=== PATIENT | female | born 1960 | race African-American/Black ===

== ENCOUNTER → 2016-05-14 | Outpatient (CLI) | payer OTHER ==
--- NOTE | 2016-05-19 13:37 | XCELERA REPORT ---
[address] [address] Transthoracic Echocardiogram Report Name: MARTI NESBITT Age: 55 yrs Gender: Female : 1960 Patient Status: Outpatient Patient Location: Study Date: 05/14/2016 11:23 AM Height: 65 in Weight: 220 lb BSA: 2.1 m2 Procedure: A complete two-dimensional transthoracic echocardiogram was performed (2D, M-mode, spectral and color flow Doppler). The study was technically difficult with many images being suboptimal in quality. Reason For Study: R94.39 Ordering Physician: [facility] Performed By: Nora Brian Interpretation Summary The left ventricular ejection fraction is normal. Doppler measurements suggest pseudonormalized left ventricular relaxation, which is associated with grade II/IV or mild to moderate diastolic dysfunction There is borderline concentric left ventricular hypertrophy. The left ventricle is grossly normal size. Not all wall segments were well visualized. Regional wall motion abnormalities cannot be excluded due to limited visualization. The right ventricular systolic function is normal. The left atrium is mildly dilated. The right atrium is normal in size There is no mitral valve stenosis. There is a trace amount of mitral regurgitation No aortic regurgitation is present. There is no aortic valve stenosis There is a trace or physiologic amount of tricuspid regurgitation There is mild pulmonary hypertension by echo Right ventricular systolic pressure is estimated to be elevated at 30- 40mmHg. The aortic root is not well visualized. The inferior vena cava was not well visualized There is no pericardial effusion. MMode/2D Measurements \T\ Calculations RVDd: 3.4 cm LVIDd: 4.8 cm FS: 39.0 % Ao root diam: 3.0 cm IVSd: 1.0 cm LVIDs: 3.0 cm EDV(Teich): 109.5 ml LVPWd: 0.96 cm ESV(Teich): 33.7 ml Ao root area: 7.0 cm2 EF(Teich): 69.3 % LA dimension: 4.4 cm Doppler Measurements \T\ Calculations MV E max jesus manuel: MV P1/2t max jesus manuel: Ao V2 max: LV V1 max P.4 cm/sec 84.9 cm/sec 138.5 cm/sec 6.8 mmHg MV A max jesus manuel: MV P1/2t: 69.1 msec Ao max PG: LV V1 max: 104.1 cm/sec 7.7 mmHg 130.8 cm/sec MV E/A: 0.81 MVA(P1/2t): 3.2 cm2 MV dec slope: 359.9 cm/sec2 MV dec time: 0.25 sec PA V2 max: TR max jesus manuel: 119.4 cm/sec 296.2 cm/sec PA max P.7 mmHgTR max P.1 mmHg Left Ventricle The left ventricle is grossly normal size. There is borderline concentric left ventricular hypertrophy. The left ventricular ejection fraction is normal. Doppler measurements suggest pseudonormalized left ventricular relaxation, which is associated with grade II/IV or mild to moderate diastolic dysfunction. Not all wall segments were well visualized. Regional wall motion abnormalities cannot be excluded due to limited visualization. Right Ventricle The right ventricle is grossly normal size. The right ventricular systolic function is normal. Atria The right atrium is normal in size. The left atrium is mildly dilated. Mitral Valve The mitral valve is grossly normal. There is no mitral valve stenosis. There is a trace amount of mitral regurgitation. Aortic Valve The aortic valve is not well visualized secondary to technical limitations. There is no aortic valve stenosis. No aortic regurgitation is present. Tricuspid Valve The tricuspid valve is not well visualized secondary to technical limitations. There is a trace or physiologic amount of tricuspid regurgitation. There is mild pulmonary hypertension by echo. Right ventricular systolic pressure is estimated to be elevated at 30-40mmHg. Pulmonic Valve The pulmonic valve is not well visualized. Great Vessels The aortic root is not well visualized. The inferior vena cava was not well visualized. Effusions There is no pericardial effusion. : [facility] [employer] [facility] [employer] > Troy Carver
== END ==
LOC: SP 10:58
DX: R94.39 Abnormal result of other cardiovascular function study (principal)
CPT/HCPCS: 93306

== ENCOUNTER 2016-06-09 12:32 | Observation (INO) | payer OTHER ==
[2016-06-09] MEDS ORDERED: ASPIRIN 81 MG TABLET, CHEWABLE PO ONE (13:05)
--- NOTE | 2016-06-09 13:08 | ER Document Report ---
ED Medical Screen (RME) - General Stated Complaint: DIZZY Mode of Arrival: Wheelchair Information source: Patient Notes: Patient complains of dizziness, diaphoresis, and pain to shoulder blade area that started earlier this morning. Patient complains of difficulty breathing. Patient states that upper back pain is currently resolved. hx: Patient reports some heart enlargement. dyslipidemia I have greeted and performed a rapid initial assessment of this patient. A comprehensive ED assessment and evaluation of the patient, analysis of test results and completion of the medical decision making process will be conducted by additional ED providers. TRAVEL OUTSIDE OF THE [place] IN LAST 30 DAYS: No - Related Data Allergies/Adverse Reactions: No Known Allergies Allergy (Verified 06/09/16 13:02) Past Medical History - Past Medical History Cardiac Medical History: Reports: Hx Hypercholesterolemia, Hx Hypertension Pulmonary Medical History: Reports: Hx Bronchitis, Hx COPD, Hx Pneumonia Denies: Hx Tuberculosis Neurological Medical History: Reports: Hx Migraine Renal/ Medical History: Reports: Hx Ectopic , Hx Ovarian Cysts GI Medical History: Reports: Hx Gastroesophageal Reflux Disease Psychiatric Medical History: Reports: Hx Depression Past Surgical History: Reports: Hx Gynecologic Surgery - ectopic, Hx Hysterectomy - Immunizations Hx Diphtheria, Pertussis, Tetanus Vaccination: No - unknown Physical Exam - Vital signs Vitals: Temp Pulse Resp BP Pulse Ox 98.1 F 82 34 H 139/85 H 94 06/09/16 13:01 06/09/16 13:01 06/09/16 13:01 06/09/16 13:01 06/09/16 13:01 - Respiratory Respiratory status: No respiratory distress Breath sounds: Normal. No: Rales, Rhonchi, Stridor, Wheezing Course - Vital Signs Vital signs: Temp Pulse Resp BP Pulse Ox 98.1 F 82 34 H 139/85 H 94 06/09/16 13:01 06/09/16 13:01 06/09/16 13:01 06/09/16 13:01 06/09/16 13:01
[2016-06-09 13:36] LABS: ABSOLUTE BASOPHILS # (AUTO) 0.1 10^3/uL (0.0-0.2); ABSOLUTE EOSINOPHILS # (AUTO) 0.1 10^3/uL (0.0-0.6); ABSOLUTE LYMPHOCYTES (AUTO) 2.5 10^3/uL (0.5-4.7); ABSOLUTE MONOCYTES (AUTO) 0.4 10^3/uL (0.1-1.4); ABSOLUTE NEUT (AUTO) 2.8 10^3/uL (1.7-8.2); EOSINOPHILS % (AUTO) 2.4 % (0-6); HEMATOCRIT 40.4 % (36.0-47.0); HEMOGLOBIN 13.4 g/dL (12.0-15.5); HGB HCT DIFFERENCE -0.2; LYMPHOCYTES % (AUTO) 42.5 % (13-45); MEAN CORPUSCULAR HEMOGLOBIN 28.1 pg (27.0-33.4); MEAN CORPUSCULAR HGB CONC 33.1 g/dL (32.0-36.0); MEAN CORPUSCULAR VOLUME 85 fl (80-97); MONOCYTES % (AUTO) 7.4 % (3-13); RED BLOOD COUNT 4.76 10^6/uL (3.72-5.28); RED CELL DISTRIBUTION WIDTH 13.6 % (11.5-14.0); SEGMENTED NEUTROPHILS % (AUTO) 46.7 % (42-78)
[2016-06-09 13:50] LABS: ALANINE AMINOTRANSFERASE 32 U/L (9-52); ALBUMIN 4.8 g/dL (3.5-5.0); ALKALINE PHOSPHATASE 102 U/L (38-126); ANION GAP 10 (5-19); ASPARTATE AMINO TRANSFERASE 20 U/L (14-36); BILIRUBIN,TOTAL 0.7 mg/dL (0.2-1.3); BLOOD UREA NITROGEN 22 mg/dL (7-20); CALCIUM 11.5 mg/dL (8.4-10.2); CARBON DIOXIDE 29 mmol/L (22-30); CHLORIDE 102 mmol/L (98-107); CREATINE KINASE 74 U/L (30-135); CREATININE RESULT 0.74 mg/dL (0.52-1.25); GLUCOSE 117 mg/dL (75-110); LIPASE 89.9 U/L (23-300); MAGNESIUM 1.8 mg/dL (1.6-2.3); POTASSIUM 4.4 mmol/L (3.6-5.0); SODIUM 141.3 mmol/L (137-145)
[2016-06-09 14:01] LABS: TROPONIN I < 0.012 ng/mL
--- NOTE | 2016-06-09 14:17 | ER Document Report ---
ED General - General Chief Complaint: Dizziness Stated Complaint: DIZZY Mode of Arrival: Wheelchair Information source: Patient Notes: 55 yr old female presents with complaints of diaphoresis, sob, neck pressure and chest pressure reading to bilateral shoulders. Patient notes symptoms lasted about 25 minutes. Denies any previous similar episodes has had a recent stress test TRAVEL OUTSIDE OF THE [place] IN LAST 30 DAYS: No - HPI Onset: Just prior to arrival Onset/Duration: Sudden Quality of pain: Pressure Severity: Mild Pain Level: 1 Associated symptoms: Chest pain, Shortness of breath Exacerbated by: Denies Relieved by: Denies Similar symptoms previously: No Recently seen / treated by doctor: Yes - Related Data Allergies/Adverse Reactions: No Known Allergies Allergy (Verified 06/09/16 13:02) Past Medical History - General Information source: Patient - Social History Smoking Status: Former Smoker Cigarette use (# per day): No Chew tobacco use (# tins/day): No Smoking Education Provided: No Frequency of alcohol use: None Drug Abuse: None Family History: Arthritis, CAD, CVA, DM, Hyperlipidemia, Hypertension, Malignancy Patient has suicidal ideation: No Patient has homicidal ideation: No - Past Medical History Cardiac Medical History: Reports: Hx Hypercholesterolemia, Hx Hypertension Pulmonary Medical History: Reports: Hx Bronchitis, Hx COPD, Hx Pneumonia Denies: Hx Tuberculosis Neurological Medical History: Reports: Hx Migraine Renal/ Medical History: Reports: Hx Ectopic , Hx Ovarian Cysts. Denies: Hx Peritoneal Dialysis GI Medical History: Reports: Hx Gastroesophageal Reflux Disease Psychiatric Medical History: Reports: Hx Depression Past Surgical History: Reports: Hx Gynecologic Surgery - ectopic, Hx Hysterectomy - Immunizations Hx Diphtheria, Pertussis, Tetanus Vaccination: No - unknown Review of Systems - Review of Systems Notes: REVIEW OF SYSTEMS: CONSTITUTIONAL : Admits to diaphoresis EENT: Admits to pressure to the neck. CARDIOVASCULAR: Admits to chest pain RESPIRATORY: shortness of breath GASTROINTESTINAL: Denies abdominal pain or distention. Denies nausea, vomiting , or diarrhea. Denies blood in vomitus, stools, or per rectum. Denies black, tarry stools. Denies constipation. GENITOURINARY: Denies difficulty urinating, painful urination, burning, frequency, blood in urine, or discharge. FEMALE GENITOURINARY: Denies vaginal bleeding, heavy or abnormal periods, irregular periods. Denies vaginal discharge or odor. MUSCULOSKELETAL: Miss pain rating to her back SKIN: Denies rash, lesions or sores. HEMATOLOGIC : Denies easy bruising or bleeding. LYMPHATIC: Denies swollen, enlarged glands. NEUROLOGICAL: Denies confusion or altered mental status. Denies passing out or loss of consciousness. Denies dizziness or lightheadedness. Denies headache. Denies weakness or paralysis or loss of use of either side. Denies problems with gait or speech. Denies sensory loss, numbness, or tingling. Denies seizures. PSYCHIATRIC: Denies anxiety or stress. Denies depression, suicidal ideation, or homicidal ideation. ALL OTHER SYSTEMS REVIEWED AND NEGATIVE. Dictation was performed using [employer] voice recognition software PHYSICAL EXAMINATION: GENERAL: Well-appearing, well-nourished and in no acute distress. HEAD: Atraumatic, normocephalic. EYES: Pupils equal round and reactive to light, extraocular movements intact, conjunctiva are normal. ENT: Nares patent, oropharynx clear without exudates. Moist mucous membranes. NECK: Normal range of motion, supple without lymphadenopathy LUNGS: Breath sounds clear to auscultation bilaterally and equal. No wheezes rales or rhonchi. HEART: Regular rate and rhythm without murmurs ABDOMEN: Soft, nontender, nondistended abdomen. No guarding, no rebound. No masses appreciated. Female : deferred Musculoskeletal: Normal range of motion, no pitting or edema. No cyanosis. NEUROLOGICAL: Cranial nerves grossly intact. Normal speech, normal gait. Normal sensory, motor exams PSYCH: Normal mood, normal affect. SKIN: Warm, Dry, normal turgor, no rashes or lesions noted. Physical Exam - Vital signs Vitals: Temp Pulse Resp BP Pulse Ox 98.1 F 82 34 H 139/85 H 94 06/09/16 13:01 06/09/16 13:01 06/09/16 13:01 06/09/16 13:01 06/09/16 13:01 Course - Re-evaluation Re-evalutation: 06/09/16 14:46 At this time patient is asymptomatic, recent stress test on March 21 of last year notes mild decreased uptake in the distal anterior wall consistent with mild ischemia however could be related to the breast attenuation artifact, given patient's symptoms I do believe 8 overnight stay is appropriate She will be admitted to hospitalist service for observation - Vital Signs Vital signs: Temp Pulse Resp BP Pulse Ox 98.1 F 71 18 155/88 H 98 06/09/16 13:01 06/09/16 14:24 06/09/16 14:24 06/09/16 14:24 06/09/16 14:24 - Laboratory Result Diagrams: 06/09/16 13:15 06/09/16 13:15 Laboratory results interpreted by me: 06/09/16 13:15 BUN 22 H Glucose 117 H Calcium 11.5 H - Diagnostic Test Radiology reviewed: Image reviewed, Reports reviewed - EKG Interpretation by Or EKG shows normal: Sinus rhythm, [place], Intervals, QRS Complexes Discharge - Discharge Clinical Impression: Excessive sweating Chest pain Qualifiers: Chest pain type: unspecified Qualified Code(s): R07.9 - Chest pain, unspecified Condition: Stable Disposition: ADMITTED OBSERVATION Admitting Provider: Hospitalist Unit Admitted: Telemetry
[2016-06-09] MEDS ORDERED: DIAZEPAM 5 MG TABLET PO PRN (14:54)
[2016-06-09] MEDS ORDERED: ONDANSETRON HCL INJ/PF 4 MG/2 ML SDV IV PRN (14:54)
[2016-06-09] MEDS ORDERED: NITROGLYCERIN 0.4 MG/TAB 25 TAB/BOTTLE SL PRN (14:54)
--- NOTE | 2016-06-09 17:03 | PDOC H&P ---
History of Present Illness Admission Date/PCP: 06/09/16 14:54 Patient complains of: Dizziness, diaphoresis and upper sternal chest pressure radiating to jaw History of Present Illness: MARTI NESBITT is a 55 year old female who presents to [facility]'s emergency department this afternoon, complaining of diaphoresis, dizziness, post scapular pain, and upper sternal chest pain. She states the episode occurred while she was in [employer] standing and lasted approximately 25 minutes. EMS was called and she was transported here and given 4 baby aspirin to chew in route. She states by the time she arrived here her pain had resolved. She has had no further episodes of pain or dizziness. She denies any shortness of breath, palpitations or dyspnea associated with pain. She had similar episodes of chest discomfort in March. She underwent a nuclear Cardiolite stress test here. Test was read by Dr. Carver, who states she has mild distal anterior wall ischemia or attenuation from breast tissue. She's had no further episodes of any chest discomfort up until this time. She states she was recently started on medication for cholesterol. She does not smoke or drink. She does have positive family history for coronary artery disease. She had an older sister who from sudden cardiac is 62. She states her mother also has history of coronary artery disease and is living. She denies having any nausea or vomiting associated with pain. She denies any history of GERD. She states she did not eat breakfast this morning but she quite often does not. Past Medical History Cardiac Medical History: Reports: Hyperlipidema, Hypertension Pulmonary Medical History: Reports: Bronchitis, Chronic Obstructive Pulmonary Disease (COPD), Pneumonia Denies: Tuberculosis Neurological Medical History: Reports: Migraine Endocrine Medical History: Reports: None Renal/ Medical History: Reports: None Malignancy Medical History: Reports: None GI Medical History: Reports: Gastroesophageal Reflux Disease Musculoskeltal Medical History: Reports: None Skin Medical History: Reports: None Psychiatric Medical History: Reports: Depression Traumatic Medical History: Reports: None Hematology: Reports: None Infectious Medical History: Reports: None Past Surgical History Past Surgical History: Reports: Hysterectomy Social History Information Source: Patient Lives with: Spouse/Significant other Smoking Status: Never Smoker Frequency of Alcohol Use: None Hx Recreational Drug Use: No Hx Prescription Drug Abuse: No - Advance Directive Resuscitation Status: Full Code Family History Family History: Arthritis, CAD, CVA, DM, Hyperlipidemia, Hypertension, Malignancy Parental Family History Reviewed: Yes Children Family History Reviewed: Yes Sibling(s) Family History Reviewed.: Yes Medication/Allergy Home Medications: Nitrofurantoin/Nitrofuran Mac [Macrobid 100 mg Capsule] 100 mg PO BID #10 capsule 04/02/15 Nystatin/Dexameth/Diphen [Magic Mouthwash (Omh Formula) Susp] 5 ml PO QID #120 ml 09/21/15 Doxycycline Hyclate 100 mg PO BID #20 capsule 11/17/15 Guaifenesin/Codeine Phosphate [Codeine-Guaifen 10-100 mg/5 ml] 5 - 10 ml PO Q6 # 120 liquid 11/17/15 Prednisone [Deltasone 20 mg Tablet] 3 tab PO DAILY 5 Days 11/17/15 Hydrocodone Bit/Homatropine [Hycodan Syrup 5-1.5 mg/5 ml Ud Cup] 5 ml PO Q4HP PRN #120 ml 12/02/15 Levofloxacin 500 mg PO DAILY #5 tablet 12/02/15 Prednisone [Deltasone 10 mg Tablet] 10 mg PO ASDIR PRN #15 tablet 12/29/15 Allergies/Adverse Reactions: No Known Allergies Allergy (Verified 06/09/16 13:02) Review of Systems Constitutional: ABSENT: chills, fever(s), headache(s), weight gain, weight loss Eyes: PRESENT: as per HPI Ears: PRESENT: as per HPI Cardiovascular: PRESENT: chest pain Respiratory: ABSENT: cough, hemoptysis Gastrointestinal: ABSENT: abdominal pain, constipation, diarrhea, hematemesis, hematochezia, nausea, vomiting Genitourinary: ABSENT: dysuria, hematuria Musculoskeletal: ABSENT: joint swelling Integumentary: ABSENT: rash, wounds Neurological: ABSENT: abnormal gait, abnormal speech, confusion, dizziness, focal weakness, syncope Psychiatric: ABSENT: anxiety, depression, homidical ideation, suicidal ideation Endocrine: ABSENT: cold intolerance, heat intolerance, polydipsia, polyuria Hematologic/Lymphatic: ABSENT: easy bleeding, easy bruising Physical Exam Vital Signs: Temp Pulse Resp BP Pulse Ox 98.1 F 71 18 155/88 H 98 06/09/16 13:01 06/09/16 14:24 06/09/16 14:24 06/09/16 14:24 02/05/17 15:11 General appearance: PRESENT: no acute distress, morbidly obese, well-developed, well-nourished Head exam: PRESENT: atraumatic, normocephalic Eye exam: PRESENT: conjunctiva pink, EOMI, PERRLA. ABSENT: scleral icterus Ear exam: PRESENT: normal external ear exam Mouth exam: PRESENT: moist, tongue midline Neck exam: ABSENT: carotid bruit, JVD, lymphadenopathy, thyromegaly Respiratory exam: PRESENT: clear to auscultation zoey. ABSENT: rales, rhonchi, wheezes Cardiovascular exam: PRESENT: RRR. ABSENT: diastolic murmur, rubs, systolic murmur Pulses: PRESENT: normal dorsalis pedis pul Vascular exam: PRESENT: normal capillary refill GI/Abdominal exam: PRESENT: normal bowel sounds, soft. ABSENT: distended, guarding, mass, organolmegaly, rebound, tenderness Rectal exam: PRESENT: deferred Extremities exam: PRESENT: full ROM. ABSENT: calf tenderness, clubbing, pedal edema Neurological exam: PRESENT: alert, awake, oriented to person, oriented to place , oriented to time, oriented to situation, CN II-XII grossly intact. ABSENT: motor sensory deficit Psychiatric exam: PRESENT: appropriate affect, normal mood. ABSENT: homicidal ideation, suicidal ideation Skin exam: PRESENT: dry, intact, warm. ABSENT: cyanosis, rash Results Impressions: Chest X-Ray 06/09/16 13:06 IMPRESSION: NO SIGNIFICANT RADIOGRAPHIC FINDING IN THE CHEST. Assessment & Plan - Diagnosis (1) Chest pain Qualifiers: Chest pain type: unspecified Qualified Code(s): R07.9 - Chest pain, unspecified Is this a current diagnosis for this admission?: YesPlan: Pain is atypical for angina. More likely GI origin. Will observe on tele overnight and do serial troponins (2) Diaphoresis Is this a current diagnosis for this admission?: YesPlan: Possible hypoglycemia will monitor (3) Dizziness Is this a current diagnosis for this admission?: YesPlan: Will monitor for arrythmia. (4) Dyslipidemia Is this a current diagnosis for this admission?: YesPlan: Will place on statin fasting lipid in am - Time Time Spent: 50 to 70 Minutes Critical Time spent with patient: 25-34 minutes Medications reviewed and adjusted accordingly: Yes Anticipated discharge: Home Within: within 24 hours
[2016-06-09 17:42] LABS: APPEARANCE,URINE SLIGHTLY-CLOUDY; BILIRUBIN,URINE NEGATIVE (NEGATIVE); CALCIUM OXALATE CRYSTALS,URINE MANY /HPF; GLUCOSE, URINE NEGATIVE (NEGATIVE); KETONES,URINE NEGATIVE (NEGATIVE); LEUKOCYTE ESTERASE,URINE NEGATIVE (NEGATIVE); NITRITE,URINE NEGATIVE (NEGATIVE); PROTEIN,URINE NEGATIVE (NEGATIVE); URINE SPECIFIC GRAVITY 1.028; UROBILINOGEN,URINE NEGATIVE mg/dL (<2.0)
--- NOTE | 2016-06-09 19:26 | EKG REPORT ---
SEVERITY:- NORMAL ECG - SINUS RHYTHM : Confirmed by: Troy Carver 09-Jun-2016 19:25:46
[2016-06-09] MEDS: LANSOPRAZOLE 30 MG TAB.RAP.DR PO SCH (19:48)
[2016-06-09] MEDS ORDERED: ATORVASTATIN CALCIUM 20 MG TABLET PO SCH (22:00)
[2016-06-10 03:32] LABS: CHOLESTEROL 229.38 mg/dL (0-200); Direct HDL 64 mg/dL (>40); TRIGLYCERIDES 123 mg/dL (<150)
[2016-06-10 03:44] LABS: DIRECT LDL 147 mg/dL (<100)
[2016-06-10] MEDS: LANSOPRAZOLE 30 MG TAB.RAP.DR PO SCH (06:09)
[2016-06-10 08:20] VITALS: BP 130/81
--- NOTE | 2016-06-10 08:56 | PDOC DISCHARGE SUMMARY ---
General - Admit/Disc Date/PCP Admission Date/Primary Care Provider: 06/09/16 14:54 Discharge Date: 06/10/16 - \ - Discharge Diagnosis (1) Chest pain Is this a current diagnosis for this admission?: YesSummary: Ruled out for acute coronary syndrome, most likely GERD (2) Diaphoresis Is this a current diagnosis for this admission?: YesSummary: Resolved (3) Dizziness Is this a current diagnosis for this admission?: YesSummary: Resolved (4) Dyslipidemia Is this a current diagnosis for this admission?: YesSummary: Fasting lipids this am show cholesterol 229 ldl 147 hdl 64. Will continue fish oil supplements - Additional Information Resuscitation Status: Full Code Discharge Diet: Regular Discharge Activity: Activity As Tolerated, Balance Activity w/Rest Home Medications: Biotin [Biotin 5 mg Capsule] 1 cap PO DAILY 06/10/16 Iron 1 tab PO DAILY 06/10/16 Multivitamin [Multivitamins] 1 cap PO DAILY 06/10/16 Vitamin E (Dl,Tocopheryl Acet) [Vitamin E] 1,000 units PO DAILY 06/10/16 History of Present Illness History of Present Illness: MARTI NESBITT is a 55 year old female who presents to [facility]'s emergency department this afternoon, complaining of diaphoresis, dizziness, post scapular pain, and upper sternal chest pain. 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 EMS was called and she was transported here and given 4 baby aspirin to chew in route. She states by the time she arrived here her pain had resolved. She has had no further episodes of pain or dizziness. She denies any shortness of breath, palpitations or dyspnea associated with pain. She had similar episodes of chest discomfort in March. She underwent a nuclear Cardiolite stress test here. Test was read by Dr. Carver, who states she has mild distal anterior wall ischemia or attenuation from breast tissue. She's had no further episodes of any chest discomfort up until this time. She states she was recently started on medication for cholesterol. She does not smoke or drink. She does have positive family history for coronary artery disease. She had an older sister who from sudden cardiac is 62. She states her mother also has history of coronary artery disease and is living. She denies having any nausea or vomiting associated with pain. She denies any history of GERD. She states she did not eat breakfast this morning but she quite often does not. Hospital Course Hospital Course: Patient was admitted to the telemetry floor and monitored overnight. She had no reoccurrence of her pain. She had no further episodes of dizziness. Serial troponins were done which were all < 0.012. telemetry showed no arrythmias. She did have occassional multifocal PVCs. She feels well and wishes to be discharged. She will follow up with primary care provider if symptoms reoccur. Physical Exam Vital Signs: Temp Pulse Resp BP Pulse Ox 97.6 F 75 16 130/81 H 100 06/10/16 08:19 06/10/16 08:19 06/10/16 08:19 06/10/16 08:19 06/10/16 08:19 Intake & Output 06/09/16 06/10/16 06/11/16 06:59 06:59 06:59 Intake Total 180 Balance 180 Weight 111 kg General appearance: PRESENT: no acute distress, well-developed, well-nourished Head exam: PRESENT: atraumatic, normocephalic Eye exam: PRESENT: conjunctiva pink, EOMI, PERRLA. ABSENT: scleral icterus Ear exam: PRESENT: normal external ear exam Mouth exam: PRESENT: moist, tongue midline Neck exam: ABSENT: carotid bruit, JVD, lymphadenopathy, thyromegaly Respiratory exam: PRESENT: clear to auscultation zoey. ABSENT: rales, rhonchi, wheezes Cardiovascular exam: PRESENT: RRR. ABSENT: diastolic murmur, rubs, systolic murmur Pulses: PRESENT: normal dorsalis pedis pul Vascular exam: PRESENT: normal capillary refill GI/Abdominal exam: PRESENT: normal bowel sounds, soft. ABSENT: distended, guarding, mass, organolmegaly, rebound, tenderness Rectal exam: PRESENT: deferred Extremities exam: PRESENT: full ROM. ABSENT: calf tenderness, clubbing, pedal edema Neurological exam: PRESENT: alert, awake, oriented to person, oriented to place , oriented to time, oriented to situation, CN II-XII grossly intact. ABSENT: motor sensory deficit Skin exam: PRESENT: dry, intact, warm. ABSENT: cyanosis, rash Results Laboratory Results: 06/09/16 06/10/16 17:19 03:06 Triglycerides 123 Cholesterol 229.38 H LDL Cholesterol Direct 147 H VLDL Cholesterol 25.0 HDL Cholesterol 64 Urine Color YELLOW Urine Appearance SLIGHTLY-CLOUDY Urine pH 5.0 Ur Specific [place] 1.028 Urine Protein NEGATIVE Urine Glucose (UA) NEGATIVE Urine Ketones NEGATIVE Urine Blood NEGATIVE Urine Nitrite NEGATIVE Ur Leukocyte Esterase NEGATIVE Urine WBC (Auto) 2 Urine RBC (Auto) 1 06/09/16 06/09/16 06/10/16 16:07 21:09 03:06 Troponin I < 0.012 < 0.012 < 0.012 Impressions: Chest X-Ray 06/09/16 13:06 IMPRESSION: NO SIGNIFICANT RADIOGRAPHIC FINDING IN THE CHEST. Qualifiers PATEINT BEING DISCHARGED WITH ANY OF THE FOLLOWING DIAGNOSIS?: No Plan Discharge Plan: Home with . Follow up if any symptoms reoccur. Time Spent: Less than 30 Minutes
[2016-06-10] MEDS ORDERED: ASPIRIN 81 MG TABLET, ENT COATED PO SCH (10:00)
== END 2016-06-10 09:41 | disposition home or self-care (01) ==
LOC: ER 12:32 → EH 14:54 → UNDOADMOB 15:13 → 5 18:30
PROVIDERS: ADMIT Internal Medicine; ATTEND Internal Medicine
DX: R07.9 Chest pain, unspecified (principal); R61 Generalized hyperhidrosis; R42 Dizziness and giddiness; E78.5 Hyperlipidemia, unspecified; J44.9 Chronic obstructive pulmonary disease, unspecified; K21.9 Gastro-esophageal reflux disease without esophagitis; G43.909 Migraine, unspecified, not intractable, without status migrainosus; F32.9 Major depressive disorder, single episode, unspecified; Z79.899 Other long term (current) drug therapy; Z90.710 Acquired absence of both cervix and uterus
CPT/HCPCS: 93005; 99285; 36415 ×2; 82553; 82550; 83690; 83735; 85025; 80053; 81001; 84484 ×2; 85379; 80061; 71020; 93010; G0378 ×3; J3490 ×2

== ENCOUNTER → 2016-06-18 | Outpatient (CLI) | payer OTHER | LOC: CCC 11:39 | DX: E83.52 Hypercalcemia (principal) | CPT/HCPCS: 36415; 82310 ==

== ENCOUNTER → 2016-08-23 | Outpatient (CLI) | payer OTHER | LOC: LAB 13:35 | DX: E83.52 Hypercalcemia (principal) | CPT/HCPCS: 36415; 82040; 82330; 84443 ==

== ENCOUNTER → 2016-08-27 | Outpatient (CLI) | payer OTHER ==
[2016-08-27 16:29] LABS: FREE T3 4.12 pg/mL (2.77-5.27)
[2016-08-27 16:43] LABS: THYROID STIMULATING HORMONE 0.7 uIU/mL (0.47-4.68)
[2016-08-29 11:56] LABS: PTH INTACT 101 pg/mL (15-65)
[2016-09-02 07:37] LABS: THYROID STIM IMMUNOGLOBULIN 56 % (0-139)
== END ==
LOC: LAB 15:02
DX: E05.90 Thyrotoxicosis, unspecified without thyrotoxic crisis or storm (principal); E83.52 Hypercalcemia
CPT/HCPCS: 36415; 83519; 83970; 84439; 84443; 84481

== ENCOUNTER 2016-10-11 09:50 | Emergency (ER) | payer OTHER ==
--- NOTE | 2016-10-11 10:20 | ER Document Report ---
ED GI/ - General Chief Complaint: Vaginal Itching Stated Complaint: VAGINAL PROBLEM Time Seen by Provider: 10/11/16 10:10 Mode of Arrival: Ambulatory Notes: 55-year-old female presents to ED for vaginal burning and itching. She states it has been going on for a week or two. TRAVEL OUTSIDE OF THE [place] IN LAST 30 DAYS: No - HPI Patient complains to provider of: Vaginal discharge Onset: Other - 1-2 weeks Quality of pain: Burning Severity at maximum: Mild Severity in ED: Mild Pain Level: 1 Vaginal bleeding (Compared to normal period): None Menstrual period history: Post-menopausal LMP: hysterectomy Associated symptoms: Vaginal discharge, Other - odor, itching and burning Exacerbated by: Denies Relieved by: Denies Similar symptoms previously: Yes Recently seen / treated by doctor: No - Related Data Allergies/Adverse Reactions: No Known Allergies Allergy (Verified 10/11/16 09:52) Past Medical History - General Information source: Patient - Social History Smoking Status: Never Smoker Cigarette use (# per day): No Chew tobacco use (# tins/day): No Smoking Education Provided: No Frequency of alcohol use: None Drug Abuse: None Lives with: Family Family History: Arthritis, CAD, CVA, DM, Hyperlipidemia, Hypertension, Malignancy, Thyroid Disfunction Patient has suicidal ideation: No Patient has homicidal ideation: No - Past Medical History Cardiac Medical History: Reports: Hx Hypercholesterolemia, Other - She is being tested for heart problems she is not sure what is going on at this time Pulmonary Medical History: Reports: Hx Bronchitis, Hx Pneumonia EENT Medical History: Reports: None Neurological Medical History: Reports: Hx Cerebrovascular Accident, Hx Migraine Endocrine Medical History: Reports: Other - Hyperparathyroid hypocalcemia Renal/ Medical History: Reports: Hx Ectopic , Hx Ovarian Cysts Malignancy Medical History: Reports: None GI Medical History: Reports: None Musculoskeltal Medical History: Reports Hx Arthritis Skin Medical History: Reports None Psychiatric Medical History: Reports: Hx Bipolar Disorder, Hx Depression - Medication free x 4 years Traumatic Medical History: Reports: None Infectious Medical History: Reports: None Past Surgical History: Reports: Hx Gynecologic Surgery - ectopic, Hx Hysterectomy - Immunizations Hx Diphtheria, Pertussis, Tetanus Vaccination: No - unknown Review of Systems - Review of Systems Constitutional: No symptoms reported EENT: No symptoms reported Cardiovascular: No symptoms reported Respiratory: No symptoms reported Gastrointestinal: No symptoms reported Genitourinary: No symptoms reported Female Genitourinary: Vaginal discharge, Vaginal odor, Other - Vaginal burning Musculoskeletal: No symptoms reported Skin: No symptoms reported Hematologic/Lymphatic: No symptoms reported Neurological/Psychological: No symptoms reported -: Yes All other systems reviewed and negative Physical Exam - Vital signs Vitals: Temp Pulse Resp BP Pulse Ox 97.7 F 84 20 143/83 H 96 10/11/16 09:52 10/11/16 09:52 10/11/16 09:52 10/11/16 09:52 10/11/16 09:52 Interpretation: Normal - General General appearance: Appears well, Alert - HEENT Head: Normocephalic, Atraumatic Eyes: Normal Pupils: PERRL - Respiratory Respiratory status: No respiratory distress Chest status: Nontender Breath sounds: Normal Chest palpation: Normal - Cardiovascular Rhythm: Regular Heart sounds: Normal auscultation Murmur: No - Abdominal Inspection: Normal Distension: No distension Bowel sounds: Normal Tenderness: Nontender Organomegaly: No organomegaly - Back Back: Normal, Nontender - Extremities General upper extremity: Normal inspection, Nontender, Normal color, Normal ROM , Normal temperature General lower extremity: Normal inspection, Nontender, Normal color, Normal ROM , Normal temperature, Normal weight bearing. No: Mohini's sign - Neurological Neuro grossly intact: Yes Cognition: Normal Orientation: AAOx4 Susan Coma Scale Eye Opening: Spontaneous [place] Coma Scale Verbal: Oriented [place] Coma Scale Motor: Obeys Commands [place] Coma Scale Total: 15 Speech: Normal Motor strength normal: LUE, RUE, LLE, RLE Sensory: Normal - Psychological Associated symptoms: Normal affect, Normal mood - Skin Skin Temperature: Warm Skin Moisture: Dry Skin Color: Normal Course - Vital Signs Vital signs: Temp Pulse Resp BP Pulse Ox 98.4 F 80 18 149/82 H 98 10/11/16 12:34 10/11/16 12:34 10/11/16 12:34 10/11/16 12:34 10/11/16 12:34 - Laboratory Laboratory results interpreted by me: 10/11/16 10:40 Urine Blood MODERATE H Discharge - Discharge Clinical Impression: Vaginal itching Condition: Stable Disposition: HOME, SELF-CARE Instructions: Family Physicians / Practices Additional Instructions: You were seen today for vaginal itching and irritation with an intermittent vaginal odor. please call in 2 hours for results at [phone] CEPHALOSPORINS: An antibiotic of the cephalosporin class has been prescribed. This type of antibiotic covers a wide variety of infections, including those of the skin, lungs, middle ear, and urinary tract. This antibiotic is somewhat similar to the penicillin family. In rare cases , a person who is allergic to penicillin will also be allergic to this medication. If you have had a severe allergic reaction to penicillin, and have not taken this antibiotic since that time, notify your doctor. Antibiotics which cover many germs ("broad spectrum" antibiotics) are more likely to cause diarrhea or "yeast" infections. Women prone to vaginal yeast problems may suffer an attack after taking this antibiotic. In infants, oral thrush (white spots "stuck" on the cheek) or yeast diaper rash may result. See your doctor if these problems occur. Call the doctor at once if you develop hives, itching, shortness of breath , or lightheadedness. DOXYCYCLINE: Doxycycline (Vibramycin, Doryx) is an antibiotic of the tetracycline family. This type of drug is useful for infections of the respiratory tract and genital tract, and is sometimes used for intestinal infections. Unlike most tetracyclines, doxycycline can be taken with food. It is longer acting, and (usually) less prone to side effects than regular tetracycline. Tetracycline antibiotics can stain immature teeth and SHOULD NOT BE TAKEN BY CHILDREN, NURSING MOTHERS, OR WOMEN. Tetracyclines can make you more prone to sunburn. Abdominal cramping, nausea, and diarrhea are occasional side effects. Women may experience vaginal yeast infections. Call the doctor at once if you develop hives, itching, shortness of breath , or lightheadedness. AZITHROMYCIN: Azithromycin (Zithromax) is a broad spectrum antibiotic in the same class as erythromycin. It can treat a variety of bacterial infections, but is most frequently used for respiratory infections. Azithromycin is extremely long-lasting. It accumulates in body tissues and continues to kill bacteria for many days. In order to improve absorption, Azithromycin should be taken at least one hour before or two hours after a meal. It does not have the same strong tendency to upset the stomach as erythromycin and is usually very well tolerated. Patients who have had a rash or other true allergic reactions to erythromycin should not take this medication. Call if you develop gastrointestinal distress, severe diarrhea, rash, hives, itching, or shortness of breath. METRONIDAZOLE: Metronidazole (Flagyl) has been prescribed. This medication is used to kill a type of bacteria called anaerobes, and protozoan parasites such as trichomonas and Giardia. Flagyl often causes a metallic taste in the mouth and mild nausea. Do not use alcohol in any form with Flagyl (including alcohol in medication elixirs). Flagyl interacts with alcohol to cause flushing, palpitations, headache, stomach cramps, and vomiting. Do not use Flagyl if you are taking Antabuse (disulfiram). Call the doctor at once if you develop rash, shortness of breath, itching, or lightheadedness. FLUCONAZOLE: Fluconazole (Diflucan) is an antifungal drug. It is useful for serious fungal infections, but is also excellent for oral or vaginal yeast infections. Diflucan interacts with some medicines. This is a concern if you are taking anticoagulants (such as Coumadin), phenytoin (Dilantin), cyclosporin, or oral hypoglycemics (such as tolbutamide, Orinase, glipizide, Glucotrol, glyburide, DiaBeta, Glynase, and Micronase). Be sure the doctor knows if you are taking one of these medicines. We don't know how Diflucan affects . If you are planning to become , discuss this with your doctor. Diflucan has few side effects. Minor side effects may include nausea, headache, or diarrhea. Call the doctor if you develop a skin rash, shortness of breath, or other new symptoms. MICONAZOLE: Several brands of miconazole are available without prescription. These medicines are safe and effective for dev (yeast) vaginal infections. You can select suppositories or cream. Brands include Monistat, Gyne-Lotrimin, and Mycelex. Don't use miconazole if you're , unless you discuss it with your doctor. If you develop rash, irritation, fever, increased discharge, or abdominal pain, stop using the medicine and see your doctor. FOLLOW-UP CARE: If you have been referred to a physician for follow-up care, call the physician s office for an appointment as you were instructed or within the next two days. If you experience worsening or a significant change in your symptoms, notify the physician immediately or return to the Emergency Department at any time for re-evaluation. Forms: Elevated Blood Pressure Referrals: [facility] [Provider Group] - Follow up as needed
[2016-10-11 11:31] LABS: APPEARANCE,URINE SLIGHTLY-CLOUDY; BILIRUBIN,URINE NEGATIVE (NEGATIVE); GLUCOSE, URINE NEGATIVE (NEGATIVE); KETONES,URINE NEGATIVE (NEGATIVE); PROTEIN,URINE NEGATIVE (NEGATIVE); URINE SPECIFIC GRAVITY 1.029; UROBILINOGEN,URINE NEGATIVE mg/dL (<2.0)
[2016-10-11 11:32] LABS: LEUKOCYTE ESTERASE,URINE NEGATIVE (NEGATIVE); NITRITE,URINE NEGATIVE (NEGATIVE); WBC,URINE 0-1 /HPF
[2016-10-11] MEDS ORDERED: AZITHROMYCIN 250 MG TABLET PO ONE (11:49)
[2016-10-11] MEDS ORDERED: CEFTRIAXONE INJ 250 MG VIAL IM ONE (11:49)
[2016-10-11] MEDS ORDERED: LIDOCAINE 1% INJ-PF (10 MG/ML) 30 ML SDV INJ ONE (11:49)
[2016-10-11 12:35] VITALS: BP 149/82
[2016-10-11 14:11] LABS: CHLAM PCR NOT DETECTED (NOT DETECT)
== END 2016-10-11 12:34 | disposition home or self-care (01) ==
LOC: ER 09:50
DX: L29.2 Pruritus vulvae (principal); R10.2 Pelvic and perineal pain; N89.8 Other specified noninflammatory disorders of vagina
CPT/HCPCS: 99283; 96372; 87210; 81001; 87491; 87591; J3490; J0696

== ENCOUNTER → 2016-10-24 | Outpatient (CLI) | payer OTHER ==
--- NOTE | 2016-10-24 16:02 | RADIOLOGY REPORT (SQ) ---
EXAM DESCRIPTION: NM PARATHYROID IMAGING COMPLETED DATE/TIME: 10/24/2016 3:13 pm REASON FOR STUDY: HYPEERPARATHYROIDISM E21.3 HYPERPARATHYROIDISM, UNSPECIFIED COMPARISON: CT soft tissue neck 09/21/2015 RADIONUCLIDE AND DOSE: 21.6 millicuries Tc-99m Sestamibi. The route of agent administration: Intravenous ADDITIONAL DRUGS AND DOSES: None. TECHNIQUE: Early and delayed images of the neck acquired following radionuclide administration. LIMITATIONS: None. FINDINGS: Thyroid: Normal size. Homogeneous activity. Normal washout. No focal lesions. Parathyroid: No retained activity in the thyroid or elsewhere in the neck to indicate a parathyroid a denoma. Other: There is parotid gland and submandibular gland uptake which is within normal limits. IMPRESSION: No ectopic activity worrisome parathyroid adenoma through the neck or upper chest. TECHNICAL DOCUMENTATION: JOB ID: [id number] [employer]- All Rights Reserved
== END ==
LOC: RAD 10:49
DX: E21.3 Hyperparathyroidism, unspecified (principal)
CPT/HCPCS: 78070; A9500; Q9969

== ENCOUNTER 2016-11-05 17:24 | Emergency (ER) | payer OTHER ==
[2016-11-05] MEDS ORDERED: IBUPROFEN 800 MG TABLET PO ONE (17:52)
--- NOTE | 2016-11-05 17:54 | ER Document Report ---
HPI - HPI Patient complains to provider of: left knee and foot pain Onset: Other Quality of pain: Achy Severity: Severe Pain Level: 4 Context: Patient presents emergency department with complaints of left knee swelling and left foot pain. Patient reports her left knee has been hurting for the past week. She reports today she stepped out of the shower onto her left foot that felt like an explosion in her left foot. She denies past medical history of injury to the foot or knee. She reports she has not had any recent trauma. 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 He reports that she is able to walk but it hurts. Associated Symptoms: None Exacerbated by: Walking Relieved by: Denies Similar symptoms previously: No Recently seen / treated by doctor: No - REPRODUCTIVE Reproductive: DENIES: : - DERM Skin Color: Normal Past Medical History - General Information source: Patient Last Menstrual Period: hyst - Social History Smoking Status: Unknown if Ever Smoked Cigarette use (# per day): No Frequency of alcohol use: None Drug Abuse: None Lives with: Family Family History: Arthritis, CAD, CVA, DM, Hyperlipidemia, Hypertension, Malignancy Patient has suicidal ideation: No Patient has homicidal ideation: No - Past Medical History Cardiac Medical History: Reports: Hx Hypercholesterolemia Denies: Hx Congestive Heart Failure, Hx Heart Attack, Hx Hypertension Pulmonary Medical History: Reports: Hx Bronchitis, Hx Pneumonia Denies: Hx Asthma, Hx COPD, Hx Tuberculosis Neurological Medical History: Reports: Hx Cerebrovascular Accident, Hx Migraine. Denies: Hx Seizures Renal/ Medical History: Reports: Hx Ectopic , Hx Ovarian Cysts. Denies: Hx End Stage Renal Disease, Hx Kidney Stones, Hx Peritoneal Dialysis GI Medical History: Denies: Hx Cirrhosis, Hx Gastroesophageal Reflux Disease, Hx Ulcer Musculoskeltal Medical History: Reports Hx Arthritis, Denies Hx Multiple Sclerosis Psychiatric Medical History: Reports: Hx Bipolar Disorder, Hx Depression - Medication free x 4 years Denies: Hx Schizophrenia Past Surgical History: Reports: Hx Gynecologic Surgery - ectopic, Hx Hysterectomy - Immunizations Hx Diphtheria, Pertussis, Tetanus Vaccination: No - unknown Vertical Provider Document - CONSTITUTIONAL Agree With Documented VS: Yes Exam Limitations: No Limitations General Appearance: WD/WN, No Apparent Distress - INFECTION CONTROL TRAVEL OUTSIDE OF THE [place] IN LAST 30 DAYS: No - HEENT HEENT: Atraumatic, Normocephalic - NECK Neck: Supple - RESPIRATORY Respiratory: No Respiratory Distress O2 Sat by Pulse Oximetry: 93 - CARDIOVASCULAR Cardiovascular: Regular Rate - MUSCULOSKELETAL/EXTREMETIES Musculoskeletal/Extremeties: MAEW, FROM, Tender - left dorsal and plantar lens generating machine tender, no obvious deformity, no swelling, no erythema, no warmth. good pedal pulse, brisk cap refill. Course - Re-evaluation Re-evalutation: 11/05/16 19:11 Patient instructed on negative x-rays. Justo wrap and crutches ordered. Patient declines Justo wrap and request ankle stirrup splint. Patient was instructed to follow-up with orthopedics for continued pain. She verbalized understanding. - Vital Signs Vital signs: Temp Pulse Resp BP Pulse Ox 98.3 F 88 140/78 H 93 11/05/16 17:38 11/05/16 17:38 11/05/16 17:38 11/05/16 17:38 - Diagnostic Test Radiology reviewed: Image reviewed, Reports reviewed - neg foot , degenerative changes knee Procedures - Immobilization Left Ankle Pre-Proc Neuro Vasc Exam: Normal Immobilizer type: Ankle stirrup Performed by: PCT Post-Proc Neuro Vasc Exam: Unchanged from pre-exam Discharge - Discharge Clinical Impression: Left foot pain, Elevated blood pressure reading Condition: Stable Disposition: HOME, SELF-CARE Instructions: Justo Wrap ([facility]), Use of Crutches ([facility]), Ice & Elevation ([facility]), Use of Aktm-Hku-Adwzwpt Ibuprofen ([facility]) Additional Instructions: *You have been evaluated for left foot pain *Maintain the justo wrap and use the crutches for the next three days *Rest/Ice/Elevate your foot *Follow up with your primary care provider within five days for recheck *Follow up with orthopedics for continued pain-call for an appointment *Take ibuprofen as indicated *Return to ED for worsening condition, changes, needs Monitor your blood pressure. Your blood pressure was elevated today. This may be because you were anxious, in pain or because you need medication. It is important to follow up with your primary care provider for full evaluation. Forms: Elevated Blood Pressure Referrals: [facility] [Primary Care Provider] - Follow up in 3-5 days
--- NOTE | 2016-11-05 18:45 | RADIOLOGY REPORT (SQ) ---
EXAM DESCRIPTION: KNEE LEFT 4 VIEW COMPLETED DATE/TIME: 11/05/2016 6:36 pm REASON FOR STUDY: pain COMPARISON: None. NUMBER OF VIEWS: Four views. TECHNIQUE: AP, lateral, and both oblique radiographic images acquired of the left knee. LIMITATIONS: None. FINDINGS: MINERALIZATION: Normal. BONES: No acute fracture or dislocation. No worrisome bone lesions. Osteophytic lipping is identified at the level of the medial compartment. Patellar spurring is identified. JOINT: There is decrease in the medial compartment. OTHER: No other significant finding. IMPRESSION: Degenerative changes without evidence for fracture. TECHNICAL DOCUMENTATION: JOB ID: [id number] [employer]- All Rights Reserved
--- NOTE | 2016-11-05 18:47 | RADIOLOGY REPORT (SQ) ---
EXAM DESCRIPTION: FOOT LEFT COMPLETE COMPLETED DATE/TIME: 11/05/2016 6:36 pm REASON FOR STUDY: pain COMPARISON: None. NUMBER OF VIEWS: Three views. TECHNIQUE: AP, lateral and oblique radiographic images acquired of the left foot. LIMITATIONS: None. FINDINGS: MINERALIZATION: Normal. BONES: No acute fracture or dislocation. No worrisome bone lesions. JOINTS: No effusions. SOFT TISSUES: No soft tissue swelling. No foreign body. OTHER: No other significant finding. IMPRESSION: NEGATIVE STUDY OF THE LEFT FOOT. NO RADIOGRAPHIC EVIDENCE OF ACUTE INJURY. TECHNICAL DOCUMENTATION: JOB ID: [id number] [employer]- All Rights Reserved
[2016-11-05 19:19] VITALS: BP 142/91
== END 2016-11-05 19:17 | disposition home or self-care (01) ==
LOC: ER 17:24
DX: M79.672 Pain in left foot (principal); M25.562 Pain in left knee; M25.462 Effusion, left knee; R03.0 Elevated blood-pressure reading, without diagnosis of hypertension
CPT/HCPCS: 99283; 73630; 73562; L1902

== ENCOUNTER → 2016-12-24 | Outpatient (CLI) | payer OTHER ==
--- NOTE | 2016-12-24 13:30 | RADIOLOGY REPORT (SQ) ---
EXAM DESCRIPTION: KNEE RIGHT 4 VIEWS COMPLETED DATE/TIME: 12/24/2016 12:18 pm REASON FOR STUDY: B/L KNEE PAIN Z12.31 ENCNTR SCREEN MAMMOGRAM FOR MALIGNANT NEOPLASM OF SUZI COMPARISON: None. NUMBER OF VIEWS: Four views. TECHNIQUE: AP, lateral, and both oblique radiographic images acquired of the right knee. LIMITATIONS: None. FINDINGS: MINERALIZATION: Normal. BONES: No acute fracture or dislocation. No worrisome bone lesions. No significant osteophytes. JOINT: Mild degenerative narrowing of the medial joint compartment with associated minimal hypertroph ic spurring. No joint effusion. No chondrocalcinosis. OTHER: Degenerative narrowing of the patellofemoral IMPRESSION: Mild degenerative compromise of the medial joint compartment with associated minimal hyp ertrophic spurring. Mild degenerative narrowing of the patellofemoral joint. TECHNICAL DOCUMENTATION: JOB ID: [id number] [employer]- All Rights Reserved
--- NOTE | 2016-12-24 13:31 | RADIOLOGY REPORT (SQ) ---
EXAM DESCRIPTION: KNEE LEFT 4 VIEW COMPLETED DATE/TIME: 12/24/2016 12:18 pm REASON FOR STUDY: B/L KNEE PAIN Z12.31 ENCNTR SCREEN MAMMOGRAM FOR MALIGNANT NEOPLASM OF SUZI COMPARISON: None. NUMBER OF VIEWS: Four views. TECHNIQUE: AP, lateral, and both oblique radiographic images acquired of the left knee. LIMITATIONS: None. FINDINGS: MINERALIZATION: Normal. BONES: No acute fracture or dislocation. No worrisome bone lesions. JOINT: Mild degenerative compromise of the medial joint compartment with associated hypertrophic spur ring. SOFT TISSUES: No soft tissue swelling. No radio-opaque foreign body. OTHER: Mild degenerative narrowing of the patellofemoral joint. IMPRESSION: Mild degenerative compromise of the medial joint compartment with associated hypertrophi c spurring. Mild degenerative narrowing of the patellofemoral joint. TECHNICAL DOCUMENTATION: JOB ID: [id number] [employer]- All Rights Reserved
--- NOTE | 2016-12-24 15:57 | WOMENS IMAGING REPORT ---
EXAM DESCRIPTION: BILAT SCREENING MAMMO W/CAD COMPLETED DATE/TIME: 12/24/2016 1:10 pm REASON FOR STUDY: ROUTINE SCREENING; Z12.31 Z12.31 ENCNTR SCREEN MAMMOGRAM FOR MALIGNANT NEOPLASM O F SUZI COMPARISON: None. TECHNIQUE: Standard craniocaudal and mediolateral oblique views of each breast recorded using [employer] l acquisition. LIMITATIONS: None. FINDINGS: No masses, calcifications or architectural distortion. No areas of suspicion. Read with the assistance of CAD. .[facility] - R2 [employer] Version 1.3 .[facility] - R2 Cen[employer] Version 1.3 .[facility] - R2 Cenova Version 2.4 .[facility] [place] R2 Cenova Version 2.4 .[facility] - R2 [employer] Version 9.2 IMPRESSION: NORMAL MAMMOGRAM. BIRADS 1. BREAST DENSITY: b. There are scattered areas of fibroglandular density. BIRAD: 1 NEGATIVE RECOMMENDATION: ROUTINE SCREENING COMMENT: The patient has been notified of the results by letter per SA requirements. Additional no tification policies are in place for contacting patient with suspicious or incomplete findings. Quality ID #[id number]: The [employer] recommends an annual screening mammogram for women aged 40 years or over. This facility utilizes a reminder system to ensure that all patients receive reminder letters, and/or direct phone calls for appointments. This includes reminders for routine scr eening mammograms, diagnostic mammograms, or other Breast Imaging Interventions when appropriate. Th is patient will be placed in the appropriate reminder system. The [employer] (ACR) has developed recommendations for screening MRI of the breast s in certain patient populations, to be used in conjunction with mammography. Breast MRI surveillanc e may be appropriate for women with more than 20% lifetime risk of developing breast cancer as deter mined by genetic testing, significant family history of the disease, or history of mantle radiation f or Hodgkins Disease. ACR Practice Guidelines 2008. TECHNICAL DOCUMENTATION: FINDING NUMBER: (1) ASSESSMENT: (1) JOB ID: [id number] [employer]- All Rights Reserved
== END ==
LOC: WI 11:20
PROVIDERS: ATTEND Internal Medicine
DX: Z12.31 Encounter for screening mammogram for malignant neoplasm of breast (principal); M25.562 Pain in left knee; M25.561 Pain in right knee
CPT/HCPCS: 73562; 73564; G0202; 77067

== ENCOUNTER 2017-04-07 11:42 | Emergency (ER) | payer OTHER ==
[2017-04-07] MEDS ORDERED: CYCLOBENZAPRINE HCL 10 MG TABLET PO ONE (12:54)
[2017-04-07] MEDS ORDERED: LIDOCAINE 5% (700 MG) TRANSDERMAL ADH..PATCH TP ONE (12:54)
[2017-04-07] MEDS ORDERED: ACETAMINOPHEN 325 MG TABLET PO ONE (12:54)
--- NOTE | 2017-04-07 12:55 | ER Document Report ---
HPI - HPI Patient complains to provider of: Right upper back pain Onset: Other - 2 days ago Onset/Duration: Persistent Quality of pain: Achy Pain Level: 4 Context: Patient states she was stepping up into a vehicle and her shoe slid causing her to fall into the seat. Patient states since then she has had right upper back pain that is worse when she moves her right upper extremity or twists her torso. Patient states the pain occasionally will make her nauseous. Patient denies any vomiting. Patient denies any cough, fever or urinary symptoms. Associated Symptoms: Other - Right upper back pain Exacerbated by: Movement Relieved by: Remaining still Similar symptoms previously: No Recently seen / treated by doctor: No - ROS ROS below otherwise negative: Yes Systems Reviewed and Negative: Yes All other systems reviewed and negative - CONSTITUTIONAL Constitutional: DENIES: Fever, Chills - NEURO Neurology: DENIES: Headache, Weakness - CARDIOVASCULAR Cardiovascular: DENIES: Chest pain - RESPIRATORY Respiratory: DENIES: Trouble Breathing, Coughing - GASTROINTESTINAL Gastrointestinal: REPORTS: Nausea. DENIES: Abdominal Pain, Patient vomiting - URINARY Urinary: DENIES: Dysuria, Urgency, Frequency - REPRODUCTIVE Reproductive: DENIES: : - MUSCULOSKELETAL Musculoskeletal: REPORTS: Back Pain. DENIES: Extremity pain, Neck Pain - DERM Skin Color: Normal Skin Problems: None Past Medical History - General Information source: Patient - Social History Smoking Status: Never Smoker Frequency of alcohol use: None Drug Abuse: None Occupation: None Lives with: Family Family History: Arthritis, CAD, CVA, DM, Hyperlipidemia, Hypertension, Malignancy - Past Medical History Cardiac Medical History: Reports: Hx Hypercholesterolemia Denies: Hx Congestive Heart Failure, Hx Heart Attack, Hx Hypertension Pulmonary Medical History: Reports: Hx Bronchitis, Hx Pneumonia Denies: Hx Asthma, Hx COPD, Hx Tuberculosis Neurological Medical History: Reports: Hx Cerebrovascular Accident, Hx Migraine. Denies: Hx Seizures Endocrine Medical History: Reports: Other - Hypercalcemia, hyperparathyroid Renal/ Medical History: Reports: Hx Ectopic , Hx Ovarian Cysts. Denies: Hx End Stage Renal Disease, Hx Kidney Stones, Hx Peritoneal Dialysis GI Medical History: Denies: Hx Cirrhosis, Hx Gastroesophageal Reflux Disease, Hx Ulcer Musculoskeltal Medical History: Reports Hx Arthritis, Denies Hx Multiple Sclerosis Psychiatric Medical History: Reports: Hx Bipolar Disorder, Hx Depression - Medication free x 4 years Denies: Hx Schizophrenia Past Surgical History: Reports: Hx Gynecologic Surgery - ectopic, Hx Hysterectomy - Immunizations Hx Diphtheria, Pertussis, Tetanus Vaccination: No - unknown Vertical Provider Document - CONSTITUTIONAL Agree With Documented VS: Yes Exam Limitations: No Limitations General Appearance: WD/WN, No Apparent Distress - INFECTION CONTROL TRAVEL OUTSIDE OF THE [place] IN LAST 30 DAYS: No - HEENT HEENT: Atraumatic, Normocephalic - NECK Neck: Normal Inspection, Supple - RESPIRATORY Respiratory: Breath Sounds Normal, No Respiratory Distress, Chest Non-Tender - Right posterior thoracic back pain with deep inspiration. negative: Rales, Rhonchi, Wheezing O2 Sat by Pulse Oximetry: 96 - CARDIOVASCULAR Cardiovascular: Regular Rate, Regular Rhythm, No Murmur - GI/ABDOMEN Gastrointestinal: Abdomen Soft, Abdomen Non-Tender, No Organomegaly, Normal Bowel Sounds - BACK Back: Abnormal Inspection - Right thoracic back pain reproduced with palpation, deep inspiration and movement of trunk and upper extremities - MUSCULOSKELETAL/EXTREMETIES Musculoskeletal/Extremeties: MAEW, FROM - NEURO Level of Consciousness: Awake, Alert, Appropriate - DERM Integumentary: Warm, Dry, No Rash Course - Re-evaluation Re-evalutation: 04/07/17 14:33 Reviewed patient's x-ray as well as her urinalysis results. No concern for UTI , Pyelonephritis or kidney stone at this time given normal urinalysis. No concern for rib fracture, pneumonia or PE. Patient not tachycardic or hypoxic. Patient without any recent travel or immobilization. Discussed plan of care with patient, patient verbalized understanding and agrees with plan at this time. Patient states she feels as though she could become more comfortable if she could go home and rest in her own bed. - Vital Signs Vital signs: Temp Pulse Resp BP Pulse Ox 98.8 F 92 18 131/86 H 96 04/07/17 11:47 04/07/17 11:47 04/07/17 11:47 04/07/17 11:47 04/07/17 11:47 - Laboratory Laboratory results interpreted by me: 04/07/17 14:32 Labs- Entire Visit 04/07/17 13:15 Urine Color YELLOW Urine Appearance SLIGHTLY-CLOUDY Urine pH 5.0 Ur Specific Henderson 1.027 Urine Protein NEGATIVE Urine Glucose (UA) NEGATIVE Urine Ketones NEGATIVE Urine Blood NEGATIVE Urine Nitrite NEGATIVE Urine Bilirubin NEGATIVE Urine Urobilinogen NEGATIVE Ur Leukocyte Esterase NEGATIVE Urine RBC RARE Urine WBC RARE Ur Squamous Epith Cells FEW Amorphous Sediment TRACE Urine Bacteria 2+ Urine Mucus 2+ Urine Ascorbic Acid NEGATIVE - Diagnostic Test Radiology reviewed: Reports reviewed Discharge - Discharge Clinical Impression: Thoracic back pain Qualifiers: Chronicity: acute Back pain laterality: right Qualified Code(s): M54.6 - Pain in thoracic spine Condition: Stable Disposition: HOME, SELF-CARE Instructions: Ice Packs ([facility]), Muscle Relaxers ([facility]), Muscle Strain ([facility]), Upper Back Strain ([facility]), Warm Packs ([facility]) Additional Instructions: Return immediately for any new or worsening symptoms Followup with your primary care provider, call tomorrow to make a followup appointment Follow-up with your primary doctor tomorrow for recheck Prescriptions: Cyclobenzaprine HCl [Flexeril 5 mg Tablet] 5 mg PO TID #15 tablet Referrals: [facility] [Provider Group] - Follow up tomorrow
[2017-04-07] MEDS ORDERED: ONDANSETRON 4 MG TAB.RAPDIS PO ONE (12:59)
[2017-04-07 13:44] LABS: APPEARANCE,URINE SLIGHTLY-CLOUDY; BILIRUBIN,URINE NEGATIVE (NEGATIVE); GLUCOSE, URINE NEGATIVE (NEGATIVE); KETONES,URINE NEGATIVE (NEGATIVE); LEUKOCYTE ESTERASE,URINE NEGATIVE (NEGATIVE); NITRITE,URINE NEGATIVE (NEGATIVE); PROTEIN,URINE NEGATIVE (NEGATIVE); URINE SPECIFIC GRAVITY 1.027; UROBILINOGEN,URINE NEGATIVE mg/dL (<2.0)
[2017-04-07 13:59] LABS: BACTERIA,URINE 2+ /HPF; RBC,URINE RARE /HPF; WBC,URINE RARE /HPF
--- NOTE | 2017-04-07 14:16 | RADIOLOGY REPORT (SQ) ---
EXAM DESCRIPTION: CHEST PA/LAT COMPLETED DATE/TIME: 04/07/2017 1:37 pm REASON FOR STUDY: r thoracic back pain COMPARISON: 06/09/2016 EXAM PARAMETERS: NUMBER OF VIEWS: two views TECHNIQUE: Digital Frontal and Lateral radiographic views of the chest acquired. RADIATION DOSE: NA LIMITATIONS: none FINDINGS: LUNGS AND PLEURA: No opacities, masses or pneumothorax. No pleural effusion. MEDIASTINUM AND HILAR STRUCTURES: No masses or contour abnormalities. HEART AND VASCULAR STRUCTURES: Heart normal size. No evidence for failure. BONES: No acute findings. HARDWARE: None in the chest. OTHER: No other significant finding. IMPRESSION: NO SIGNIFICANT RADIOGRAPHIC FINDING IN THE CHEST. TECHNICAL DOCUMENTATION: JOB ID: [id number] [employer]- All Rights Reserved
[2017-04-07 14:53] VITALS: BP 116/81
== END 2017-04-07 14:55 | disposition home or self-care (01) ==
LOC: ER 11:42
DX: M54.6 Pain in thoracic spine (principal); W01.0XXA Fall on same level from slipping, tripping and stumbling without subsequent striking against object, initial encounter; E78.00 Pure hypercholesterolemia, unspecified; Z86.73 Personal history of transient ischemic attack (TIA), and cerebral infarction without residual deficits; Z90.710 Acquired absence of both cervix and uterus
CPT/HCPCS: 99284; 81001; 71020; S0119

== ENCOUNTER 2017-05-25 10:10 | Emergency (ER) | payer OTHER ==
--- NOTE | 2017-05-25 10:33 | ER Document Report ---
ED Medical Screen (RME) - General Chief Complaint: Dizziness Stated Complaint: DIZZINESS Time Seen by Provider: 05/25/17 10:27 Mode of Arrival: Ambulatory Information source: Patient Notes: This is a 56-year-old female with a history of hypercalcemia and hyperparathyroidism who presents to the emergency room with a one-week history of dizziness, profound weakness. Patient does state she is experience some positional dizziness and vertigo this week. She does report having difficulty speaking words for several days. TRAVEL OUTSIDE OF THE [place] IN LAST 30 DAYS: No - Related Data Allergies/Adverse Reactions: No Known Allergies Allergy (Verified 05/25/17 10:10) Past Medical History - Social History Chew tobacco use (# tins/day): No Frequency of alcohol use: None Drug Abuse: None - Past Medical History Cardiac Medical History: Reports: Hx Hypercholesterolemia Denies: Hx Congestive Heart Failure, Hx Heart Attack, Hx Hypertension Pulmonary Medical History: Reports: Hx Bronchitis, Hx Pneumonia Denies: Hx Asthma, Hx COPD, Hx Tuberculosis Neurological Medical History: Reports: Hx Cerebrovascular Accident, Hx Migraine. Denies: Hx Seizures Renal/ Medical History: Reports: Hx Ectopic , Hx Ovarian Cysts. Denies: Hx End Stage Renal Disease, Hx Kidney Stones, Hx Peritoneal Dialysis GI Medical History: Denies: Hx Cirrhosis, Hx Gastroesophageal Reflux Disease, Hx Ulcer Musculoskeltal Medical History: Reports Hx Arthritis, Denies Hx Multiple Sclerosis Psychiatric Medical History: Reports: Hx Bipolar Disorder, Hx Depression - Medication free x 4 years Denies: Hx Schizophrenia Past Surgical History: Reports: Hx Gynecologic Surgery - ectopic, Hx Hysterectomy - Immunizations Hx Diphtheria, Pertussis, Tetanus Vaccination: No - unknown Physical Exam - Vital signs Vitals: Temp Pulse Resp BP Pulse Ox 98.3 F 94 18 140/81 H 95 05/25/17 10:16 05/25/17 10:16 05/25/17 10:16 05/25/17 10:16 05/25/17 10:16 Course - Vital Signs Vital signs: Temp Pulse Resp BP Pulse Ox 98.3 F 94 18 140/81 H 95 05/25/17 10:16 05/25/17 10:16 05/25/17 10:16 05/25/17 10:16 05/25/17 10:16
--- NOTE | 2017-05-25 11:05 | RADIOLOGY REPORT (SQ) ---
EXAM DESCRIPTION: CT HEAD WITHOUT COMPLETED DATE/TIME: 05/25/2017 10:54 am REASON FOR STUDY: dizziness COMPARISON: 08/04/2015 TECHNIQUE: Axial images acquired through the brain without intravenous contrast. Images reviewed wi th bone, brain and subdural windows. Images stored on PACS. All CT scanners at this facility use dose modulation, iterative reconstruction, and/or weight based d osing when appropriate to reduce radiation dose to as low as reasonably achievable (ALARA). [facility]: Dose Right [facility]: CareDose [facility]: Dose Right [facility]: Teradose 4D [facility]: Smart Contrib RADIATION DOSE: CT Rad equipment meets quality standard of care and radiation dose reduction techniq ues were employed. CTDIvol: 64.6 mGy. DLP: 1163 mGy-cm. mGy. LIMITATIONS: None. FINDINGS: VENTRICLES: Normal size and contour. CEREBRUM: No masses. No hemorrhage. No midline shift. No evidence for acute infarction. Normal gra y/white matter differentiation. No areas of low density in the white matter. CEREBELLUM: No masses. No hemorrhage. No alteration of density. No evidence for acute infarction. EXTRAAXIAL SPACES: No fluid collections. No masses. ORBITS AND GLOBE: No intra- or extraconal masses. Normal contour of globe without masses. CALVARIUM: No fracture. PARANASAL SINUSES: No fluid or mucosal thickening. SOFT TISSUES: No mass or hematoma. OTHER: No other significant finding. IMPRESSION: NO ACUTE INTRACRANIAL PROCESS. NO SIGNIFICANT CHANGE FROM PRIOR STUDY. EVIDENCE OF ACUTE STROKE: NO. COMMENT: Quality ID # [id number]: Final reports with documentation of one or more dose reduction techniques (e.g., Automated exposure control, adjustment of the mA and/or kV according to patient size, use of iterative reconstruction technique) TECHNICAL DOCUMENTATION: JOB ID: [id number] [employer]- All Rights Reserved
--- NOTE | 2017-05-25 11:06 | RADIOLOGY REPORT (SQ) ---
EXAM DESCRIPTION: CHEST PA/LAT COMPLETED DATE/TIME: 05/25/2017 10:59 am REASON FOR STUDY: weakness COMPARISON: 04/07/2017 EXAM PARAMETERS: NUMBER OF VIEWS: two views TECHNIQUE: Digital Frontal and Lateral radiographic views of the chest acquired. RADIATION DOSE: NA LIMITATIONS: none FINDINGS: LUNGS AND PLEURA: No opacities, masses or pneumothorax. No pleural effusion. MEDIASTINUM AND HILAR STRUCTURES: No masses or contour abnormalities. HEART AND VASCULAR STRUCTURES: Heart stable in size. No evidence for failure. BONES: No acute findings. HARDWARE: None in the chest. OTHER: No other significant finding. IMPRESSION: NO ACUTE CARDIOPULMONARY PROCESS. NO SIGNIFICANT CHANGE FROM PRIOR STUDY. TECHNICAL DOCUMENTATION: JOB ID: [id number] [employer]- All Rights Reserved
[2017-05-25 11:15] LABS: ABSOLUTE EOSINOPHILS # (AUTO) 0.1 10^3/uL (0.0-0.6); ABSOLUTE LYMPHOCYTES (AUTO) 2.6 10^3/uL (0.5-4.7); ABSOLUTE MONOCYTES (AUTO) 0.4 10^3/uL (0.1-1.4); ABSOLUTE NEUT (AUTO) 2.8 10^3/uL (1.7-8.2); BASOPHILS % (AUTO) 0.6 % (0-2); EOSINOPHILS % (AUTO) 2.2 % (0-6); HEMATOCRIT 40.4 % (36.0-47.0); HEMOGLOBIN 13.4 g/dL (12.0-15.5); LYMPHOCYTES % (AUTO) 44.2 % (13-45); MEAN CORPUSCULAR HEMOGLOBIN 27.9 pg (27.0-33.4); MEAN CORPUSCULAR VOLUME 85 fl (80-97); MONOCYTES % (AUTO) 6.3 % (3-13); PLATELET COUNT 235 10^3/uL (150-450); RED BLOOD COUNT 4.78 10^6/uL (3.72-5.28); RED CELL DISTRIBUTION WIDTH 12.8 % (11.5-14.0); SEGMENTED NEUTROPHILS % (AUTO) 46.7 % (42-78); TOTAL CELLS COUNTED % (AUTO) 100 %; WHITE BLOOD COUNT 5.9 10^3/uL (4.0-10.5)
[2017-05-25 11:30] LABS: ALANINE AMINOTRANSFERASE 28 U/L (9-52); ALBUMIN 4.4 g/dL (3.5-5.0); ALKALINE PHOSPHATASE 101 U/L (38-126); ANION GAP 11 (5-19); ASPARTATE AMINO TRANSFERASE 15 U/L (14-36); BILIRUBIN,DIRECT 0.3 mg/dL (0.0-0.4); BILIRUBIN,TOTAL 0.5 mg/dL (0.2-1.3); BLOOD UREA NITROGEN 18 mg/dL (7-20); CALCIUM 11.4 mg/dL (8.4-10.2); CARBON DIOXIDE 22 mmol/L (22-30); CHLORIDE 107 mmol/L (98-107); GLUCOSE 142 mg/dL (75-110); MAGNESIUM 1.7 mg/dL (1.6-2.3); POTASSIUM 4.4 mmol/L (3.6-5.0); SODIUM 140.2 mmol/L (137-145); TOTAL PROTEIN 7.6 g/dL (6.3-8.2)
[2017-05-25 11:33] LABS: PROTHROMBIN TIME 12.8 SEC (11.4-15.4)
[2017-05-25 11:37] LABS: APPEARANCE,URINE SLIGHTLY-CLOUDY; BILIRUBIN,URINE NEGATIVE (NEGATIVE); COLOR,URINE YELLOW; GLUCOSE, URINE NEGATIVE (NEGATIVE); KETONES,URINE NEGATIVE (NEGATIVE); LEUKOCYTE ESTERASE,URINE TRACE (NEGATIVE); NITRITE,URINE NEGATIVE (NEGATIVE); PROTEIN,URINE NEGATIVE (NEGATIVE); URINE SPECIFIC GRAVITY 1.028; UROBILINOGEN,URINE NEGATIVE mg/dL (<2.0)
--- NOTE | 2017-05-25 12:26 | ER Document Report ---
ED General - General Chief Complaint: Dizziness Stated Complaint: DIZZINESS Time Seen by Provider: 05/25/17 10:27 Mode of Arrival: Ambulatory TRAVEL OUTSIDE OF THE [place] IN LAST 30 DAYS: No - HPI Patient complains to provider of: Dizzy Onset: Other - 8 days Onset/Duration: Sudden Quality of pain: No pain Severity: Moderate Exacerbated by: Denies Relieved by: Denies Similar symptoms previously: No Recently seen / treated by doctor: No Notes: Patient states that for the last one half weeks she has had intermittent episodes where sheHas difficulty ambulating. She states she has knocked over clothes rack. No syncopal episodes. She states that she is off balance not the room is spinning. She also complains of blurred vision although she has not tested her eyes to see which eye Is blurry or if it is both.Denies any head trauma.She has not been ill lately.She states she also gets an intermittent ache in the back of her head like a headache is trying to form but does not fully formed.No history of migraines. - Related Data Allergies/Adverse Reactions: No Known Allergies Allergy (Verified 05/25/17 10:10) Past Medical History - General Information source: Patient, Relative - Social History Smoking Status: Never Smoker Chew tobacco use (# tins/day): No Smoking Education Provided: No Frequency of alcohol use: None Drug Abuse: None Lives with: Family Family History: Arthritis, CAD, CVA, DM, Hyperlipidemia, Hypertension, Malignancy Patient has suicidal ideation: No Patient has homicidal ideation: No - Medical History Notes: Patient states she has hyperparathyroidism and hypercalcemia - Past Medical History Cardiac Medical History: Reports: Hx Hypercholesterolemia Denies: Hx Congestive Heart Failure, Hx Heart Attack, Hx Hypertension Pulmonary Medical History: Reports: Hx Bronchitis, Hx Pneumonia Denies: Hx Asthma, Hx COPD, Hx Tuberculosis EENT Medical History: Reports: None Neurological Medical History: Reports: Hx Cerebrovascular Accident - 1998, Hx Migraine. Denies: Hx Seizures Renal/ Medical History: Reports: Hx Ectopic , Hx Ovarian Cysts. Denies: Hx End Stage Renal Disease, Hx Kidney Stones, Hx Peritoneal Dialysis Malignancy Medical History: Reports: None GI Medical History: Reports: None. Denies: Hx Cirrhosis, Hx Gastroesophageal Reflux Disease, Hx Ulcer Musculoskeltal Medical History: Reports Hx Arthritis, Denies Hx Multiple Sclerosis Psychiatric Medical History: Reports: Hx Bipolar Disorder, Hx Depression - Medication free x 4 years Denies: Hx Schizophrenia Past Surgical History: Reports: Hx Gynecologic Surgery - ectopic, Hx Hysterectomy - Immunizations Hx Diphtheria, Pertussis, Tetanus Vaccination: No - unknown History of Influenza Vaccine for 02/2017 - 07/2017 Season: Yes Review of Systems - Review of Systems Constitutional: No symptoms reported EENT: Blurred vision Cardiovascular: No symptoms reported Respiratory: No symptoms reported Gastrointestinal: No symptoms reported Genitourinary: No symptoms reported Female Genitourinary: No symptoms reported Musculoskeletal: No symptoms reported Skin: No symptoms reported Hematologic/Lymphatic: No symptoms reported Neurological/Psychological: Speech impairment - Patient states the last few days she has had episodes where she knows that she wants to say but has difficulty getting the words out Physical Exam - Vital signs Vitals: Temp Pulse Resp BP Pulse Ox 98.3 F 94 18 140/81 H 95 05/25/17 10:16 05/25/17 10:16 05/25/17 10:16 05/25/17 10:16 05/25/17 10:16 - Notes Notes: PHYSICAL EXAMINATION: GENERAL: Well-appearing, well-nourished and in no acute distress. Patient appears stated age. HEAD: Atraumatic, normocephalic. EYES: Pupils equal round and reactive to light, extraocular movements intact, conjunctiva are normal. No nystagmus. ENT: Nares patent, oropharynx clear without exudates. Moist mucous membranes. TMs within normal limits NECK: Normal range of motion, supple without lymphadenopathy. LUNGS: Breath sounds clear to auscultation bilaterally and equal. No wheezes rales or rhonchi. HEART: Regular rate and rhythm without murmurs ABDOMEN: Obese, soft, nontender, nondistended abdomen. No guarding, no rebound. No masses appreciated. Female : deferred Musculoskeletal: Normal range of motion, no pitting or edema. No cyanosis. NEUROLOGICAL: Cranial nerves grossly intact. Patient has pronator drift on the left mildly. Normal speech. Upon standing the patient does feel like she is going to fall backwards. She does have positive Romberg. Heel to lara Using the left leg is decreased. Normal sensory, motor exams. PSYCH: Normal mood, normal affect. SKIN: Warm, Dry, normal turgor, no rashes or lesions noted. - HEENT Visual acuity- Right eye: 20/30 Visual acuity- Left eye: 20/20 Visual acuity- Both eyes: 20/15 Corrective lenses worn: Yes Course - Re-evaluation Re-evalutation: 05/25/17 12:52 Patient's primary medical doctor is Dr. Butler at the [facility]. 05/25/17 14:10 I did ambulate the patient. She walks without assist. She did not require assist and her gait was steady. Her heel to lara is still off using her left foot.Pt. now states her last cva in 1998 left her in a wheelchair and through rehab, she walked again. 05/25/17 14:45 I did talk to Dr. Gonzalez. She is asking for MRI of the cervical spine without contrast prior to Disposition. 05/25/17 15:47 I did Call over to [facility] to talk to Dr. Krause who read the MRA of the neck. I ended up speaking To Dr. Nam reviewed the MRA of the neck and stated that there was no cervical impingement. She also states she looked at the CT of the C-spine done in 2015 with IV dye that did not show any impingement or bony abnormality 05/25/17 16:15 I did talk to admitting doctor, He felt patient did not meet admission criteria as she has had the symptoms for over 48 hours.I will discharge patient homeFor follow-up with outpatient neurologist. Patient and her are aware of this and are agreeable to plan. 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 05/25/17 16:21 - Vital Signs Vital signs: Temp Pulse Resp BP Pulse Ox 98.3 F 82 16 147/87 H 95 05/25/17 10:16 05/25/17 12:00 05/25/17 14:13 05/25/17 14:13 05/25/17 14:13 - Laboratory Result Diagrams: 05/25/17 10:45 05/25/17 10:45 Laboratory results interpreted by me: 05/25/17 05/25/17 10:45 10:45 Glucose 142 H Calcium 11.4 H Ur Leukocyte Esterase TRACE H - Diagnostic Test Radiology reviewed: Image reviewed, Reports reviewed Radiology results interpreted by me: 05/25/17 12:50 ct head No acute - EKG Interpretation by Me EKG shows normal: Sinus rhythm - 82 Rate: Normal When compared to previous EKG there are: No significant change Discharge - Discharge Clinical Impression: Ataxia, Hypercalcemia Condition: Stable Disposition: HOME, SELF-CARE Additional Instructions: Your balance was found to be slightly altered today. Please follow-up neurology as we discussed. Please also follow-up with your surgeon in [place] regarding your hyperparathyroidism and hypercalcemia. Return to the emergency department if you have worsening symptoms or any other concerns. Taken aspirin daily. Referrals: SLY HORNE MD [ACTIVE STAFF] - Follow up in 3-5 days (call in am for appointment)
--- NOTE | 2017-05-25 13:08 | RADIOLOGY REPORT (SQ) ---
EXAM DESCRIPTION: MRI HEAD WITHOUT COMPLETED DATE/TIME: 05/25/2017 12:49 pm REASON FOR STUDY: ataxia COMPARISON: None. TECHNIQUE: Multiplanar imaging includes non-contrasted T1, T2, FLAIR, and diffusion with ADC map seq uences. Images stored on PACS. LIMITATIONS: None. FINDINGS: ANATOMY: No anomalies. Normal vascular flow voids. Pituitary fossa normal. CSF SPACES: Normal in size and contour. No hemorrhage. CEREBRUM: Sulci and gyri normal in size and contour. Normal white matter signal on FLAIR imaging. No evidence of hemorrhage, mass, or extraaxial fluid collection. POSTERIOR FOSSA: No signal alteration. No hemorrhage. No edema, masses or mass effect. Internal joshua tory canals, cerebello-pontine angles, mastoids normal. DIFFUSION IMAGING: Negative for acute or sub-acute infarction. ORBITS: No masses. Globes normal. PARANASAL SINUSES: No fluid levels. Mucosa normal. OTHER: No other significant finding. IMPRESSION: NORMAL MRI OF THE BRAIN WITHOUT INTRAVENOUS GADOLINIUM CONTRAST. EVIDENCE OF ACUTE STROKE: NO. TECHNICAL DOCUMENTATION: JOB ID: [id number] [employer]- All Rights Reserved
--- NOTE | 2017-05-25 15:31 | RADIOLOGY REPORT (SQ) ---
EXAM DESCRIPTION: MRA NECK WITHOUT COMPLETED DATE/TIME: 05/25/2017 3:19 pm REASON FOR STUDY: ataxia COMPARISON: None. TECHNIQUE: Axial 2-D volume acquisition imaging through the extracranial carotid and vertebral arter ies with reformatting using 3-D MIPS. LIMITATIONS: None. FINDINGS: RIGHT CAROTID ARTERY: No stenosis or occlusive changes. Limited visualization of the orig in. LEFT CAROTID ARTERY: No stenosis or occlusive changes. Limited visualization of the origin. VERTEBRAL ARTERY: Dominant left vertebral artery. Very small right vertebral artery. The extracrani al portions of the vertebral basilar system are preserved without stenosis. No aneurysmal dilatation or dissection is seen. OTHER: No other significant finding. IMPRESSION: NO SIGNIFICANT STENOSIS. DOMINANT LEFT VERTEBRAL ARTERY. VERY SMALL RIGHT VERTEBRAL AR VIC. COMMENT: Quality ID #[id number]: Measurements of distal internal carotid diameter were used as the denomin ator for stenosis measurement. TECHNICAL DOCUMENTATION: JOB ID: [id number] [employer]- All Rights Reserved
[2017-05-25 17:15] VITALS: BP 131/82
--- NOTE | 2017-05-25 19:52 | EKG REPORT ---
SEVERITY:- NORMAL ECG - SINUS RHYTHM : Confirmed by: Troy Carver 25-May-2017 19:51:26
== END 2017-05-25 17:12 | disposition home or self-care (01) ==
LOC: ER 10:10
DX: R27.0 Ataxia, unspecified (principal); E83.52 Hypercalcemia; H53.8 Other visual disturbances; R47.89 Other speech disturbances; R51 Headache; Z82.3 Family history of stroke; Z86.73 Personal history of transient ischemic attack (TIA), and cerebral infarction without residual deficits
CPT/HCPCS: 36415; 70450; 70547; 70551; 71046; 80053; 81001; 83735; 85025; 85610; 93005; 93010; 99285

== ENCOUNTER 2017-07-23 11:49 | Emergency (ER) | payer OTHER ==
[2017-07-23] MEDS ORDERED: CLINDAMYCIN 600 MG/D5W RTU 600 MG/50 ML RTUPB IV ONE (12:23)
--- NOTE | 2017-07-23 12:24 | ER Document Report ---
ED General - General Chief Complaint: Breathing Difficulty Stated Complaint: DIFFICULTY BREATHING Time Seen by Provider: 07/23/17 12:22 Notes: The patient is a 56-year-old female, past medical history parathyroidectomy yesterday, presents with increased anterior neck swelling and feeling like she is having trouble breathing. Patient also having some redness over her her right upper chest below her surgical wound. She denies fevers, stridor, cough, throat swelling or chest pain. TRAVEL OUTSIDE OF THE [place] IN LAST 30 DAYS: No - Related Data Allergies/Adverse Reactions: No Known Allergies Allergy (Verified 05/25/17 10:10) Past Medical History - General Information source: Patient - Social History Smoking Status: Never Smoker Chew tobacco use (# tins/day): No Frequency of alcohol use: None Drug Abuse: None Family History: Arthritis, CAD, CVA, DM, Hyperlipidemia, Hypertension, Malignancy Patient has suicidal ideation: No Patient has homicidal ideation: No - Past Medical History Cardiac Medical History: Reports: Hx Hypercholesterolemia Denies: Hx Congestive Heart Failure, Hx Heart Attack, Hx Hypertension Pulmonary Medical History: Reports: Hx Bronchitis, Hx Pneumonia Denies: Hx Asthma, Hx COPD, Hx Tuberculosis Neurological Medical History: Reports: Hx Cerebrovascular Accident - 1998, Hx Migraine. Denies: Hx Seizures Renal/ Medical History: Reports: Hx Ectopic , Hx Ovarian Cysts. Denies: Hx End Stage Renal Disease, Hx Kidney Stones, Hx Peritoneal Dialysis GI Medical History: Denies: Hx Cirrhosis, Hx Gastroesophageal Reflux Disease, Hx Ulcer Musculoskeltal Medical History: Reports Hx Arthritis, Denies Hx Multiple Sclerosis Psychiatric Medical History: Reports: Hx Bipolar Disorder, Hx Depression - Medication free x 4 years Denies: Hx Schizophrenia Past Surgical History: Reports: Hx Gynecologic Surgery - ectopic, Hx Hysterectomy - Immunizations Hx Diphtheria, Pertussis, Tetanus Vaccination: No - unknown Review of Systems - Review of Systems Notes: REVIEW OF SYSTEMS: CONSTITUTIONAL: -fevers, -chills EENT: -eye pain, -difficulty swallowing, -nasal congestion CARDIOVASCULAR: -chest pain, -syncope. RESPIRATORY: -cough, +SOB GASTROINTESTINAL: -abdominal pain, -nausea, -vomiting, -diarrhea GENITOURINARY: -dysuria, -hematuria MUSCULOSKELETAL: -back pain, -neck pain SKIN: -rash or skin lesions. HEMATOLOGIC: -easy bruising or bleeding. LYMPHATIC: -swollen, enlarged glands. NEUROLOGICAL: -altered mental status or loss of consciousness, -headache, - neurologic symptoms PSYCHIATRIC: -anxiety, -depression. ALL OTHER SYSTEMS REVIEWED AND NEGATIVE. Physical Exam - Vital signs Vitals: Resp Pulse Ox 20 97 07/23/17 12:05 07/23/17 12:05 - Notes Notes: PHYSICAL EXAMINATION: GENERAL: Well-appearing, well-nourished and in no acute distress. HEAD: Atraumatic, normocephalic. EYES: Pupils equal round and reactive to light, extraocular movements intact, sclera anicteric, conjunctiva are normal. ENT: nares patent, oropharynx clear without exudates. Moist mucous membranes. NECK: Lower anterior neck surgical scar without discharge or swelling. No stridor. Normal range of motion, supple without lymphadenopathy LUNGS: Breath sounds clear to auscultation bilaterally and equal. No wheezes rales or rhonchi. No stridor or respiratory distress. HEART: Regular rate and rhythm without murmurs ABDOMEN: Soft, nontender, normoactive bowel sounds. No guarding, no rebound. No masses appreciated. EXTREMITIES: Normal range of motion, no pitting or edema. No cyanosis. NEUROLOGICAL: Cranial nerves grossly intact. Normal speech, normal gait. Normal sensory and motor exams. PSYCH: Normal mood, normal affect. SKIN: Mild redness and tenderness over anterior upper chest. Course - Re-evaluation Re-evalutation: 07/23/17 12:40 Pt's airway is intact. No stridor or breathing difficulties. Concern for hematoma with recent surgery and patient saying that she is feeling her throat tightening. There is also some redness below the surgical wound and may be some early cellulitis. 07/23/17 14:[address] scan shows expected postsurgical changes, but no discrete collection of fluid. Patient continued to be monitored in the emergency room without any expansion of her surgical wound and her airway remained intact. No abscess or hemtoma seen. With her redness below the wound, will send home with antibiotics for early cellulitis. Given very strict return precautions and she understands. - Vital Signs Vital signs: Temp Pulse Resp BP Pulse Ox 20 97 07/23/17 12:05 07/23/17 12:05 - Laboratory Result Diagrams: 07/23/17 12:10 07/23/17 12:10 Laboratory results interpreted by me: 07/23/17 07/23/17 12:10 12:10 WBC 10.8 H Hct 35.6 L Glucose 133 H - Diagnostic Test Radiology reviewed: Image reviewed, Reports reviewed Radiology results interpreted by me: CT Soft tissue: Presumed postsurgical changes related to a recent parathyroidectomy as noted above. There is is apparent soft tissue swelling and loss of the normal tissue planes at the level of the right thyroid lobe and loss of definition of the lower pole of the right thyroid lobe presumably postsurgical in nature. Free air is identified in the adjacent soft tissues presumably postsurgical in nature. There are edematous or inflammatory changes in the subcutaneous fat of the lower right neck presumably postsurgical in nature. No discrete fluid collections are identified. Clinical correlation is recommended. Other findings as noted above. Discharge - Discharge Clinical Impression: Cellulitis Qualifiers: Site of cellulitis: neck Qualified Code(s): L03.221 - Cellulitis of neck Condition: Stable Disposition: HOME, SELF-CARE Additional Instructions: CELLULITIS: You have an infection of your skin and underlying soft tissues called cellulitis. This is due to bacteria, which can enter through any break in the skin, or even through an irritated hair follicle. Untreated, cellulitis will usually worsen. Antibiotics are required. Usually, warm packs or warm soaks, and elevation of the infected area are recommended. You should start getting better within 24 to 36 hours. Most infections respond quickly to the right medication. Follow-up care is important, however, to check for abscess (boil) formation, unsuspected foreign body, or resistant infection. If you develop fever, chills, or if the area of infection is becoming rapidly more swollen or painful, call the doctor at once. ANTIBIOTIC THERAPY: You have been given an antibiotic prescription. It's important that you take all the medication, unless instructed otherwise by your physician. Failure to complete the entire course can result in relapse of your condition. Common side effects of antibiotics include nausea, intestinal cramping, or diarrhea. Women may develop vaginal yeast infections, and babies can get yeast (thrush) in the mouth following the use of antibiotics. Contact your physician if you develop significant side effects from this medication. Allergy to this antibiotic can result in hives, wheezing, faintness, or itching. If symptoms of allergy occur, stop the medication and call the doctor. CLINDAMYCIN: You have been given a prescription for the antibiotic clindamycin. It is often prescribed for infections in the mouth, such as dental infections or abscesses, and for skin infections due to MRSA. It's important that you take all the medication, unless instructed otherwise by your physician. Failure to complete the entire course can result in relapse of your condition. Common side effects of antibiotics include nausea, intestinal cramping, or diarrhea. Women may develop vaginal yeast infections, and babies can get yeast (thrush) in the mouth following the use of antibiotics. Contact your physician if you develop significant side effects from this medication. Allergy to this antibiotic can result in hives, wheezing, faintness, or itching. If symptoms of allergy occur, stop the medication and call the doctor. FOLLOW-UP CARE: If you have been referred to a physician for follow-up care, call the physician s office for an appointment as you were instructed or within the next two days. If you experience worsening or a significant change in your symptoms, notify the physician immediately or return to the Emergency Department at any time for re-evaluation. Prescriptions: Clindamycin HCl 300 mg PO Q8H 7 Days capsule Referrals: PETE SCHNEIDER MD [Primary Care Provider] - Follow up as needed MANPREET GORDON DO [ASSOCIATE] - Follow up as needed
[2017-07-23 12:37] LABS: ABSOLUTE LYMPHOCYTES (AUTO) 2.7 10^3/uL (0.5-4.7); ABSOLUTE MONOCYTES (AUTO) 0.9 10^3/uL (0.1-1.4); ABSOLUTE NEUT (AUTO) 7.1 10^3/uL (1.7-8.2); BASOPHILS % (AUTO) 0.2 % (0-2); EOSINOPHILS % (AUTO) 0.3 % (0-6); HEMATOCRIT 35.6 % (36.0-47.0); HEMOGLOBIN 12.2 g/dL (12.0-15.5); LYMPHOCYTES % (AUTO) 25.1 % (13-45); MEAN CORPUSCULAR HEMOGLOBIN 28.7 pg (27.0-33.4); MEAN CORPUSCULAR HGB CONC 34.2 g/dL (32.0-36.0); MEAN CORPUSCULAR VOLUME 84 fl (80-97); MONOCYTES % (AUTO) 8.5 % (3-13); PLATELET COUNT 214 10^3/uL (150-450); RED BLOOD COUNT 4.24 10^6/uL (3.72-5.28); RED CELL DISTRIBUTION WIDTH 13.4 % (11.5-14.0); SEGMENTED NEUTROPHILS % (AUTO) 65.9 % (42-78); TOTAL CELLS COUNTED % (AUTO) 100 %; WHITE BLOOD COUNT 10.8 10^3/uL (4.0-10.5)
[2017-07-23 12:51] LABS: ALANINE AMINOTRANSFERASE 23 U/L (9-52); ALBUMIN 4.1 g/dL (3.5-5.0); ALKALINE PHOSPHATASE 88 U/L (38-126); ANION GAP 11 (5-19); ASPARTATE AMINO TRANSFERASE 14 U/L (14-36); BILIRUBIN,DIRECT 0.4 mg/dL (0.0-0.4); BILIRUBIN,TOTAL 0.4 mg/dL (0.2-1.3); BLOOD UREA NITROGEN 14 mg/dL (7-20); CALCIUM 9.4 mg/dL (8.4-10.2); CARBON DIOXIDE 28 mmol/L (22-30); CHLORIDE 103 mmol/L (98-107); GLUCOSE 133 mg/dL (75-110); POTASSIUM 3.6 mmol/L (3.6-5.0); SODIUM 141.5 mmol/L (137-145)
[2017-07-23] MEDS ORDERED: HYDROCODONE/ACETAMINOPHEN 5-325 MG TABLET PO ONE (13:18)
--- NOTE | 2017-07-23 14:04 | RADIOLOGY REPORT (SQ) ---
EXAM DESCRIPTION: CT SOFT TISSUE NECK WITH COMPLETED DATE/TIME: 07/23/2017 1:11 pm REASON FOR STUDY: parathyroidectomy yesterday, redness, swelling COMPARISON: September 2015 TECHNIQUE: Post IV contrasted scanning from skull base through lung apices with review of bone, soft tissue and lung windows. Reconstructed coronal and sagittal MPR images reviewed. All images stored on PACS. All CT scanners at this facility use dose modulation, iterative reconstruction, and/or weight based d osing when appropriate to reduce radiation dose to as low as reasonably achievable (ALARA). [facility]: Dose Right [facility]: CareDose [facility]: Dose Right [facility]: Teradose 4D [facility]: [employer] CONTRAST TYPE AND DOSE: contrast/concentration: Isovue 370.00 mg/ml; Total Contrast Delivered: 75.0 ml; Total Saline Delivered: 55.0 ml RENAL FUNCTION: Creatinine 0.71 RADIATION DOSE: CT Rad equipment meets quality standard of care and radiation dose reduction techniq ues were employed. CTDIvol: 19.6 mGy. DLP: 607 mGy-cm. . LIMITATIONS: None. FINDINGS: SKULL BASE: Intact. MAJOR SALIVARY GLANDS: No solid or cystic masses. No inflammatory changes. LYMPHADENOPATHY: Scattered nonenlarged cervical lymph nodes are again identified. MUCOSAL MASSES OR ASYMMETRY: No mucosal masses or asymmetry. LARYNX/CORDS: No abnormal findings. VASCULAR STRUCTURES: The major vessels are patent. LUNG APICES: Clear. BONES: Intact. THYROID: Clinical history the patient is status post recent parathyroidectomy. There is apparent sof t tissue swelling and loss of the normal tissue planes at the level of the right thyroid lobe presuma jyotsna postsurgical in nature. There is loss of definition of the lower pole of the right thyroid lobe with apparent defects in the margin of the lower pole of the right thyroid lobe presumably postsurgic al in nature. Free air is identified in the adjacent soft tissues especially anteriorly presumably p ostsurgical in nature. No discrete fluid collection is identified. There are edematous or inflammat ory changes in the subcutaneous fat of the lower right neck presumably postsurgical in nature. PARANASAL SINUSES: Clear. OTHER: No other significant finding. IMPRESSION: Presumed postsurgical changes related to a recent parathyroidectomy as noted above. The re is is apparent soft tissue swelling and loss of the normal tissue planes at the level of the right thyroid lobe and loss of definition of the lower pole of the right thyroid lobe presumably postsurgi janel in nature. Free air is identified in the adjacent soft tissues presumably postsurgical in nature . There are edematous or inflammatory changes in the subcutaneous fat of the lower right neck presum ably postsurgical in nature. No discrete fluid collections are identified. Clinical correlation is recommended. Other findings as noted above TECHNICAL DOCUMENTATION: JOB ID: [id number] Quality ID # [id number]: Final reports with documentation of one or more dose reduction techniques (e.g., Au tomated exposure control, adjustment of the mA and/or kV according to patient size, use of iterative reconstruction technique) 2010 [employer]- All Rights Reserved Reading location - IP/workstation name: [email or web address]
[2017-07-23 14:38] VITALS: BP 112/68
== END 2017-07-23 14:47 | disposition home or self-care (01) ==
LOC: ER 11:49
DX: L03.221 Cellulitis of neck (principal); R06.02 Shortness of breath; E89.0 Postprocedural hypothyroidism
CPT/HCPCS: 36415; 70491; 80053; 85025; 87040; 96365; 99285

== ENCOUNTER 2017-08-21 06:10 | Emergency (ER) | payer OTHER ==
[2017-08-21 06:17] VITALS: BP 116/78
[2017-08-21] MEDS ORDERED: DEXAMETHASONE 4 MG TABLET PO ONE (07:15)
[2017-08-21] MEDS ORDERED: MAG HYDROX/AL HYDROX/SIMETH SUSP 30 ML UDCUP PO ONE (07:15)
[2017-08-21] MEDS ORDERED: METOCLOPRAMIDE HCL ORAL SOLN 10 MG/10 ML UDCUP PO ONE (07:15)
[2017-08-21] MEDS ORDERED: LIDOCAINE 2% VISCOUS SOLN 20 ML UDCUP PO ONE (07:15)
--- NOTE | 2017-08-21 07:40 | ER Document Report ---
ED General - General Chief Complaint: Sore Throat Stated Complaint: SORE THROAT,FEVER Time Seen by Provider: 08/21/17 06:34 TRAVEL OUTSIDE OF THE [place] IN LAST 30 DAYS: No - HPI Patient complains to provider of: Sore throat subjective fever Notes: Patient coming in for evaluation of sore throat and fever. Patient states symptoms ongoing for the past 2448 hrs. Patient also states she is having sinus drainage. Patient denies any Chills nausea vomitingdiarrhea denies any sick contacts recent antibiotics or recent travel. Patient resting comfortably upon my evaluation. - Related Data Allergies/Adverse Reactions: No Known Allergies Allergy (Verified 05/25/17 10:10) Past Medical History - Social History Smoking Status: Never Smoker Chew tobacco use (# tins/day): No Frequency of alcohol use: None Drug Abuse: None Family History: Arthritis, CAD, CVA, DM, Hyperlipidemia, Hypertension, Malignancy Patient has suicidal ideation: No Patient has homicidal ideation: No - Past Medical History Cardiac Medical History: Reports: Hx Hypercholesterolemia Denies: Hx Congestive Heart Failure, Hx Heart Attack, Hx Hypertension Pulmonary Medical History: Reports: Hx Bronchitis, Hx Pneumonia Denies: Hx Asthma, Hx COPD, Hx Tuberculosis Neurological Medical History: Reports: Hx Cerebrovascular Accident - 1998, Hx Migraine. Denies: Hx Seizures Renal/ Medical History: Reports: Hx Ectopic , Hx Ovarian Cysts. Denies: Hx End Stage Renal Disease, Hx Kidney Stones, Hx Peritoneal Dialysis GI Medical History: Denies: Hx Cirrhosis, Hx Gastroesophageal Reflux Disease, Hx Ulcer Musculoskeltal Medical History: Reports Hx Arthritis, Denies Hx Multiple Sclerosis Psychiatric Medical History: Reports: Hx Bipolar Disorder, Hx Depression - Medication free x 4 years Denies: Hx Schizophrenia Past Surgical History: Reports: Hx Gynecologic Surgery - ectopic, Hx Hysterectomy, 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 - Immunizations Hx Diphtheria, Pertussis, Tetanus Vaccination: No - unknown Review of Systems - Review of Systems Constitutional: No symptoms reported EENT: Throat pain Cardiovascular: No symptoms reported Respiratory: No symptoms reported Gastrointestinal: No symptoms reported Genitourinary: No symptoms reported Female Genitourinary: No symptoms reported Musculoskeletal: No symptoms reported Skin: No symptoms reported Hematologic/Lymphatic: No symptoms reported Neurological/Psychological: No symptoms reported -: Yes All other systems reviewed and negative Physical Exam - Vital signs Vitals: Temp Pulse Resp BP Pulse Ox 98.0 F 108 H 20 116/78 94 08/21/17 06:15 08/21/17 06:15 08/21/17 06:15 08/21/17 06:15 08/21/17 06:15 Interpretation: Normal - General General appearance: Appears well, Alert - HEENT Head: Normocephalic, Atraumatic Eyes: Normal Conjunctiva: Normal Cornea: Normal Pupils: PERRL Anterior chamber: Normal Fundascopic: Normal Ears: Normal External canal: Normal Tympanic membrane: Normal Sinus: Normal Nasal: Normal Mouth/Lips: Normal Mucous membranes: Normal Pharynx: Post nasal drainage Neck: Normal - Respiratory Respiratory status: No respiratory distress Chest status: Nontender Breath sounds: Normal Chest palpation: Normal - Cardiovascular Rhythm: Regular Heart sounds: Normal auscultation Murmur: No - Abdominal Inspection: Normal Distension: No distension Bowel sounds: Normal Tenderness: Nontender Organomegaly: No organomegaly - Back Back: Normal, Nontender - Extremities General upper extremity: Normal inspection, Nontender, Normal color, Normal ROM , Normal temperature General lower extremity: Normal inspection, Nontender, Normal color, Normal ROM , Normal temperature, Normal weight bearing. No: Mohini's sign - Neurological Neuro grossly intact: Yes Cognition: Normal Orientation: AAOx4 Susan Coma Scale Eye Opening: Spontaneous [place] Coma Scale Verbal: Oriented [place] Coma Scale Motor: Obeys Commands Susan Coma Scale Total: 15 Speech: Normal Motor strength normal: LUE, RUE, LLE, RLE Sensory: Normal - Psychological Associated symptoms: Normal affect, Normal mood - Skin Skin Temperature: Warm Skin Moisture: Dry Skin Color: Normal Course - Re-evaluation Re-evalutation: 08/21/17 13:27 Patient with postnasal drip more likely viral etiology symptoms could be allergic as well. Patient was encouraged to take an hesq-ply-oxpfcvl antihistamine patient was given Magic mouthwash for her symptoms patient was encouraged to drink plenty fluids. no Critical etiology seen for symptoms will be discharged home 08/21/17 13:28 - Vital Signs Vital signs: Temp Pulse Resp BP Pulse Ox 98.0 F 108 H 20 116/78 94 08/21/17 06:15 08/21/17 06:15 08/21/17 06:15 08/21/17 06:15 08/21/17 06:15 Discharge - Discharge Clinical Impression: Sore throat (viral) Condition: Good Disposition: HOME, SELF-CARE Instructions: Sore Throat ([facility]), Viral Syndrome ([facility]) Additional Instructions: Your evaluation today is consistent with a viral illness. Your strep swab returned negative for any signs of strep infection. Recommend continue to take Tylenol Motrin for pain control. He may also use the Magic mouthwash as prescribed to aid in throat pain. Return to ER symptoms worsen follow-up with your primary care physician. Prescriptions: Nystatin/Dexameth/Diphen [Magic Mouthwash ([facility] Formula) Susp] 5 ml PO QID #120 ml Referrals: PETE SCHNEIDER MD [Primary Care Provider] - Follow up in 1 week
== END 2017-08-21 07:53 | disposition home or self-care (01) ==
LOC: ER 06:10
DX: J02.9 Acute pharyngitis, unspecified (principal); R50.9 Fever, unspecified; E78.00 Pure hypercholesterolemia, unspecified; Z90.710 Acquired absence of both cervix and uterus
CPT/HCPCS: 99283; 87070; 87880; J3490

== ENCOUNTER 2017-08-24 07:42 | Emergency (ER) | payer OTHER ==
[2017-08-24] MEDS ORDERED: MAG HYDROX/AL HYDROX/SIMETH SUSP 30 ML UDCUP PO ONE (08:37)
[2017-08-24] MEDS ORDERED: LIDOCAINE 2% VISCOUS SOLN 20 ML UDCUP PO ONE (08:37)
--- NOTE | 2017-08-24 08:37 | RADIOLOGY REPORT (SQ) ---
EXAM DESCRIPTION: CHEST 2 VIEWS COMPLETED DATE/TIME: 08/24/2017 8:28 am REASON FOR STUDY: cough, congestion, sob COMPARISON: 05/25/2017 EXAM PARAMETERS: NUMBER OF VIEWS: two views TECHNIQUE: Digital Frontal and Lateral radiographic views of the chest acquired. RADIATION DOSE: NA LIMITATIONS: none FINDINGS: LUNGS AND PLEURA: There is a left hilar airspace opacity best seen on the lateral view MEDIASTINUM AND HILAR STRUCTURES: Possible left hilar adenopathy. HEART AND VASCULAR STRUCTURES: Heart stable size. No evidence for failure. BONES: No acute findings. HARDWARE: None in the chest. OTHER: No other significant finding. IMPRESSION: LEFT HILAR AIRSPACE OPACITY WITH POSSIBLE LEFT HILAR ADENOPATHY. FINDINGS COULD BE SECO NDARY TO PNEUMONIA HOWEVER RECOMMEND CT CHEST TO EXCLUDE UNDERLYING NEOPLASM. TECHNICAL DOCUMENTATION: JOB ID: [id number] [employer]- All Rights Reserved Reading location - IP/workstation name: [email or web address]
--- NOTE | 2017-08-24 09:23 | ER Document Report ---
ED Flu Like - General Chief Complaint: Flu Symptoms Stated Complaint: FLU SYMPTOMS Time Seen by Provider: 08/24/17 08:01 Mode of Arrival: Ambulatory Information source: Patient Notes: Patient is a 56-year-old female who presents to the ER today for 1 week of productive cough, congestion, sore throat. Patient was evaluated here a few days ago and given Magic mouthwash in the ER which helped tremendously but then prescribed Magic mouthwash to take home that did not help at all. 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 Patient has been taking rjyk-wnc-egnwcnk cough and cold medication without improvement. She denies any history of COPD, asthma or any other lung illnesses. She admits to fever and chills but has not taken her temperature. TRAVEL OUTSIDE OF THE [place] IN LAST 30 DAYS: No - Related Data Allergies/Adverse Reactions: No Known Allergies Allergy (Verified 05/25/17 10:10) Past Medical History - General Information source: Patient - Social History Smoking Status: Never Smoker Family History: Arthritis, CAD, CVA, DM, Hyperlipidemia, Hypertension, Malignancy - Past Medical History Cardiac Medical History: Reports: Hx Hypercholesterolemia Denies: Hx Congestive Heart Failure, Hx Heart Attack, Hx Hypertension Pulmonary Medical History: Reports: Hx Bronchitis, Hx Pneumonia Denies: Hx Asthma, Hx COPD, Hx Tuberculosis Neurological Medical History: Reports: Hx Cerebrovascular Accident - 1998, Hx Migraine. Denies: Hx Seizures Renal/ Medical History: Reports: Hx Ectopic , Hx Ovarian Cysts. Denies: Hx End Stage Renal Disease, Hx Kidney Stones, Hx Peritoneal Dialysis GI Medical History: Denies: Hx Cirrhosis, Hx Gastroesophageal Reflux Disease, Hx Ulcer Musculoskeltal Medical History: Reports Hx Arthritis, Denies Hx Multiple Sclerosis Psychiatric Medical History: Reports: Hx Bipolar Disorder, Hx Depression - Medication free x 4 years Denies: Hx Schizophrenia Past Surgical History: Reports: Hx Gynecologic Surgery - ectopic, Hx Hysterectomy, 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 - Immunizations Hx Diphtheria, Pertussis, Tetanus Vaccination: No - unknown Review of Systems - Review of Systems Constitutional: See HPI EENT: See HPI Cardiovascular: No symptoms reported Respiratory: See HPI Gastrointestinal: No symptoms reported Genitourinary: No symptoms reported Female Genitourinary: No symptoms reported Musculoskeletal: No symptoms reported Skin: No symptoms reported Hematologic/Lymphatic: No symptoms reported Neurological/Psychological: No symptoms reported Physical Exam - Vital signs Vitals: Temp Pulse Resp BP Pulse Ox 98.5 F 92 18 139/78 H 95 08/24/17 07:46 08/24/17 07:46 08/24/17 07:46 08/24/17 07:46 08/24/17 07:46 - Notes Notes: PHYSICAL EXAMINATION: GENERAL: Mildly ill-appearing, but in no acute distress. HEAD: Atraumatic, normocephalic. EYES: Pupils equal round and reactive to light, extraocular movements intact, sclera anicteric, conjunctiva are normal. ENT: ear canals without erythema or foreign body, TMs pearly rice with good bony landmarks, nares patent, oropharynx erythematous without enlarged tonsils without exudates. Moist mucous membranes. NECK: Normal range of motion, supple without lymphadenopathy LUNGS: Productive cough, rhonchi bilateral lower lobes, no wheezes rales HEART: Regular rate and rhythm without murmurs ABDOMEN: Soft, no tenderness. No guarding, no rebound BACK: no vertebral tenderness, normal ROM GI/: no CVA tenderness EXTREMITIES: Normal range of motion, no pitting edema. No cyanosis. NEUROLOGICAL: Cranial nerves grossly intact. Normal sensory/motor exams. PSYCH: Normal mood, normal affect. SKIN: Warm, Dry, normal turgor, no rashes or lesions noted Course - Re-evaluation Re-evalutation: 08/24/17 10:54 Patient has left hilar pneumonia on chest x-ray, strep negative, patient was sent home with Magic mouthwash prescription before with nystatin, Benadryl, dexamethasone and it but with no lidocaine. This is why it did not help patients sore throat. I will send her home with Magic mouthwash with lidocaine and it which she again received today in the ER and help tremendously. Patient also started on Augmentin, given Medrol Dosepak and cough medication. Patient very grateful for care today. Vital signs are all within normal limits, respiratory rate normal, pulse ox of 95% on room air. Patient with no wheezing or shortness of breath today. 08/24/17 10:55 - Vital Signs Vital signs: Temp Pulse Resp BP Pulse Ox 97.9 F 88 20 129/76 H 93 08/24/17 09:39 08/24/17 09:39 08/24/17 09:39 08/24/17 09:39 08/24/17 09:39 Discharge - Discharge Clinical Impression: Pneumonia Qualifiers: Pneumonia type: due to unspecified organism Laterality: left Lung location: upper lobe of lung Qualified Code(s): J18.1 - Lobar pneumonia, unspecified organism Condition: Stable Disposition: HOME, SELF-CARE Additional Instructions: Return immediately for any new or worsening symptoms. Follow up with primary care provider, call tomorrow to make followup appointment. Prescriptions: Hydrocodone Bit/Homatropine [Hycodan Syrup 5-1.5 mg/5 ml Ud Cup] 5 ml PO Q4HP PRN #120 ml PRN Reason: Amox Tr/Potassium Clavulanate [Augmentin 875-125 Tablet] 1 tab PO BID 10 Days tablet Methylprednisolone [Medrol Dosepack (4 mg/Tab) 21 Tab/Dosepak] 4 mg PO ASDIR PRN #21 tab.ds.pk PRN Reason: Nystatin/Dexameth/Diphen [Magic Mouthwash ([facility] Formula) Susp] 5 ml PO QID #120 ml Referrals: PETE SCHNEIDER MD [Primary Care Provider] - Follow up as needed
[2017-08-24 09:41] VITALS: BP 129/76
== END 2017-08-24 09:43 | disposition home or self-care (01) ==
LOC: ER 07:42
DX: J18.1 Lobar pneumonia, unspecified organism (principal); R05 Cough; J02.9 Acute pharyngitis, unspecified; Z87.01 Personal history of pneumonia (recurrent)
CPT/HCPCS: 99284; 87070; 87880; 71046; J3490

== ENCOUNTER → 2017-10-06 | Outpatient (CLI) | payer OTHER ==
--- NOTE | 2017-10-06 16:01 | RADIOLOGY REPORT (SQ) ---
EXAM DESCRIPTION: CT HEAD WITH COMPLETED DATE/TIME: 10/06/2017 3:01 pm REASON FOR STUDY: HEMIPLEGIA, ABNORMALITIES OF GAIT AND MOBILITY G81.92 HEMIPLEGIA, UNSPECIFIED AFF ECTING LEFT DOMINANT SIDE COMPARISON: CT and MRI dated 05/25/2017. TECHNIQUE: Axial images acquired through the brain with intravenous contrast. Images reviewed with b one, brain and subdural windows. Additional sagittal and coronal reconstructions were generated. Sheri ges stored on PACS. All CT scanners at this facility use dose modulation, iterative reconstruction, and/or weight based d osing when appropriate to reduce radiation dose to as low as reasonably achievable (ALARA). [facility]: Dose Right [facility]: CareDose [facility]: Dose Right [facility]: Teradose 4D [facility]: Lamsa CONTRAST TYPE AND DOSE: contrast/concentration: Isovue 370.00 mg/ml; Total Contrast Delivered: 50.0 ml; Total Saline Delivered: 55.0 ml RENAL FUNCTION: Creatinine 0.8. RADIATION DOSE: CT Rad equipment meets quality standard of care and radiation dose reduction techniq ues were employed. CTDIvol: 48.6 mGy. DLP: 954 mGy-cm.. LIMITATIONS: None. FINDINGS: VENTRICLES: Normal size and contour. CEREBRUM: No masses. No hemorrhage. No midline shift. Normal cortes/white matter differentiation. No ev idence for acute infarction. No enhancing lesions. CEREBELLUM: No masses. No hemorrhage. No alteration of density. No evidence for acute infarction. No enhancing lesions. EXTRA-AXIAL SPACES: No fluid collections. No enhancing lesions. ORBITS AND GLOBE: No intra- or extraconal masses. Normal contour of globe without masses. CALVARIUM: No fracture. PARANASAL SINUSES: No fluid or mucosal thickening. SOFT TISSUES: No mass or hematoma. OTHER: No other significant finding. IMPRESSION: NORMAL BRAIN CT WITH CONTRAST. EVIDENCE OF ACUTE STROKE: NO. TECHNICAL DOCUMENTATION: JOB ID: [id number] Quality ID # [id number]: Final reports with documentation of one or more dose reduction techniques (e.g., Au tomated exposure control, adjustment of the mA and/or kV according to patient size, use of iterative reconstruction technique) 2010 [employer]- All Rights Reserved Reading location - IP/workstation name: [email or web address]
== END ==
LOC: RAD 13:58
PROVIDERS: ATTEND Internal Medicine
DX: G81.92 Hemiplegia, unspecified affecting left dominant side (principal); R26.89 Other abnormalities of gait and mobility
CPT/HCPCS: 70460; 82565

== ENCOUNTER → 2017-11-10 | Outpatient (CLI) | payer OTHER ==
--- NOTE | 2017-11-10 15:53 | RADIOLOGY REPORT (SQ) ---
EXAM DESCRIPTION: KNEE LEFT 4 VIEW COMPLETED DATE/TIME: 11/10/2017 3:37 pm REASON FOR STUDY: M25.569 PAIN IN UNSPECIFIED KNEE M25.569 PAIN IN UNSPECIFIED KNEE COMPARISON: None. NUMBER OF VIEWS: Four views. TECHNIQUE: AP, lateral, and both oblique radiographic images acquired of the left knee. LIMITATIONS: None. FINDINGS: MINERALIZATION: Normal. BONES: No acute fracture or dislocation. No worrisome bone lesions. JOINT: There is an mild narrowing the medial compartment with marginal osteophytes. Very small poste rior patellar osteophytes are present. There is no significant joint effusion. SOFT TISSUES: No soft tissue swelling. No radio-opaque foreign body. OTHER: No other significant finding. IMPRESSION: Degenerative joint disease as described. TECHNICAL DOCUMENTATION: JOB ID: [id number] [employer]- All Rights Reserved Reading location - IP/workstation name: [email or web address]
--- NOTE | 2017-11-10 15:54 | RADIOLOGY REPORT (SQ) ---
EXAM DESCRIPTION: KNEE RIGHT 4 VIEWS COMPLETED DATE/TIME: 11/10/2017 3:37 pm REASON FOR STUDY: M25.569 PAIN IN UNSPECIFIED KNEE M25.569 PAIN IN UNSPECIFIED KNEE COMPARISON: 12/24/2016 NUMBER OF VIEWS: Four views. TECHNIQUE: AP, lateral, and both oblique radiographic images acquired of the right knee. LIMITATIONS: None. FINDINGS: MINERALIZATION: Normal. BONES: No acute fracture or dislocation. No worrisome bone lesions. JOINT: There is mild narrowing of the medial compartment with small marginal osteophytes. No joint e ffusion. SOFT TISSUES: No soft tissue swelling. No radio-opaque foreign body. OTHER: No other significant finding. IMPRESSION: Mild degenerative joint changes in the medial compartment. TECHNICAL DOCUMENTATION: JOB ID: [id number] [employer]- All Rights Reserved Reading location - IP/workstation name: [email or web address]
== END ==
LOC: RAD 15:14
DX: M25.562 Pain in left knee (principal); M25.561 Pain in right knee; M17.0 Bilateral primary osteoarthritis of knee

== ENCOUNTER → 2017-11-10 | Outpatient (CLI) | payer OTHER ==
[2017-11-10 18:52] LABS: ALANINE AMINOTRANSFERASE 18 U/L (9-52); ALBUMIN 4.1 g/dL (3.5-5.0); ALKALINE PHOSPHATASE 83 U/L (38-126); ANION GAP 10 (5-19); ASPARTATE AMINO TRANSFERASE 17 U/L (14-36); BILIRUBIN,DIRECT 0.3 mg/dL (0.0-0.4); BILIRUBIN,TOTAL 0.3 mg/dL (0.2-1.3); BLOOD UREA NITROGEN 19 mg/dL (7-20); CALCIUM 9.5 mg/dL (8.4-10.2); CARBON DIOXIDE 29 mmol/L (22-30); CHLORIDE 104 mmol/L (98-107); GLUCOSE 111 mg/dL (75-110); PHOSPHORUS 3.9 mg/dL (2.5-4.5); SODIUM 142.9 mmol/L (137-145); TOTAL PROTEIN 7.4 g/dL (6.3-8.2)
== END ==
LOC: CCC 17:49
DX: Z86.39 Personal history of other endocrine, nutritional and metabolic disease (principal); Z98.890 Other specified postprocedural states
CPT/HCPCS: 36415; 80048; 80076; 82306; 83735; 83970; 84100; 84443

== ENCOUNTER 2017-11-21 09:19 | Emergency (ER) | payer OTHER ==
[2017-11-21] MEDS ORDERED: NORMAL SALINE 1000 ML 1,000 ML IV ONE (09:36)
[2017-11-21] MEDS ORDERED: MECLIZINE HCL 25 MG TABLET PO ONE (09:36)
--- NOTE | 2017-11-21 09:38 | ER Document Report ---
ED Medical Screen (RME) - General Chief Complaint: Dizziness Stated Complaint: DIZZINESS Time Seen by Provider: 11/21/17 09:24 Mode of Arrival: Ambulatory Information source: Patient TRAVEL OUTSIDE OF THE [place] IN LAST 30 DAYS: No - HPI Patient complains to provider of: Dizziness, nausea, headache Notes: 11/21/17 09:37 Patient is a 56-year-old female presenting to the emergency room today complaining of episodes of dizziness with the sensation of the room spinning, associated with nausea and a posterior headache, symptoms have been going on for the past 2 days, she took some meclizine yesterday which made her very sleepy, and was recently told by her route sales trainee that her A1c is high and she is a diabetic and should follow-up with her primary care provider for medication, she sees an route sales trainee secondary to parathyroidectomy - Related Data Allergies/Adverse Reactions: No Known Allergies Allergy (Verified 05/25/17 10:10) Past Medical History - Social History Chew tobacco use (# tins/day): No Frequency of alcohol use: None Drug Abuse: None - Past Medical History Cardiac Medical History: Reports: Hx Hypercholesterolemia Denies: Hx Congestive Heart Failure, Hx Heart Attack, Hx Hypertension Pulmonary Medical History: Reports: Hx Bronchitis, Hx Pneumonia Denies: Hx Asthma, Hx COPD, Hx Tuberculosis Neurological Medical History: Reports: Hx Cerebrovascular Accident - 1998, Hx Migraine. Denies: Hx Seizures Renal/ Medical History: Reports: Hx Ectopic , Hx Ovarian Cysts. Denies: Hx End Stage Renal Disease, Hx Kidney Stones, Hx Peritoneal Dialysis GI Medical History: Denies: Hx Cirrhosis, Hx Gastroesophageal Reflux Disease, Hx Ulcer Musculoskeltal Medical History: Reports Hx Arthritis, Denies Hx Multiple Sclerosis Psychiatric Medical History: Reports: Hx Bipolar Disorder, Hx Depression - Medication free x 4 years Denies: Hx Schizophrenia Past Surgical History: Reports: Hx Gynecologic Surgery - ectopic, Hx Hysterectomy, 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 - Immunizations Hx Diphtheria, Pertussis, Tetanus Vaccination: No - unknown History of Influenza Vaccine for 02/2017 - 07/2017 Season: Yes Physical Exam - Vital signs Vitals: Temp Pulse Resp BP Pulse Ox 98.7 F 80 20 136/84 H 94 11/21/17 09:23 11/21/17 09:23 11/21/17 09:23 11/21/17 09:23 11/21/17 09:23 Course - Vital Signs Vital signs: Temp Pulse Resp BP Pulse Ox 98.7 F 80 20 136/84 H 94 11/21/17 09:23 11/21/17 09:23 11/21/17 09:23 11/21/17 09:23 11/21/17 09:23 Doctor's Discharge - Discharge Referrals: [facility] [[facility]] - Follow up as needed
[2017-11-21 10:28] LABS: ABSOLUTE EOSINOPHILS # (AUTO) 0.1 10^3/uL (0.0-0.6); ABSOLUTE LYMPHOCYTES (AUTO) 2.3 10^3/uL (0.5-4.7); ABSOLUTE MONOCYTES (AUTO) 0.3 10^3/uL (0.1-1.4); ABSOLUTE NEUT (AUTO) 2.8 10^3/uL (1.7-8.2); BASOPHILS % (AUTO) 0.6 % (0-2); EOSINOPHILS % (AUTO) 2.1 % (0-6); HEMATOCRIT 41.2 % (36.0-47.0); HEMOGLOBIN 13.8 g/dL (12.0-15.5); LYMPHOCYTES % (AUTO) 41.4 % (13-45); MEAN CORPUSCULAR HEMOGLOBIN 27.7 pg (27.0-33.4); MEAN CORPUSCULAR HGB CONC 33.4 g/dL (32.0-36.0); MEAN CORPUSCULAR VOLUME 83 fl (80-97); PLATELET COUNT 227 10^3/uL (150-450); RED BLOOD COUNT 4.97 10^6/uL (3.72-5.28); RED CELL DISTRIBUTION WIDTH 14.2 % (11.5-14.0); SEGMENTED NEUTROPHILS % (AUTO) 49.9 % (42-78); TOTAL CELLS COUNTED % (AUTO) 100 %; WHITE BLOOD COUNT 5.6 10^3/uL (4.0-10.5)
[2017-11-21 10:36] LABS: APPEARANCE,URINE CLEAR; BILIRUBIN,URINE NEGATIVE (NEGATIVE); COLOR,URINE YELLOW; GLUCOSE, URINE NEGATIVE (NEGATIVE); KETONES,URINE NEGATIVE (NEGATIVE); LEUKOCYTE ESTERASE,URINE NEGATIVE (NEGATIVE); NITRITE,URINE NEGATIVE (NEGATIVE); PROTEIN,URINE NEGATIVE (NEGATIVE); URINE SPECIFIC GRAVITY 1.026; UROBILINOGEN,URINE NEGATIVE mg/dL (<2.0)
[2017-11-21 10:46] LABS: ALANINE AMINOTRANSFERASE 16 U/L (9-52); ALBUMIN 4.7 g/dL (3.5-5.0); ALKALINE PHOSPHATASE 91 U/L (38-126); ANION GAP 13 (5-19); ASPARTATE AMINO TRANSFERASE 24 U/L (14-36); BILIRUBIN,DIRECT 0.3 mg/dL (0.0-0.4); BILIRUBIN,TOTAL 0.5 mg/dL (0.2-1.3); BLOOD UREA NITROGEN 20 mg/dL (7-20); CALCIUM 9.5 mg/dL (8.4-10.2); CARBON DIOXIDE 29 mmol/L (22-30); CHLORIDE 103 mmol/L (98-107); GLUCOSE 124 mg/dL (75-110); POTASSIUM 4.1 mmol/L (3.6-5.0); SODIUM 144.5 mmol/L (137-145); TOTAL PROTEIN 8.6 g/dL (6.3-8.2)
--- NOTE | 2017-11-21 10:53 | RADIOLOGY REPORT (SQ) ---
EXAM DESCRIPTION: CT HEAD WITHOUT COMPLETED DATE/TIME: 11/21/2017 10:26 am REASON FOR STUDY: dizzy, marks COMPARISON: CT head 10/06/2017, MRI head 05/25/2017. TECHNIQUE: Axial images acquired through the brain without intravenous contrast. Images reviewed wi th bone, brain and subdural windows. Images stored on PACS. All CT scanners at this facility use dose modulation, iterative reconstruction, and/or weight based d osing when appropriate to reduce radiation dose to as low as reasonably achievable (ALARA). [facility]: Dose Right [facility]: CareDose [facility]: Dose Right [facility]: Teradose 4D [facility]: Smart Telx RADIATION DOSE: CT Rad equipment meets quality standard of care and radiation dose reduction techniq ues were employed. CTDIvol: 53.2 mGy. DLP: 1124 mGy-cm. mGy. LIMITATIONS: None. FINDINGS: VENTRICLES: Normal size and contour. CEREBRUM: No mass effect. No hemorrhage. No midline shift. Normal cortes/white matter differentiatio n. No evidence for acute territorial infarction. CEREBELLUM: No mass effect. No hemorrhage. No alteration of density. No evidence for acute infarct ion. EXTRAAXIAL SPACES: No fluid collections. ORBITS AND GLOBE: Symmetrical contour of the globes. CALVARIUM: No depressed skull fracture. PARANASAL SINUSES: No air-fluid level. SOFT TISSUES: No hematoma. IMPRESSION: NO ACUTE INTRACRANIAL IMAGING FINDINGS. EVIDENCE OF ACUTE STROKE: NO. COMMENT: Quality ID # 436: Final reports with documentation of one or more dose reduction techniques (e.g., Automated exposure control, adjustment of the mA and/or kV according to patient size, use of iterative reconstruction technique) TECHNICAL DOCUMENTATION: JOB ID: [id number]-64 2010 [employer]- All Rights Reserved Reading location - IP/workstation name: [facility]
[2017-11-21 11:02] LABS: FREE T3 4.01 pg/mL (2.77-5.27); FREE T4 (FREE THYROXINE) 1.1 ng/dL (0.78-2.19)
[2017-11-21 11:16] LABS: THYROID STIMULATING HORMONE 0.66 uIU/mL (0.47-4.68)
--- NOTE | 2017-11-21 17:05 | RADIOLOGY REPORT (SQ) ---
EXAM DESCRIPTION: MRI HEAD WITHOUT; MRA HEAD WITHOUT COMPLETED DATE/TIME: 11/21/2017 4:26 pm REASON FOR STUDY: posterior headache as well as dizziness COMPARISON: CT brain 05/25/2017, 10/06/2017, 11/21/2017 MRI brain 05/25/2017 TECHNIQUE: Multiplanar imaging includes non-contrasted T1, T2, FLAIR, and diffusion with ADC map seq uences. Images stored on PACS. [place] MRA exam was performed, using 3D osde-lh-nhnprz acquisition. Images reviewed and so urce data and maximum intensity projections. Images saved to pacs. LIMITATIONS: None. FINDINGS: ANATOMY: No anomalies. Normal vascular flow voids. Pituitary fossa normal. CSF SPACES: Normal in size and contour. No hemorrhage. CEREBRUM: Sulci and gyri normal in size and contour. Normal white matter signal on FLAIR imaging. No evidence of hemorrhage, mass, or extraaxial fluid collection. POSTERIOR FOSSA: No signal alteration. No hemorrhage. No edema, masses or mass effect. Internal joshua tory canals, cerebello-pontine angles, mastoids normal. DIFFUSION IMAGING: Negative for acute or sub-acute infarction. ORBITS: No masses. Globes normal. PARANASAL SINUSES: No fluid levels. Mucosa normal. [place] MRA: No [place] stenosis, vascular malformation, or aneurysm. IMPRESSION: NORMAL MRI OF THE BRAIN WITHOUT INTRAVENOUS GADOLINIUM CONTRAST. UNREMARKABLE [place] MRA EXAM. EVIDENCE OF ACUTE STROKE: NO. TECHNICAL DOCUMENTATION: JOB ID: [id number] [employer]- All Rights Reserved Reading location - IP/workstation name: [email or web address]
--- NOTE | 2017-11-21 17:05 | RADIOLOGY REPORT (SQ) ---
EXAM DESCRIPTION: MRI HEAD WITHOUT; MRA HEAD WITHOUT COMPLETED DATE/TIME: 11/21/2017 4:26 pm REASON FOR STUDY: posterior headache as well as dizziness COMPARISON: CT brain 05/25/2017, 10/06/2017, 11/21/2017 MRI brain 05/25/2017 TECHNIQUE: Multiplanar imaging includes non-contrasted T1, T2, FLAIR, and diffusion with ADC map seq uences. Images stored on PACS. [place] MRA exam was performed, using 3D sast-zm-fqdvki acquisition. Images reviewed and so urce data and maximum intensity projections. Images saved to pacs. LIMITATIONS: None. FINDINGS: ANATOMY: No anomalies. Normal vascular flow voids. Pituitary fossa normal. CSF SPACES: Normal in size and contour. No hemorrhage. CEREBRUM: Sulci and gyri normal in size and contour. Normal white matter signal on FLAIR imaging. No evidence of hemorrhage, mass, or extraaxial fluid collection. POSTERIOR FOSSA: No signal alteration. No hemorrhage. No edema, masses or mass effect. Internal joshua tory canals, cerebello-pontine angles, mastoids normal. DIFFUSION IMAGING: Negative for acute or sub-acute infarction. ORBITS: No masses. Globes normal. PARANASAL SINUSES: No fluid levels. Mucosa normal. [place] MRA: No [place] of [place] stenosis, vascular malformation, or aneurysm. IMPRESSION: NORMAL MRI OF THE BRAIN WITHOUT INTRAVENOUS GADOLINIUM CONTRAST. UNREMARKABLE [place] MRA EXAM. EVIDENCE OF ACUTE STROKE: NO. TECHNICAL DOCUMENTATION: JOB ID: [id number] [employer]- All Rights Reserved Reading location - IP/workstation name: [email or web address]
--- NOTE | 2017-11-21 17:07 | RADIOLOGY REPORT (SQ) ---
EXAM DESCRIPTION: MRA NECK WITHOUT COMPLETED DATE/TIME: 11/21/2017 4:26 pm REASON FOR STUDY: posterior headache as well as dizziness COMPARISON: MRI BRAIN AND [place] SAME DATE CT SOFT TISSUE NECK WITH IV CONTRAST 07/23/2017 TECHNIQUE: Axial 2-D volume acquisition imaging through the extracranial carotid and vertebral arter ies with reformatting using 3-D MIPS. LIMITATIONS: None. FINDINGS: RIGHT CAROTID ARTERY: No stenosis or occlusive changes. Limited visualization of the orig in. LEFT CAROTID ARTERY: No stenosis or occlusive changes. Limited visualization of the origin. VERTEBRAL ARTERY: Right vertebral artery is small throughout the neck, an anatomic variant. This is unchanged from prior CT neck 07/23/2017. Dominant left vertebral artery without MRA evidence of disse ction. OTHER: No other significant finding. IMPRESSION: No MRA evidence of carotid or vertebral artery dissection. No flow significant stenosis at the carotid bifurcations. Left vertebral artery dominant, tiny right vertebral artery, an anatom ic variant. COMMENT: Quality ID #195: Measurements of distal internal carotid diameter were used as the denomin ator for stenosis measurement. TECHNICAL DOCUMENTATION: JOB ID: [id number] [employer]- All Rights Reserved Reading location - IP/workstation name: [email or web address]
--- NOTE | 2017-11-21 18:02 | ER Document Report ---
ED General - General Chief Complaint: Dizziness Stated Complaint: DIZZINESS Time Seen by Provider: 11/21/17 09:24 Mode of Arrival: Ambulatory Notes: 56-year-old female presents emergency department complaining of dizziness intermittently for the past week and a half, on Friday it started to become constant. She states previously it felt like waves and now it is constant. She states that she feels unsteady, feels like she cannot concentrate, states it is a spinning feeling associated with nausea and a posterior headache. Denies any injury, denies any inciting factor, denies anything that makes it worse or better. States she tried [id number] motion sickness medication in the form of meclizine and all it did was make her tired. Denies any numbness, tingling, weakness, blurry vision. TRAVEL OUTSIDE OF THE [place] IN LAST 30 DAYS: No - Related Data Allergies/Adverse Reactions: No Known Allergies Allergy (Verified 05/25/17 10:10) Past Medical History - General Information source: Patient - Social History Smoking Status: Never Smoker Chew tobacco use (# tins/day): No Frequency of alcohol use: None Drug Abuse: None Family History: Arthritis, CAD, CVA, DM, Hyperlipidemia, Hypertension, Malignancy Patient has suicidal ideation: No Patient has homicidal ideation: No - Past Medical History Cardiac Medical History: Reports: Hx Hypercholesterolemia Denies: Hx Congestive Heart Failure, Hx Heart Attack, Hx Hypertension Pulmonary Medical History: Reports: Hx Bronchitis, Hx Pneumonia Denies: Hx Asthma, Hx COPD, Hx Tuberculosis Neurological Medical History: Reports: Hx Cerebrovascular Accident - 1998, Hx Migraine. Denies: Hx Seizures Renal/ Medical History: Reports: Hx Ectopic , Hx Ovarian Cysts. 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 - Immunizations Hx Diphtheria, Pertussis, Tetanus Vaccination: No - unknown Review of Systems - Review of Systems Constitutional: No symptoms reported Cardiovascular: See HPI, Dizziness. denies: Chest pain, Palpitations, Dyspnea Neurological/Psychological: See HPI, Other - Dizziness Physical Exam - Vital signs Vitals: Temp Pulse Resp BP Pulse Ox 98.7 F 80 20 136/84 H 94 11/21/17 09:23 11/21/17 09:23 11/21/17 09:23 11/21/17 09:23 11/21/17 09:23 - Notes Notes: GENERAL: Alert, interacts well. No acute distress. HEAD: Normocephalic, atraumatic EYES: Pupils equal, round and reactive to light, extraocular movements intact. ENT: Oral mucosa moist, tongue midline. Nares patent, no nasal septal hematoma, TMs intact. NECK: Full range of motion, supple, trachea midline. LUNGS: Clear to auscultation bilaterally, no wheezes, rales or rhonchi, no respiratory distress. HEART: Regular rate and rhythm, no murmurs, gallops, rubs. ABDOMEN: Soft, nontender, nondistended, bowel sounds present in all 4 quadrants. EXTREMITIES: Moves all 4 extremities spontaneously, no edema, radial and dorsalis pedis pulses 2/4 bilaterally. No cyanosis. NEUROLOGICAL: Alert and oriented x3, normal speech, cranial nerves II through XII grossly intact, biceps and patellar DTRs 2+ bilaterally. [place]-Hallpike maneuver negative bilaterally. Patient able to ambulate without difficulty and without assistance, no evidence of ataxia. PSYCH: Normal mood, normal affect. SKIN: Warm, Dry, normal turgor, no rashes or lesions noted. Course - Re-evaluation Re-evalutation: 11/21/17 17:58 CBC unremarkable, CMP grossly unremarkable, ionized calcium is 1.15, thyroid function studies are normal, no evidence of abnormalities caused by her history of parathyroid surgery, urinalysis unremarkable, CT scan of the head was ordered due to the dizziness and occipital headache concerning for possible stroke, this was negative, given her continued dizziness and my inability to provoke it with [place]-Hallpike maneuver MRI of the head and MRA of the head and neck were performed to look at cerebellum and posterior circulation, these were all negative. Patient currently states that her dizziness is getting worse however I was able to stand her up and walk around the room without any difficulty, she has walked back and forth to and from the bathroom, states that her dizziness only worsened after she laid down for a prolonged period of time for the MRI. I did discuss with the patient that I see no evidence of cerebellar infarct, compromise of the vertebral circulation, peripheral cause of vertigo such as BPPV that I am able to fix. Recommended that she follow-up with neurology as an outpatient and she take meclizine 50 mg every 6 hours as needed for dizziness. Patient is agreeable to this plan however she is frustrated by the referral to neurology because she does not have any insurance and states that is going to take quite a long time for this to happen. Patient already sees [facility] however I will give her information to Kushal Robertson our ED social media specialist anyway to see if she can further facilitate this patient's referral to neurology. - Vital Signs Vital signs: Temp Pulse Resp BP Pulse Ox 98.7 F 80 12 114/90 H 98 11/21/17 09:23 11/21/17 09:23 11/21/17 12:31 11/21/17 12:31 11/21/17 12:31 - Laboratory Result Diagrams: 11/21/17 09:55 11/21/17 09:55 Laboratory results interpreted by me: 11/21/17 11/21/17 11/21/17 09:34 09:55 09:55 RDW 14.2 H Glucose 124 H POC Glucose 134 H Total Protein 8.6 H - EKG Interpretation by Me Additional EKG results interpreted by me: 11/21/17 18:00 EKG shows sinus rhythm at a rate of 72, normal axis, normal intervals, no ST segment elevations or depressions, there are T-wave inversions in lead III and aVF, rapid R-wave progression per my interpretation. Discharge - Discharge Clinical Impression: Dizziness Condition: Stable Disposition: HOME, SELF-CARE Additional Instructions: Today we did not see any signs of stroke or positional vertigo. It is very important that you follow-up with a neurologist as an outpatient to further diagnose your dizziness. The MRI did not show any signs of stroke or problems with the circulation in your neck and the back of your brain. Please take the meclizine 50 mg every 6 hours for dizziness for the next 2 days. If this does not help then you may stop taking it. Prescriptions: Meclizine HCl 50 mg PO Q6HP PRN #30 tablet PRN Reason: [facility] [NO LOCAL MD] - Follow up in 3-5 days
[2017-11-21 18:28] VITALS: BP 142/86
--- NOTE | 2017-11-21 22:10 | EKG REPORT ---
SEVERITY:- NORMAL ECG - SINUS RHYTHM : Confirmed by: Troy Carver 21-Nov-2017 22:09:33
== END 2017-11-21 18:00 | disposition home or self-care (01) ==
LOC: ER 09:19
DX: R42 Dizziness and giddiness (principal); E89.0 Postprocedural hypothyroidism; R51 Headache; R11.0 Nausea; R29.818 Other symptoms and signs involving the nervous system; Z86.73 Personal history of transient ischemic attack (TIA), and cerebral infarction without residual deficits; Z82.3 Family history of stroke; Z82.49 Family history of ischemic heart disease and other diseases of the circulatory system; Z83.3 Family history of diabetes mellitus; Z98.890 Other specified postprocedural states
CPT/HCPCS: 93005; 99284; 36415; 84439; 82962; 84443; 85025; 80053; 81001; 84481; 82330; 70551; 70547; 70544; 70450; 93010; J7030

== ENCOUNTER → 2017-12-08 | Outpatient (CLI) | payer OTHER ==
--- NOTE | 2017-12-08 16:03 | RADIOLOGY REPORT (SQ) ---
EXAM DESCRIPTION: T SPINE AP/LAT COMPLETED DATE/TIME: 12/08/2017 3:52 pm REASON FOR STUDY: . M54.5 LOW BACK PAIN M81.0 AGE-RELATED OSTEOPOROSIS W/O CURRENT PATHOLOGICAL FR AC COMPARISON: None. NUMBER OF VIEWS: Two views. TECHNIQUE: AP and lateral radiographic images acquired of the thoracic spine. LIMITATIONS: None. FINDINGS: MINERALIZATION: Normal. ALIGNMENT: Normal. No scoliosis. VERTEBRAE: No fracture or bone lesion. Maintained height, normal segmentation. DISCS: No significant loss of height or significant narrowing. No large osteophytes. HARDWARE: None in the spine. MEDIASTINUM AND SOFT TISSUES: Normal heart size and aortic contour. No soft tissue abnormality. VISUALIZED LUNG HUANG: Clear. OTHER: No other significant finding. IMPRESSION: NO SIGNIFICANT RADIOGRAPHIC FINDING IN THE THORACIC SPINE. TECHNICAL DOCUMENTATION: JOB ID: [id number] [employer]- All Rights Reserved Reading location - IP/workstation name: [email or web address]
--- NOTE | 2017-12-08 16:05 | RADIOLOGY REPORT (SQ) ---
EXAM DESCRIPTION: LUMBAR SPINE COMPLETE COMPLETED DATE/TIME: 12/08/2017 3:52 pm REASON FOR STUDY: AGE-RELATED OSTEOPOROSIS W/O CURRENT PATHOLOGICAL FRACTURE,LBP M54.5 LOW BACK YAMILETH N M81.0 AGE-RELATED OSTEOPOROSIS W/O CURRENT PATHOLOGICAL FRAC COMPARISON: None. NUMBER OF VIEWS: Five views including obliques. TECHNIQUE: AP, lateral, oblique, and sacral radiographic images acquired of the lumbar spine. LIMITATIONS: None. FINDINGS: MINERALIZATION: Normal. SEGMENTATION: Normal. No transitional anatomy. ALIGNMENT: Normal. VERTEBRAE: Maintained height. No fracture or worrisome bone lesion. DISCS: Preserved height. No significant osteophytes or end plate irregularity. POSTERIOR ELEMENTS: Pedicles and facets are intact. No pars defect or posterior arch defects. HARDWARE: None in the spine. PARASPINAL SOFT TISSUES: There is a 4 mm calcification in the left transverse process of L4 that coul d conceivably be in the ureter. PELVIS: Intact as visualized. No fractures or worrisome bone lesions. SI joints intact. OTHER: No other significant finding. IMPRESSION: Normal lumbar spine. Calcification near the left transverse process of L4 as described. TECHNICAL DOCUMENTATION: JOB ID: [id number] [employer]- All Rights Reserved Reading location - IP/workstation name: [email or web address]
== END ==
LOC: OD 15:19
DX: M54.5 Low back pain (principal); M81.0 Age-related osteoporosis without current pathological fracture
CPT/HCPCS: 72070; 72110

== ENCOUNTER → 2017-12-08 | Outpatient (CLI) | payer OTHER ==
[2017-12-08 15:27] LABS: ANION GAP 14 (5-19); BLOOD UREA NITROGEN 26 mg/dL (7-20); CALCIUM 9.9 mg/dL (8.4-10.2); CARBON DIOXIDE 22 mmol/L (22-30); CHLORIDE 107 mmol/L (98-107); GLUCOSE 107 mg/dL (75-110); POTASSIUM 4.3 mmol/L (3.6-5.0); SODIUM 142.5 mmol/L (137-145)
== END ==
LOC: CCC 14:43
DX: E11.8 Type 2 diabetes mellitus with unspecified complications (principal)
CPT/HCPCS: 36415; 80048

== ENCOUNTER → 2017-12-12 | Outpatient (CLI) | payer OTHER ==
--- NOTE | 2017-12-12 13:02 | RADIOLOGY REPORT (SQ) ---
EXAM DESCRIPTION: CT ABD/PELVIS NO ORAL OR IV COMPLETED DATE/TIME: 12/12/2017 11:05 am REASON FOR STUDY: N20.0 CALCULUS OF KIDNEY N20.0 CALCULUS OF KIDNEY COMPARISON: None. TECHNIQUE: CT scan of the abdomen and pelvis performed without intravenous or oral contrast. Images reviewed with lung, soft tissue, and bone windows. Reconstructed coronal and sagittal MPR images revi ewed. All images stored on PACS. All CT scanners at this facility use dose modulation, iterative reconstruction, and/or weight based d osing when appropriate to reduce radiation dose to as low as reasonably achievable (ALARA). [facility]: Dose Right [facility]: CareDose [facility]: Dose Right [facility]: Teradose 4D [facility]: Smart Technologies RADIATION DOSE: CT Rad equipment meets quality standard of care and radiation dose reduction techniq ues were employed. CTDIvol: 21.7 mGy. DLP: 1202 mGy-cm.mGy. LIMITATIONS: None. FINDINGS: LOWER CHEST: No significant findings. No nodules or infiltrates. NON-CONTRASTED LIVER, SPLEEN, ADRENALS: Evaluation limited by lack of IV contrast. No identified sign ificant masses. PANCREAS: No masses. No peripancreatic inflammatory changes. GALLBLADDER: No identified stones by CT criteria. No inflammatory changes to suggest cholecystitis. RIGHT KIDNEY AND URETER: No suspicious masses. Assessment limited by lack of IV contrast. Scattered calcifications. Difficult to determine if these are calyceal calculi or vascular calcifications. No hydronephrosis or hydroureter. LEFT KIDNEY AND URETER: No suspicious masses. Assessment limited by lack of IV contrast. Scattered calcifications. Some are vascular but others may be calyceal. No hydronephrosis or hydroureter. AORTA AND RETROPERITONEUM: No aneurysm. No retroperitoneal masses or adenopathy. BOWEL AND PERITONEAL CAVITY: Scattered diverticuli in the descending and sigmoid colon. No obvious m asses or inflammatory changes. No free fluid. APPENDIX: Normal. PELVIS, BLADDER, AND ABDOMINAL WALL:No abnormal masses. No free fluid. Bladder normal. BONES: No significant findings. OTHER: No other significant finding. IMPRESSION: 1. SCATTERED CALCIFICATIONS IN BOTH KIDNEYS WHICH MAY BE VASCULAR AND/OR NONOBSTRUCTING CALYCEAL CALC AYDEN. 2. DIVERTICULOSIS OF THE DESCENDING AND SIGMOID COLON. NO CT FINDINGS OF DIVERTICULITIS. 3. NO OTHER SIGNIFICANT OR ACUTE PROCESS IN THE ABDOMEN OR PELVIS. COMMENT: Quality ID # [id number]: Final reports with documentation of one or more dose reduction techniques (e.g., Automated exposure control, adjustment of the mA and/or kV according to patient size, use of iterative reconstruction technique) TECHNICAL DOCUMENTATION: JOB ID: [id number] [employer]- All Rights Reserved Reading location - IP/workstation name: [email or web address]
== END ==
LOC: RAD 10:35
DX: N20.0 Calculus of kidney (principal)
CPT/HCPCS: 74176

== ENCOUNTER 2018-02-07 08:37 | Emergency (ER) | payer OTHER ==
[2018-02-07 08:42] VITALS: BP 133/72
[2018-02-07] MEDS ORDERED: KETOROLAC TROMETHAMINE 60 MG/2 ML SDV IM ONE (08:55)
--- NOTE | 2018-02-07 08:56 | ER Document Report ---
HPI - HPI Pain Level: 3 Notes: Patient is a 57-year-old female no significant past medical history who presents to the ED complaining of left lateral hip pain intermittently over the last couple weeks. Patient states that movement and lateral rotation of the hip do increase her pain at times. Patient states that the pain is not as bad today. She denies any drug allergies. Pain does not radiate. She has not tried any medicines for her symptoms. Denies any known injury. Denies any headache, fever, URI, sore throat, chest pain, palpitations, syncope, cough, shortness of breath, wheeze, dyspnea, abdominal pain, nausea/vomiting/diarrhea, urinary retention, dysuria, hematuria, back pain, loss of control of bowel or bladder, numbness/tingling, saddle anesthesia, muscle paralysis/weakness, or rash. - ROS Systems Reviewed and Negative: Yes All other systems reviewed and negative - REPRODUCTIVE Reproductive: DENIES: : - MUSCULOSKELETAL Musculoskeletal: REPORTS: Extremity pain Past Medical History - Social History Smoking Status: Never Smoker Chew tobacco use (# tins/day): No Frequency of alcohol use: None Drug Abuse: None Family History: Arthritis, CAD, CVA, DM, Hyperlipidemia, Hypertension, Malignancy Patient has suicidal ideation: No Patient has homicidal ideation: No - Past Medical History Cardiac Medical History: Reports: Hx Hypercholesterolemia Denies: Hx Congestive Heart Failure, Hx Heart Attack, Hx Hypertension Pulmonary Medical History: Reports: Hx Bronchitis, Hx Pneumonia Denies: Hx Asthma, Hx COPD, Hx Tuberculosis Neurological Medical History: Reports: Hx Cerebrovascular Accident - 1998, Hx Migraine. Denies: Hx Seizures Endocrine Medical History: Reports: Hx Diabetes Mellitus Type 2 Renal/ Medical History: Reports: Hx Ectopic , Hx Ovarian Cysts. 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 LUNGS: Breath sounds clear to auscultation bilaterally and equal. No wheezes rales or rhonchi. HEART: Regular rate and rhythm without murmurs, rubs, gallops. ABDOMEN: Soft, nontender, nondistended abdomen. No guarding, no rebound. No masses appreciated. Normal bowel sounds present. No CVA tenderness bilaterally. No pulsatile mass Musculoskeletal: LE's b/l: FROM to passive/active. Strength 5+/5. No deficits noted. No bony tenderness of extremities. + tenderness to the left trochanteric bursa (correlates with pain described). N/V intact distal. No ecchymosis, erythema, crepitus, or deformity. Back: FROM to passive/active. Strength 5+/5. No vertebral point tenderness, stepoffs, or deformities. No other bony tenderness, erythema, swelling, or ecchymosis. SLR negative b/l. No SI jt tenderness. No foot drop Extremities: No cyanosis, clubbing, or edema b/l. Peripheral pulses 2+. Capillary refill less than 2 seconds. NEUROLOGICAL: Normal speech, normal gait. Normal sensory, motor exams. Reflexes 2+ b/l. PSYCH: Normal mood, normal affect. SKIN: Warm, Dry, normal turgor, no rashes or lesions noted. - INFECTION CONTROL TRAVEL OUTSIDE OF THE [place] IN LAST 30 DAYS: No Course - Re-evaluation Re-evalutation: 02/07/18 08:58 Patient is an afebrile, well-hydrated, 57-year-old female who presents to the ED with left lateral hip pain which I suspect to be trochanteric bursitis. Vitals are acceptable without any significant tachycardia, tachypnea, or hypoxia. PE is otherwise unremarkable for any neurovascular compromise, obvious tendon/ligament rupture, obvious fracture/dislocation, septic joint. Patient declined any Tylenol or ice. Patient is nontoxic-appearing. Patient is able to ambulate and weight-bear without any difficulty. No labs or imaging warranted at this time based on H&P. Toradol given IM today. I will send her home with a prescription for Voltaren gel. Conservative measures otherwise for symptoms. Recheck with your PCM in 3-5 days. Consider consult orthopedics. Return to the ED with any worsening/concerning symptoms otherwise as reviewed in discharge. Patient is in agreement. - Vital Signs Vital signs: Temp Pulse Resp BP Pulse Ox 98.9 F 80 18 133/72 H 94 02/07/18 08:41 02/07/18 08:41 02/07/18 08:41 02/07/18 08:41 02/07/18 08:41 Discharge - Discharge Clinical Impression: Trochanteric bursitis, left hip Condition: Stable Disposition: HOME, SELF-CARE Additional Instructions: Rest, Ice, Compression, Elevation Tylenol/ibuprofen as needed Light stretches daily Strength exercises as able Moist heat and massage may help F/u with your PCP in 3-5 days for a recheck Consider consult(s) with Orthopedics/physical therapy for ongoing/worsening symptoms Return to the ED with any worsening symptoms and/or development of fever, headache, chest pain, palpitations, syncope, shortness of breath, trouble breathing, abdominal pain, n/v/d, muscle weakness/paralysis, numbness/tingling, swelling, redness, or other worsening symptoms that are concerning to you. Prescriptions: Diclofenac Sodium [Voltaren] 4 gm TP QID PRN #100 gel..gm. PRN Reason: Forms: Elevated Blood Pressure Referrals: [facility] [Primary Care Provider] - Follow up as needed [facility] [Provider Group] - Follow up as needed
== END 2018-02-07 09:12 | disposition home or self-care (01) ==
LOC: ER 08:37
DX: M70.62 Trochanteric bursitis, left hip (principal); M25.552 Pain in left hip; E11.9 Type 2 diabetes mellitus without complications
CPT/HCPCS: 99283; 96372; J1885

== ENCOUNTER → 2018-02-23 | Outpatient (CLI) | payer OTHER ==
[2018-02-23 12:07] LABS: CALCIUM 9.6 mg/dL (8.4-10.2); PHOSPHORUS 3.6 mg/dL (2.5-4.5)
== END ==
LOC: OD 11:08
DX: E21.3 Hyperparathyroidism, unspecified (principal)
CPT/HCPCS: 36415; 82306; 82310; 83970; 84100

== ENCOUNTER → 2018-04-08 | Outpatient (CLI) | payer OTHER | LOC: CCC 11:32 | DX: E11.8 Type 2 diabetes mellitus with unspecified complications (principal) | CPT/HCPCS: 36415; 83036 ==

== ENCOUNTER 2018-05-22 07:16 | Emergency (ER) | payer SELFPAY ==
--- NOTE | 2018-05-22 08:53 | RADIOLOGY REPORT (SQ) ---
EXAM DESCRIPTION: KUB/ABDOMEN (SINGLE VIEW) COMPLETED DATE/TIME: 05/22/2018 8:37 am REASON FOR STUDY: eval for retained stool, no BM x3 days COMPARISON: CT abdomen and pelvis without contrast 12/12/2017. Abdominal series 04/02/2015. NUMBER OF VIEWS: One view. TECHNIQUE: Supine radiographic image of the abdomen acquired. LIMITATIONS: None. FINDINGS: BOWEL GAS PATTERN: Nonspecific bowel-gas pattern. Scattered fecal material within colon. CALCIFICATIONS: There are multiple calcified phleboliths in pelvis and calcifications in the left pa ralumbar region at the level of L4 and L5 which were noted to fall outside the contour of the left ur eter on prior CT of the abdomen and pelvis without contrast 12/12/2017. There are calcifications over lying both kidneys which could represent renal vascular calcification. Calcification lower pole left kidney possibly representing caliceal calculi. SOFT TISSUES: No gross mass or suggestion of organomegaly. HARDWARE: None in the abdomen. BONES: No acute fracture. No worrisome bone lesions. OTHER: No other significant finding. IMPRESSION: Renovascular calcification bilaterally. Possible left lower pole caliceal calculi. Non specific bowel-gas pattern. . TECHNICAL DOCUMENTATION: JOB ID: [id number] 2010 [employer]- All Rights Reserved Reading location - IP/workstation name: [email or web address]
[2018-05-22] MEDS ORDERED: LIDOCAINE 2% URO-JET 5 ML KIT MM ONE (09:10)
[2018-05-22] MEDS ORDERED: NA PHOS,M-B/NA PHOS,DI-BA (ADULT) 133 ML ENEMA PR ONE (09:10)
[2018-05-22] MEDS ORDERED: MAGNESIUM CITRATE 296 ML BOTTLE PO ONE (09:39)
[2018-05-22] MEDS ORDERED: MINERAL OIL 30 ML UDCUP PR ONE (10:48)
--- NOTE | 2018-05-22 12:07 | ER Document Report ---
ED GI/ - General Chief Complaint: Constipation Stated Complaint: CONSTIPATION Time Seen by Provider: 05/22/18 08:07 Mode of Arrival: Ambulatory Information source: Patient Notes: Patient is a 57-year-old female who presents with chief complaint of constipation. Patient reports she has not had a bowel movement in 3 days. She reports that she feels a hard large amount of stool near the rectum. She states that she has had a small amount of blood on her toilet paper with wiping. She does have a history of hemorrhoids. Patient denies any abdominal pain or fevers. Patient has tried taking a suppository to relieve this with no production of bowel movement. TRAVEL OUTSIDE OF THE [place] IN LAST 30 DAYS: No - Related Data Allergies/Adverse Reactions: No Known Allergies Allergy (Verified 05/22/18 07:17) Past Medical History - Social History Smoking Status: Never Smoker Frequency of alcohol use: None Drug Abuse: None Family History: Arthritis, CAD, CVA, DM, Hyperlipidemia, Hypertension, Malignancy Patient has suicidal ideation: No Patient has homicidal ideation: No - Past Medical History Cardiac Medical History: Reports: Hx Hypercholesterolemia Denies: Hx Congestive Heart Failure, Hx Heart Attack, Hx Hypertension Pulmonary Medical History: Reports: Hx Bronchitis, Hx Pneumonia Denies: Hx Asthma, Hx COPD, Hx Tuberculosis Neurological Medical History: Reports: Hx Cerebrovascular Accident - 1998, Hx Migraine. Denies: Hx Seizures Endocrine Medical History: Reports: Hx Diabetes Mellitus Type 2 - pre-diabetic Renal/ Medical History: Reports: Hx Ectopic , Hx Ovarian Cysts. 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 HEAD: Atraumatic, normocephalic. EYES: Pupils equal round and reactive to light, extraocular movements intact, conjunctiva are normal. ENT: Nares patent, oropharynx clear without exudates. Moist mucous membranes. NECK: Normal range of motion, supple without lymphadenopathy LUNGS: Breath sounds clear to auscultation bilaterally and equal. No wheezes rales or rhonchi. HEART: Regular rate and rhythm without murmurs ABDOMEN: Soft, nontender, nondistended abdomen. No guarding, no rebound. No masses appreciated. Female : deferred Musculoskeletal: Normal range of motion, no pitting or edema. No cyanosis. NEUROLOGICAL: Cranial nerves grossly intact. Normal speech, normal gait. Normal sensory, motor exams PSYCH: Normal mood, normal affect. SKIN: Warm, Dry, normal turgor, no rashes or lesions noted. Course - Re-evaluation Re-evalutation: KUB was obtained and is relatively unremarkable. No large amount of retained stool is noted. Patient is convinced that there is a large amount of stool near the rectum. I did do a digital exam and could feel some hard stool in the area. Patient will be given a fleets enema. No bowel movement after administration of fleets enema. Patient will be given a soapsuds enema with mineral oil as patient states she is not going home until she has a bowel movement. Patient also given a bottle of mag citrate to drink here in the emergency department. Patient had moderate-sized bowel movement after administration of fleets enema, patient reports she is feeling much better. Patient ready for discharge home. - Vital Signs Vital signs: Temp Pulse Resp BP Pulse Ox 98.3 F 103 H 17 116/77 95 05/22/18 12:12 05/22/18 12:12 05/22/18 12:12 05/22/18 12:12 05/22/18 12:12 Discharge - Discharge Clinical Impression: Constipation Qualifiers: Constipation type: unspecified constipation type Qualified Code(s): K59.00 - Constipation, unspecified Condition: Stable Disposition: HOME, SELF-CARE Additional Instructions: Constipation Constipation is a common problem. It is especially likely as you get older. Constipation is a common cause of abdominal pain, but sometimes causes no symptoms at all. Causes of constipation include certain medications, dehydration, diets, inactivity, and low-fiber intake. Rarely, it can be a symptom of underlying disease. The physician has evaluated you for this. Avoid constipation by eating a diet high in fiber, fruits, and vegetables. Drink plenty of liquids. Get regular exercise. If possible, avoid constipating medicines like narcotic pain medication. Some vitamin tablets can cause constipation. Stool softeners may be needed for difficult cases. An excellent stool softener is Konsyl which is available at [employer], [employer] drug [employer]. Just add a teaspoon to a glass of pineapple or orange juice daily or twice a day if needed. Laxatives are useful for occasional constipation. You should use them only when necessary. Too-frequent use can make your bowels dependent on them. Some over the counter laxatives available without prescription are: Milk of Magnesia, 1-2 tablespoons twice a day Dulcolax, 5 mg pill or 10 mg suppository. Citrate of Magnesia, 4-5 ounces a day for a day or two For acute constipation, Fleet's Enemas and Dulcolax suppositories are helpful. Chronic, intermediate project manager use of laxatives or enemas is not a good idea. Your bowel may become dependant on them. You do not need to have a bowel movement every day. Many people do fine with a bowel movement every three or four days. You should call your doctor or return for re-evaluation if you pass blood in the stool, or if you develop fever or increasing abdominal pain.
[2018-05-22 12:14] VITALS: BP 116/77
== END 2018-05-22 12:16 | disposition home or self-care (01) ==
LOC: ER 07:16
DX: K59.00 Constipation, unspecified (principal)
CPT/HCPCS: 99283; 74018; J3490 ×4

== ENCOUNTER 2018-11-09 14:32 | Emergency (ER) | payer SELFPAY ==
--- NOTE | 2018-11-09 15:22 | ER Document Report ---
ED Medical Screen (RME) - General Chief Complaint: Dizziness Stated Complaint: DIZZY,NAUSEA,HEAD PAIN Time Seen by Provider: 11/09/18 15:19 Mode of Arrival: Ambulatory Information source: Patient Notes: 57-year-old female presents to ED for complaint of nausea dizziness weakness and sweats starting yesterday. Today she is having flashing headaches that feel like when she had a stroke a long time ago. She states she does not have headaches normally. She states her blood pressure is usually normal but has had a history of high blood pressure stroke and diabetes in the past. She states she is also had ectopic pregnancies removed and a hysterectomy. Patient is alert oriented respirations regular and unlabored speaking in full sentences no confusion no slurred speech no facial droop. I have greeted and performed a rapid initial assessment of this patient. A comprehensive ED assessment and evaluation of the patient, analysis of test results and completion of medical decision making process will be conducted by an additional ED providers. Dictation of this chart was performed using voice recognition software; therefore, there may be some unintended grammatical errors. TRAVEL OUTSIDE OF THE [place] IN LAST 30 DAYS: No - Related Data Allergies/Adverse Reactions: No Known Allergies Allergy (Verified 11/09/18 14:37) Past Medical History - Past Medical History Cardiac Medical History: Reports: Hx Hypercholesterolemia Denies: Hx Congestive Heart Failure, Hx Heart Attack, Hx Hypertension Pulmonary Medical History: Reports: Hx Bronchitis, Hx Pneumonia Denies: Hx Asthma, Hx COPD, Hx Tuberculosis Neurological Medical History: Reports: Hx Cerebrovascular Accident - 1998, Hx Migraine. Denies: Hx Seizures Endocrine Medical History: Reports: Hx Diabetes Mellitus Type 2 - pre-diabetic Renal/ Medical History: Reports: Hx Ectopic , Hx Ovarian Cysts. 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
--- NOTE | 2018-11-09 15:46 | RADIOLOGY REPORT (SQ) ---
EXAM DESCRIPTION: CT HEAD WITHOUT COMPLETED DATE/TIME: 11/09/2018 3:31 pm REASON FOR STUDY: headache feels like previous stroke COMPARISON: 11/21/2017 TECHNIQUE: Axial images acquired through the brain without intravenous contrast. Images reviewed wi th bone, brain and subdural windows. Additional sagittal and coronal reconstructions were generated. Images stored on PACS. All CT scanners at this facility use dose modulation, iterative reconstruction, and/or weight based d osing when appropriate to reduce radiation dose to as low as reasonably achievable (ALARA). [facility]: Dose Right [facility]: CareDose [facility]: Dose Right [facility]: Teradose 4D [facility]: Smart [employer] RADIATION DOSE: CT Rad equipment meets quality standard of care and radiation dose reduction techniq ues were employed. CTDIvol: 53.2 mGy. DLP: 991 mGy-cm. mGy. LIMITATIONS: None. FINDINGS: VENTRICLES: Normal size and contour. CEREBRUM: No masses. No hemorrhage. No midline shift. No evidence for acute infarction. Normal gra y/white matter differentiation. No areas of low density in the white matter. CEREBELLUM: No masses. No hemorrhage. No alteration of density. No evidence for acute infarction. EXTRAAXIAL SPACES: No fluid collections. No masses. ORBITS AND GLOBE: No intra- or extraconal masses. Normal contour of globe without masses. CALVARIUM: No fracture. PARANASAL SINUSES: No fluid or mucosal thickening. SOFT TISSUES: No mass or hematoma. OTHER: No other significant finding. IMPRESSION: No acute intracranial pathology. EVIDENCE OF ACUTE STROKE: NO. COMMENT: Quality ID # [id number]: Final reports with documentation of one or more dose reduction techniques (e.g., Automated exposure control, adjustment of the mA and/or kV according to patient size, use of iterative reconstruction technique) TECHNICAL DOCUMENTATION: JOB ID: [id number] [employer]- All Rights Reserved Reading location - IP/workstation name: [email or web address]
--- NOTE | 2018-11-09 15:50 | RADIOLOGY REPORT (SQ) ---
EXAM DESCRIPTION: CHEST 2 VIEWS COMPLETED DATE/TIME: 11/09/2018 3:37 pm REASON FOR STUDY: nausea vomiting head ache dizziness COMPARISON: 08/24/2017 EXAM PARAMETERS: NUMBER OF VIEWS: two views TECHNIQUE: Digital Frontal and Lateral radiographic views of the chest acquired. RADIATION DOSE: NA LIMITATIONS: none FINDINGS: LUNGS AND PLEURA: No opacities, masses or pneumothorax. No pleural effusion. MEDIASTINUM AND HILAR STRUCTURES: No masses or contour abnormalities. HEART AND VASCULAR STRUCTURES: Cardiomegaly. BONES: No acute findings. HARDWARE: None in the chest. OTHER: No other significant finding. IMPRESSION: Cardiomegaly without acute abnormality of the lungs. TECHNICAL DOCUMENTATION: JOB ID: [id number] [employer]- All Rights Reserved Reading location - IP/workstation name: [email or web address]
[2018-11-09 16:06] LABS: PARTIAL THROMBOPLASTIN TIME 26.3 SEC (23.5-35.8); PROTHROMBIN TIME 13.2 SEC (11.4-15.4)
[2018-11-09 16:18] LABS: ALANINE AMINOTRANSFERASE 16 U/L (9-52); ALBUMIN 4.6 g/dL (3.5-5.0); ALKALINE PHOSPHATASE 79 U/L (38-126); ANION GAP 9 (5-19); ASPARTATE AMINO TRANSFERASE 17 U/L (14-36); BILIRUBIN,DIRECT 0.3 mg/dL (0.0-0.4); BILIRUBIN,TOTAL 0.4 mg/dL (0.2-1.3); BLOOD UREA NITROGEN 17 mg/dL (7-20); CALCIUM 10.1 mg/dL (8.4-10.2); CARBON DIOXIDE 32 mmol/L (22-30); CHLORIDE 99 mmol/L (98-107); CREATINE KINASE 76 U/L (30-135); GLUCOSE 118 mg/dL (75-110); POTASSIUM 4.3 mmol/L (3.6-5.0); SODIUM 139.5 mmol/L (137-145); TOTAL PROTEIN 8.1 g/dL (6.3-8.2)
[2018-11-09 16:29] LABS: ABSOLUTE EOSINOPHILS # (AUTO) 0.1 10^3/uL (0.0-0.6); ABSOLUTE LYMPHOCYTES (AUTO) 2.6 10^3/uL (0.5-4.7); ABSOLUTE MONOCYTES (AUTO) 0.4 10^3/uL (0.1-1.4); ABSOLUTE NEUT (AUTO) 3.2 10^3/uL (1.7-8.2); BASOPHILS % (AUTO) 0.5 % (0-2); HEMATOCRIT 39.9 % (36.0-47.0); HEMOGLOBIN 13.4 g/dL (12.0-15.5); LYMPHOCYTES % (AUTO) 40.9 % (13-45); MEAN CORPUSCULAR HGB CONC 33.6 g/dL (32.0-36.0); MEAN CORPUSCULAR VOLUME 84 fl (80-97); MONOCYTES % (AUTO) 6.6 % (3-13); PLATELET COUNT 221 10^3/uL (150-450); RED BLOOD COUNT 4.78 10^6/uL (3.72-5.28); RED CELL DISTRIBUTION WIDTH 13.3 % (11.5-14.0); TOTAL CELLS COUNTED % (AUTO) 100 %; WHITE BLOOD COUNT 6.3 10^3/uL (4.0-10.5)
[2018-11-09 16:32] LABS: CREATINE KINASE MB 0.43 ng/mL (<4.55)
[2018-11-09 16:41] LABS: TROPONIN I < 0.012 ng/mL
--- NOTE | 2018-11-09 19:24 | EKG REPORT ---
SEVERITY:- ABNORMAL ECG - SINUS RHYTHM PROBABLE RIGHT VENTRICULAR HYPERTROPHY INFERIOR INFARCT, OLD : Confirmed by: Staci Rodriguez MD 09-Nov-2018 19:24:24
[2018-11-09 19:54] LABS: APPEARANCE,URINE CLEAR; BILIRUBIN,URINE NEGATIVE (NEGATIVE); COLOR,URINE YELLOW; GLUCOSE, URINE NEGATIVE (NEGATIVE); KETONES,URINE NEGATIVE (NEGATIVE); LEUKOCYTE ESTERASE,URINE NEGATIVE (NEGATIVE); NITRITE,URINE NEGATIVE (NEGATIVE); PROTEIN,URINE NEGATIVE (NEGATIVE); UROBILINOGEN,URINE NEGATIVE mg/dL (<2.0)
[2018-11-09 19:58] LABS: URINE SPECIFIC GRAVITY 1.023
[2018-11-09 20:05] VITALS: BP 148/100
--- NOTE | 2018-11-09 21:41 | ER Document Report ---
Entered by OTTO MARIE SCRIBE 11/09/181947 Acting as scribe for:MARTA BURCH MD ED Headache - General Chief Complaint: Dizziness Stated Complaint: DIZZY,NAUSEA,HEAD PAIN Time Seen by Provider: 11/09/18 15:19 Mode of Arrival: Ambulatory Notes: 57 year old female that presents to the emergency department today with complaints of a headache, nausea, and generalized weakness. Patient states she believes she "has a case of vertigo again". Patient had an extensive work-up done approximately a year ago for similar symptoms including an MRI all of which were negative. Patient describes "flashes of pain" in her head. TRAVEL OUTSIDE OF THE [place] IN LAST 30 DAYS: No - Related Data Allergies/Adverse Reactions: No Known Allergies Allergy (Verified 11/09/18 14:37) Past Medical History - General Information source: Patient - Social History Smoking Status: Never Smoker Cigarette use (# per day): No Frequency of alcohol use: None Drug Abuse: None Lives with: Family Family History: Reviewed & Not Pertinent, Arthritis, CAD, CVA, DM, Hyperlipidemia, Hypertension, Malignancy - Past Medical History Cardiac Medical History: Reports: Hx Hypercholesterolemia Pulmonary Medical History: Reports: Hx Bronchitis, Hx Pneumonia Neurological Medical History: Reports: Hx Cerebrovascular Accident - 1998, Hx Migraine Endocrine Medical History: Reports: Hx Diabetes Mellitus Type 2 - pre-diabetic Renal/ Medical History: Reports: Hx Ectopic , Hx Ovarian Cysts Musculoskeletal Medical History: Reports Hx Arthritis Psychiatric Medical History: Reports: Hx Bipolar Disorder, Hx Depression - Medication free x 4 years Past Surgical History: Reports: Hx Gynecologic Surgery - ectopic, Hx Hysterectomy, 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 - Immunizations Hx Diphtheria, Pertussis, Tetanus Vaccination: No - unknown Review of Systems - Review of Systems Constitutional: See HPI, Weakness EENT: No symptoms reported Cardiovascular: No symptoms reported Respiratory: No symptoms reported Gastrointestinal: See HPI, Nausea Genitourinary: No symptoms reported Female Genitourinary: No symptoms reported Musculoskeletal: No symptoms reported Skin: No symptoms reported Hematologic/Lymphatic: No symptoms reported Neurological/Psychological: See HPI, Headaches -: Yes All other systems reviewed and negative Physical Exam - Vital signs Vitals: Temp Pulse Resp BP Pulse Ox 98.3 F 75 18 132/68 H 94 11/09/18 14:50 11/09/18 14:50 11/09/18 14:50 11/09/18 14:50 11/09/18 14:50 - General General appearance: Appears well, Alert In distress: None - HEENT Head: Normocephalic, Atraumatic, Tenderness - There is tenderness in posterior cervical muscles and nuchal ridge on either side. Eyes: Normal Pupils: PERRL Neck: Supple, Other - History of cervical muscles very tender to palpate. There is a tender area in the right anterior cervical region, I do not palpate enlarged lymph nodes or other mass.. No: Neck mass - Respiratory Respiratory status: No respiratory distress Breath sounds: Normal - Cardiovascular Rhythm: Regular Heart sounds: Normal auscultation Murmur: No - Abdominal Inspection: Obese Bowel sounds: Normal Tenderness: Nontender - Back Back: Normal - Extremities General upper extremity: Normal inspection General lower extremity: Normal inspection - Neurological Neuro grossly intact: Yes - Psychological Associated symptoms: Normal affect, Normal mood - Skin Skin Temperature: Warm Skin Moisture: Dry Skin Color: Normal Course - Re-evaluation Re-evalutation: 11/09/18 19:46 The patient already had a saline lock in her arm. I did offer her the migraine/tension headache cocktail I like to use which uses Benadryl, Compazine, and Toradol, she decided she did not want any medications and wanted to go home and take medications orally for this problem. She does seem relieved that this is apparently just the vertigo like she had one year ago and a muscle tension type headache. - Vital Signs Vital signs: Temp Pulse Resp BP Pulse Ox 97.7 F 75 16 148/100 H 93 11/09/18 20:00 11/09/18 20:00 11/09/18 20:00 11/09/18 20:00 11/09/18 20:00 - Laboratory Result Diagrams: 11/09/18 15:40 11/09/18 15:40 Laboratory results interpreted by me: 11/09/18 15:40 Carbon Dioxide 32 H Glucose 118 H - Diagnostic Test Radiology reviewed: Image reviewed, Reports reviewed - CT scan of the head is unremarkable. Chest x-ray shows cardiomegaly without any other abnormalities. Discharge - Discharge Clinical Impression: Vertigo, Muscle tension headache Condition: Stable Disposition: HOME, SELF-CARE Additional Instructions: Tension Headache Your problem has been diagnosed as muscle tension headache. This very common type of headache occurs because of tightness in the muscles of the head and neck. The cause may be neck or jaw joint problems, but most commonly the cause is emotional stress. The headache may last hours or days. The treatment of uncomplicated tension headaches is rest and pain med ication. Often, the newer antiinflammatory pain medications are prescribed, as these also decrease the irritability of the painful tissues. Muscle relaxers, cold packs, or warm packs are sometimes helpful. Anti-anxiety medication or narcotics are sometimes needed temporarily, but are best avoided in the long run. Your doctor has evaluated your headache problem, and finds no evidence of a serious health problem as a cause for the headache. If your headache becomes more severe, or if new symptoms develop (such as fever, stiff neck, vomiting, or decreasing alertness) you should be re-examined by the physician. Vertigo You have experienced an episode of vertigo -- a whirling dizziness which may be accompanied by nausea and vomiting or staggering. Vertigo is often caused by an irritation of the inner ear, in which case it is called labyrinthitis. It can also be a symptom of a degenerating inner ear, nerve damage, or brain injury. Your physician has evaluated you to determine whether any further testing is necessary. Vertigo is often treated with dramamine or meclizine. These medications are helpful, but stronger medication may be needed if you are vomiting. Rest in bed. You should not drive or operate machinery until completely better. It may take one to three weeks for recovery. If there are new symptoms, such as decreased hearing or vision, severe headache, weakness or faintness, or confusion, call the physician. Take medication as prescribed for your dizziness. Take Tylenol and ibuprofen for the tension headache. Drink plenty of fluids and get plenty of rest. Follow-up with a local medical doctor if not improving. RETURN TO THE EMERGENCY ROOM IF ANY NEW OR WORSENING SYMPTOMS. Prescriptions: Meclizine HCl [Antivert 25 mg Tablet] 25 mg PO TID PRN #30 tablet PRN Reason: Scribe Attestation: 11/09/18 19:44 I personally performed the services described in the documentation, reviewed and edited the documentation which was dictated to the scribe in my presence, and it accurately records my words and actions. I personally performed the services described in the documentation, reviewed and edited the documentation which was dictated to the scribe in my presence, and it accurately records my words and actions.
== END 2018-11-09 20:18 | disposition home or self-care (01) ==
LOC: ER 14:32
DX: R42 Dizziness and giddiness (principal); G44.209 Tension-type headache, unspecified, not intractable; R11.0 Nausea; R53.1 Weakness; I51.7 Cardiomegaly
CPT/HCPCS: 36415; 70450; 71046; 80053; 81001; 82550; 82553; 84484; 85025; 85610; 85730; 93005; 93010; 99284

== ENCOUNTER 2018-12-03 07:53 | Emergency (ER) | payer SELFPAY ==
[2018-12-03 07:58] VITALS: BP 139/76
--- NOTE | 2018-12-03 08:24 | ER Document Report ---
HPI - HPI Time Seen by Provider: 12/03/18 08:23 Pain Level: 2 Notes: 58-year-old female presents to the ED for evaluation of rash on her hands for approximately 3 days, becoming progressively worse, tried lotion without relief. Patient states that she just started adding bleach when she is washing her dishes. Reports rash is itchy, denies worse at night. Denies any new medications foods or travel. Vaccinations are up-to-date. Applying lotion does help with itching sensation. Denies a history of eczema. Denies any fevers or chills, no chest pain shortness of breath nausea vomiting or diarrhea. - CONSTITUTIONAL Constitutional: DENIES: Fever, Chills - EENT EENT: DENIES: Sore Throat, Ear Pain, Eye problems - NEURO Neurology: DENIES: Headache, Weakness, Vision blurred, Dizzinesss / Vertigo - CARDIOVASCULAR Cardiovascular: DENIES: Chest pain - RESPIRATORY Respiratory: DENIES: Trouble Breathing, Coughing - GASTROINTESTINAL Gastrointestinal: DENIES: Abdominal Pain, Black / Bloody Stools - URINARY Urinary: DENIES: Dysuria, Urgency, Frequency - REPRODUCTIVE Reproductive: DENIES: : - MUSCULOSKELETAL Musculoskeletal: DENIES: Extremity pain Past Medical History - General Information source: Patient - Social History Smoking Status: Unknown if Ever Smoked Chew tobacco use (# tins/day): No Frequency of alcohol use: None Drug Abuse: None Family History: Reviewed & Not Pertinent, Arthritis, CAD, CVA, DM, Hyperlipidemia, Hypertension, Malignancy Patient has suicidal ideation: No Patient has homicidal ideation: No - Past Medical History Cardiac Medical History: Reports: Hx Hypercholesterolemia Denies: Hx Congestive Heart Failure, Hx Heart Attack, Hx Hypertension Pulmonary Medical History: Reports: Hx Bronchitis, Hx Pneumonia Denies: Hx Asthma, Hx COPD, Hx Tuberculosis Neurological Medical History: Reports: Hx Cerebrovascular Accident - 1998, Hx Migraine. Denies: Hx Seizures Endocrine Medical History: Reports: Hx Diabetes Mellitus Type 2 - pre-diabetic Renal/ Medical History: Reports: Hx Ectopic , Hx Ovarian Cysts. 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 HEAD: Atraumatic, normocephalic. ENT: Nares patent, oropharynx clear without exudates. Moist mucous membranes. NECK: Normal range of motion, supple without lymphadenopathy LUNGS: Breath sounds clear to auscultation bilaterally and equal. No wheezes rales or rhonchi. HEART: Regular rate and rhythm without murmurs ABDOMEN: Soft, nontender, nondistended abdomen. No guarding, no rebound. No masses appreciated. Female : deferred Musculoskeletal: Normal range of motion, no pitting or edema. No cyanosis. NEUROLOGICAL: Cranial nerves grossly intact. Normal speech, normal gait. Normal sensory, motor exams PSYCH: Normal mood, normal affect. SKIN: Warm, Dry, normal turgor, no rashes or lesions noted. ,maculopapular rash to left and right second third and fourth interphalangeal space, noted vesicles does not extend past proximal phalanges bilaterally, no linear pattern, burrowing, open wounds drainage, no satellite lesions - INFECTION CONTROL TRAVEL OUTSIDE OF THE [place] IN LAST 30 DAYS: No Course - Re-evaluation Re-evalutation: 12/03/18 10:46 Afebrile no similar distress. Nursing notes reviewed. Discussed with patient that she has dyshidrotic eczema, advised to apply topical steroid as needed, do not have bleach to patient is anymore or if you to please thoroughly rinse her hands thereafter wear protective gloves. Follow-up with primary care provider as needed. After performing a Medical Screening Examination, I estimate there is LOW risk for any life threatening rash. At this time the patient looks extremely well and there are no signs of systemic infection, however this may change at any time and the rash may change. I have reevaluated this patient multiple times and no significant life threatening changes are noted. The patient and I have discussed the diagnosis and risks, and we agree with discharging home with close follow-up with the understanding that symptoms and presentations can change. We also discussed returning to the Emergency Department immediately if new or worsening symptoms occur. We have discussed the symptoms which are most concerning (e.g., changing or worsening pain, fever, numbness, weakness, cool or painful digits) that necessitate immediate return. - Vital Signs Vital signs: Temp Pulse Resp BP Pulse Ox 98.3 F 80 16 139/76 H 93 12/03/18 07:56 12/03/18 07:56 12/03/18 07:56 12/03/18 07:56 12/03/18 07:56 Discharge - Discharge Clinical Impression: Dyshidrotic eczema Condition: Stable Disposition: HOME, SELF-CARE Instructions: Atopic Dermatitis (Eczema) ([facility]) Additional Instructions: Apply cream twice a day for no longer than 2 weeks. Avoid irritating substances, do not mix bleach when washing your dishes. Follow-up with your primary care provider as needed. Return immediately for any new or worsening symptoms. Follow up with primary care provider, call tomorrow to make followup appointment. Prescriptions: RX: Triamcinolone Acetonide [Aristocort 0.025% Cream] 1 applic TP BID #30 gram Referrals: KANG QUINONES MD [ACTIVE STAFF] - Follow up as needed
== END 2018-12-03 09:03 | disposition home or self-care (01) ==
LOC: ER 07:53
DX: L30.1 Dyshidrosis [pompholyx] (principal); E78.00 Pure hypercholesterolemia, unspecified; R73.03 Prediabetes
CPT/HCPCS: 99282

== ENCOUNTER 2018-12-11 12:03 | Emergency (ER) | payer SELFPAY ==
[2018-12-11] MEDS ORDERED: IBUPROFEN 800 MG TABLET PO ONE (12:17)
--- NOTE | 2018-12-11 12:19 | ER Document Report ---
HPI - HPI Patient complains to provider of: left thigh pain Time Seen by Provider: 12/11/18 12:12 Onset: This morning Onset/Duration: Sudden Quality of pain: Achy Pain Level: 2 Context: This 58-year-old female presents emergency department with complaints of left thigh pain. Reports she was vacuuming her house when she bent over stretch her leg and felt something tear. Reports she is had pain since that time. Denies past medical history of injury to that thigh. No other complaints such as fever vomiting diarrhea. Patient complains of pain with sitting complains of pain with standing up and moving. Associated Symptoms: None Exacerbated by: Movement, Walking Relieved by: Denies Similar symptoms previously: No Recently seen / treated by doctor: No - REPRODUCTIVE Reproductive: DENIES: : Past Medical History - General Information source: Patient - Social History Smoking Status: Unknown if Ever Smoked Cigarette use (# per day): No Frequency of alcohol use: None Drug Abuse: None Family History: Reviewed & Not Pertinent, Arthritis, CAD, CVA, DM, Hyperlipidemia, Hypertension, Malignancy - Past Medical History Cardiac Medical History: Reports: Hx Hypercholesterolemia Denies: Hx Congestive Heart Failure, Hx Heart Attack, Hx Hypertension Pulmonary Medical History: Reports: Hx Bronchitis, Hx Pneumonia Denies: Hx Asthma, Hx COPD, Hx Tuberculosis Neurological Medical History: Reports: Hx Cerebrovascular Accident - 1998, Hx Migraine. Denies: Hx Seizures Endocrine Medical History: Reports: Hx Diabetes Mellitus Type 2 - pre-diabetic Renal/ Medical History: Reports: Hx Ectopic , Hx Ovarian Cysts. 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 IN LAST 30 DAYS: No - HEENT HEENT: Atraumatic, Normocephalic - NECK Neck: Supple - RESPIRATORY Respiratory: No Respiratory Distress - CARDIOVASCULAR Cardiovascular: Regular Rate - MUSCULOSKELETAL/EXTREMETIES Musculoskeletal/Extremeties: MAEW, Tender - Left posterior medial thigh tender to palpate no erythema no swelling no obvious deformity good pedal pulse. Course - Re-evaluation Re-evalutation: 12/11/18 13:48 This 58-year-old female presents the emergency department with left thigh pain post vacuuming. Reports that she felt a rip in the back of her thigh. Ultrasound is negative for tear. Patient was instructed on ice Justo wrap Motrin for the pain. She was also instructed to follow-up with her primary care provider for continued pain. Neg US. Justo wrap ordered. Patient requesting crutches upon discharge crutches provided. Dictation of this chart was performed using voice recognition software; therefore, there may be some unintended grammatical errors. Extremity Ultrasound 12/11/18 12:17 IMPRESSION: Limited ultrasound evaluation of the left posterior thigh without focal collection, mass or other appreciable abnormality. pt reports justo wrap and crutches made her feel much better. - Vital Signs Vital signs: Temp Pulse Resp BP Pulse Ox 98 F 89 18 134/71 H 96 12/11/18 12:06 12/11/18 12:06 12/11/18 12:06 12/11/18 12:06 12/11/18 12:06 - Diagnostic Test Radiology reviewed: Image reviewed, Reports reviewed Procedures - Immobilization Left Thigh Pre-Proc Neuro Vasc Exam: Normal Immobilizer type: Justo wrap Performed by: PCT Post-Proc Neuro Vasc Exam: Unchanged from pre-exam Alignment checked and good: Yes Discharge - Discharge Clinical Impression: Left thigh pain Condition: Stable Disposition: HOME, SELF-CARE Instructions: Justo Wrap ([facility]), Use of [id number] Ibuprofen ([facility]), Ice & Elevation ([facility]) Additional Instructions: *You have been evaluated for left thigh pain *Maintain the justo wrap for comfort *Rest/Ice/Elevate *Follow up with your primary care provider for recheck within 1 week *Take Motrin as indicated *Return to ED for worsening condition, changes, needs Monitor your blood pressure. Your blood pressure was elevated today. This may be because you were anxious, in pain or because you need medication. It is important to follow up with your primary care provider for full evaluation. Forms: Elevated Blood Pressure
--- NOTE | 2018-12-11 13:29 | RADIOLOGY REPORT (SQ) ---
EXAM DESCRIPTION: U/S EXTREMITY NONVASCULAR LTD COMPLETED DATE/TIME: 12/11/2018 12:51 pm REASON FOR STUDY: PAIN- L posterior medial pain, ?muscle tear COMPARISON: None. TECHNIQUE: Dynamic and static grayscale images acquired of the localized site of clinical concern an d recorded on PACS. SITE OF CONCERN: Left posterior thigh LIMITATIONS: None. FINDINGS: SKIN AND SUBCUTANEOUS TISSUES: No masses. No fluid collections. No edema. No foreign laura s. DEEP SOFT TISSUES/MUSCLES: Limited visualization of the posterior thigh of musculature is unremarkabl e without focal lesion, hematoma or mass. Contralateral views for comparison appear symmetric. VASCULAR: No increased or decreased vascularity. \ OTHER: No other significant finding. IMPRESSION: Limited ultrasound evaluation of the left posterior thigh without focal collection, mass or other appreciable abnormality. TECHNICAL DOCUMENTATION: JOB ID: [id number] [employer] All Rights Reserved Reading location - IP/workstation name: [email or web address]
[2018-12-11 13:49] VITALS: BP 127/75
== END 2018-12-11 13:50 | disposition home or self-care (01) ==
LOC: ER 12:03
DX: M79.652 Pain in left thigh (principal)
CPT/HCPCS: 76882; 99283

== ENCOUNTER → 2018-12-24 | Outpatient (CLI) | payer OTHER ==
[2018-12-24 09:52] LABS: ABSOLUTE EOSINOPHILS # (AUTO) 0.2 10^3/uL (0.0-0.6); ABSOLUTE LYMPHOCYTES (AUTO) 2.2 10^3/uL (0.5-4.7); ABSOLUTE MONOCYTES (AUTO) 0.4 10^3/uL (0.1-1.4); ABSOLUTE NEUT (AUTO) 3.5 10^3/uL (1.7-8.2); BASOPHILS % (AUTO) 0.7 % (0-2); EOSINOPHILS % (AUTO) 2.7 % (0-6); HEMATOCRIT 38.7 % (36.0-47.0); HEMOGLOBIN 12.9 g/dL (12.0-15.5); LYMPHOCYTES % (AUTO) 35.1 % (13-45); MEAN CORPUSCULAR HEMOGLOBIN 27.7 pg (27.0-33.4); MEAN CORPUSCULAR HGB CONC 33.2 g/dL (32.0-36.0); MEAN CORPUSCULAR VOLUME 83 fl (80-97); MONOCYTES % (AUTO) 6.7 % (3-13); PLATELET COUNT 215 10^3/uL (150-450); RED BLOOD COUNT 4.64 10^6/uL (3.72-5.28); RED CELL DISTRIBUTION WIDTH 13.7 % (11.5-14.0); SEGMENTED NEUTROPHILS % (AUTO) 54.8 % (42-78); TOTAL CELLS COUNTED % (AUTO) 100 %; WHITE BLOOD COUNT 6.3 10^3/uL (4.0-10.5)
[2018-12-24 10:17] LABS: ALBUMIN 4.5 g/dL (3.5-5.0); ALKALINE PHOSPHATASE 88 U/L (38-126); ANION GAP 10 (5-19); ASPARTATE AMINO TRANSFERASE 17 U/L (14-36); BILIRUBIN,DIRECT 0.3 mg/dL (0.0-0.4); BILIRUBIN,TOTAL 0.6 mg/dL (0.2-1.3); BLOOD UREA NITROGEN 24 mg/dL (7-20); CALCIUM 9.3 mg/dL (8.4-10.2); CARBON DIOXIDE 26 mmol/L (22-30); CHLORIDE 104 mmol/L (98-107); CHOLESTEROL 229.36 mg/dL (0-200); GLUCOSE 137 mg/dL (75-110); POTASSIUM 4.7 mmol/L (3.6-5.0); TOTAL PROTEIN 7.5 g/dL (6.3-8.2); TRIGLYCERIDES 124 mg/dL (<150)
[2018-12-24 10:40] LABS: DIRECT LDL 136 mg/dL (<100)
== END ==
LOC: CCC 09:07
DX: E11.8 Type 2 diabetes mellitus with unspecified complications (principal); G47.33 Obstructive sleep apnea (adult) (pediatric)
CPT/HCPCS: 36415; 80053; 80061; 83036; 84443; 85025

== ENCOUNTER → 2019-01-12 | Outpatient (CLI) | payer OTHER ==
--- NOTE | 2019-01-12 10:50 | WOMENS IMAGING REPORT ---
EXAM DESCRIPTION: BILAT SCREENING MAMMO W/CAD COMPLETED DATE/TIME: 01/12/2019 9:37 am REASON FOR STUDY: Z12.31 SCREENING MAMMO Z12.31 ENCNTR SCREEN MAMMOGRAM FOR MALIGNANT NEOPLASM OF B RE COMPARISON: 2017 EXAM PARAMETERS: Standard craniocaudal and mediolateral oblique views of each breast recorded using digital acquisition. Read with the assistance of CAD. .[facility] - [employer] Relations Manager Version 9.2 LIMITATIONS: None. FINDINGS: No suspicious masses, suspicious calcifications or architectural distortion. No areas of c oncern. IMPRESSION: Negative MAMMOGRAM. BIRADS 1 BREAST DENSITY: b. There are scattered areas of fibroglandular density. BIRAD: ASSESSMENT: 1 NEGATIVE RECOMMENDATION: ROUTINE SCREENING COMMENT: The patient has been notified of the results by letter per MQSA requirements. Additional no tification policies are in place for contacting patient with suspicious or incomplete findings. Quality ID #[id number]: The [employer] recommends an annual screening mammogram for women aged 40 years or over. This facility utilizes a reminder system to ensure that all patients receive reminder letters, and/or direct phone calls for appointments. This includes reminders for routine scr eening mammograms, diagnostic mammograms, or other Breast Imaging Interventions when appropriate. Th is patient will be placed in the appropriate reminder system. TECHNICAL DOCUMENTATION: FINDING NUMBER: (1) ASSESSMENT: (1) JOB ID: [id number] [employer]- All Rights Reserved Reading location - IP/workstation name: [email or web address]
== END ==
LOC: WI 09:10
PROVIDERS: ATTEND Internal Medicine
DX: Z12.31 Encounter for screening mammogram for malignant neoplasm of breast (principal)
CPT/HCPCS: 77067

== ENCOUNTER → 2019-01-15 | Outpatient (CLI) | payer OTHER ==
[2019-01-16 12:16] LABS: ABSOLUTE EOSINOPHILS # (AUTO) 0.2 10^3/uL (0.0-0.6); ABSOLUTE LYMPHOCYTES (AUTO) 2.1 10^3/uL (0.5-4.7); ABSOLUTE MONOCYTES (AUTO) 0.4 10^3/uL (0.1-1.4); ABSOLUTE NEUT (AUTO) 3.1 10^3/uL (1.7-8.2); BASOPHILS % (AUTO) 0.4 % (0-2); EOSINOPHILS % (AUTO) 2.7 % (0-6); HEMATOCRIT 37.8 % (36.0-47.0); HEMOGLOBIN 12.8 g/dL (12.0-15.5); LYMPHOCYTES % (AUTO) 36.9 % (13-45); MEAN CORPUSCULAR HEMOGLOBIN 28.1 pg (27.0-33.4); MEAN CORPUSCULAR HGB CONC 33.7 g/dL (32.0-36.0); MEAN CORPUSCULAR VOLUME 83 fl (80-97); MONOCYTES % (AUTO) 6.7 % (3-13); PLATELET COUNT 218 10^3/uL (150-450); RED BLOOD COUNT 4.54 10^6/uL (3.72-5.28); RED CELL DISTRIBUTION WIDTH 13.3 % (11.5-14.0); SEGMENTED NEUTROPHILS % (AUTO) 53.3 % (42-78); TOTAL CELLS COUNTED % (AUTO) 100 %; WHITE BLOOD COUNT 5.8 10^3/uL (4.0-10.5)
[2019-01-16 12:24] LABS: ALBUMIN 4.5 g/dL (3.5-5.0); ALKALINE PHOSPHATASE 94 U/L (38-126); ANION GAP 10 (5-19); ASPARTATE AMINO TRANSFERASE 18 U/L (14-36); BILIRUBIN,DIRECT 0.1 mg/dL (0.0-0.4); BILIRUBIN,TOTAL 0.5 mg/dL (0.2-1.3); BLOOD UREA NITROGEN 20 mg/dL (7-20); CALCIUM 10.2 mg/dL (8.4-10.2); CARBON DIOXIDE 26 mmol/L (22-30); CHLORIDE 105 mmol/L (98-107); GLUCOSE 130 mg/dL (75-110); PHOSPHORUS 4.4 mg/dL (2.5-4.5); POTASSIUM 4.6 mmol/L (3.6-5.0); TOTAL PROTEIN 7.9 g/dL (6.3-8.2); TRIGLYCERIDES 82 mg/dL (<150)
[2019-01-16 12:35] LABS: DIRECT LDL 97 mg/dL (<100)
== END ==
LOC: CCC 13:01
DX: E11.8 Type 2 diabetes mellitus with unspecified complications (principal); G47.33 Obstructive sleep apnea (adult) (pediatric); M62.838 Other muscle spasm
CPT/HCPCS: 36415; 80053; 80061; 83036; 83735; 84100; 84443; 85025

== ENCOUNTER 2019-03-31 08:03 | Emergency (ER) | payer SELFPAY ==
--- NOTE | 2019-03-31 09:18 | ER Document Report ---
ED Oral Problem - General Chief Complaint: Toothache Stated Complaint: MOUTH PAIN Time Seen by Provider: 03/31/19 09:12 [facility] [Primary [facility] Provider] - Follow up as needed Mode of Arrival: Ambulatory Information source: Patient Notes: 58-year-old female presented to ED for dental pain to the top front tooth on the left. She states this started about a week ago. She states that a extra tooth caused her teeth to shift causing her pain and now she has some mild swelling and infection to the tooth. TRAVEL OUTSIDE OF THE [place] IN LAST 30 DAYS: No - HPI Patient complains to provider of: Toothache Onset: Last week Onset: Gradual Quality of pain: Achy, Sharp Severity: Moderate Pain Level: 4 Associated symptoms: Toothache Worsened by: Nothing Similar symptoms previously: Yes Recently seen / treated by doctor/dentist: No - Related Data Allergies/Adverse Reactions: No Known Allergies Allergy (Verified 03/31/19 08:09) Past Medical History - General Information source: Patient - Social History Smoking Status: Former Smoker Chew tobacco use (# tins/day): No Frequency of alcohol use: None Drug Abuse: None Lives with: Family Family History: Reviewed & Not Pertinent, Arthritis, CAD, CVA, DM, Hyperlipidemia, Hypertension, Malignancy Patient has suicidal ideation: No Patient has homicidal ideation: No - Past Medical History Cardiac Medical History: Reports: Hx Hypercholesterolemia Denies: Hx Congestive Heart Failure, Hx Heart Attack, Hx Hypertension Pulmonary Medical History: Reports: Hx Bronchitis, Hx Pneumonia Denies: Hx Asthma, Hx COPD, Hx Tuberculosis Neurological Medical History: Reports: Hx Cerebrovascular Accident - 1998, Hx Migraine. Denies: Hx Seizures, Hx Parkinson's Disease Endocrine Medical History: Reports: Hx Diabetes Mellitus Type 2 - pre-diabetic Renal/ Medical History: Reports: Hx Ectopic , Hx Ovarian Cysts. 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 - Immunizations Hx Diphtheria, Pertussis, Tetanus Vaccination: Yes - 2015 Review of Systems - Review of Systems Constitutional: No symptoms reported EENT: Nose discharge, Sinus discharge, Mouth swelling, Dental problem Cardiovascular: No symptoms reported Respiratory: No symptoms reported Gastrointestinal: No symptoms reported Genitourinary: No symptoms reported Female Genitourinary: No symptoms reported Musculoskeletal: No symptoms reported Skin: No symptoms reported Hematologic/Lymphatic: No symptoms reported Neurological/Psychological: No symptoms reported -: Yes All other systems reviewed and negative Physical Exam - Vital signs Vitals: Temp Pulse Resp BP Pulse Ox 97.6 F 81 18 148/77 H 97 03/31/19 08:09 03/31/19 08:09 03/31/19 08:09 03/31/19 08:09 03/31/19 08:09 Interpretation: Normal - General General appearance: Appears well, Alert - HEENT Head: Normocephalic, Atraumatic Eyes: Normal Pupils: PERRL Ears: Normal External canal: Normal Tympanic membrane: Normal Sinus: Normal Nasal: Normal Mouth/Lips: Caries Mucous membranes: Normal Teeth diagram: 1 - Extra tooth growing and causing the tooth decided to shift and causing a decay Pharynx: Normal Neck: Normal - Respiratory Respiratory status: No respiratory distress Chest status: Nontender Breath sounds: Normal Chest palpation: Normal - Cardiovascular Rhythm: Regular Heart sounds: Normal auscultation Murmur: No - Abdominal Inspection: Normal Distension: No distension Bowel sounds: Normal Tenderness: Nontender Organomegaly: No organomegaly - Back Back: Normal, Nontender - Extremities General upper extremity: Normal inspection, Nontender, Normal color, Normal ROM, Normal temperature General lower extremity: Normal inspection, Nontender, Normal color, Normal ROM, Normal temperature, Normal weight bearing. No: Mohini's sign - Neurological Neuro grossly intact: Yes Cognition: Normal Orientation: AAOx4 Susan Coma Scale Eye Opening: Spontaneous Susan Coma Scale Verbal: Oriented Lane Coma Scale Motor: Obeys Commands Susan Coma Scale Total: 15 Speech: Normal Motor strength normal: LUE, RUE, LLE, RLE Sensory: Normal - Psychological Associated symptoms: Normal affect, Normal mood - Skin Skin Temperature: Warm Skin Moisture: Dry Skin Color: Normal Course - Re-evaluation Re-evalutation: 03/31/19 09:22 Presentation is most consistent with likely an infected tooth. Airway is patent. Vitals within normal limits. Patient is able swallow without any difficulty. There is no significant facial swelling. No evidence of Vance angina, apical abscess, or airway obstruction. Patient will be started on antibiotics. I've instructed to follow-up with dentistry as earliest ability for definitive management. At this time will discharge with return precautions and follow-up recommendations. Verbal discharge instructions given a the bedside and opportunity for questions given. Medication warnings reviewed. Patient is in agreement with this plan and has verbalized understanding of return precautions and the need for primary care follow-up in the next 24-72 hours. - Vital Signs Vital signs: Temp Pulse Resp BP Pulse Ox 98.1 F 75 16 124/87 H 97 03/31/19 09:21 03/31/19 09:21 03/31/19 09:21 03/31/19 09:21 03/31/19 09:21 Discharge - Discharge Clinical Impression: Pain due to dental caries Condition: Stable Disposition: HOME, SELF-CARE Additional Instructions: TOOTHACHE: Your pain is due to dental decay. The tooth must be repaired in order for you to feel better. You will, therefore, be referred to a dentist. We do not have dentists on the staff at [facility]. Severe swelling or drainage around a tooth usually means a dental abscess. This also requires evaluation and treatment by the dentist, but antibiotics may be prescribed while awaiting dental treatment. You should be rechecked immediately if you develop major swelling of the face, increasing pain, a lump in the jaw or gums, headache, difficulty swa llowing, or fever. pain is under control, we encourage you to discard your unused narcotics. PENICILLIN V K: You have been given a prescription for Penicillin VK. Your physician has determined that this is the best antibiotic for your condition. Pen VK can be taken with meals, however more of the antibiotic gets into the bloodstream if it's taken on an empty stomach. Penicillin usually has no side effects. However, allergy to penicillins is common. If you have had an allergic reaction to any drug of the penicillin family, you should never take any other penicillin. Notify your doctor at once if you develop hives, itching, swelling, faintness, or shortness of breath. FOLLOW-UP CARE: You have been referred for follow-up care to the dentists listed below. Call the dentists office for an appointment as you were instructed or within the next two days. If you experience worsening or a significant change in your symptoms, notify the physician immediately or return to the Emergency Department at any time for re-evaluation. [facility] [address] [place] [address] [facility] [address] [facility] [address] [facility] [address] [facility] [email or web address] [address] [place] [address] Friday- 8:00am to 5:00 pm Will see patients from other [facility]. Charges based on income and family size and accepts Medicare, Medicaid, and Insurances Will pull molars [facility] [address] Hours of Operation 8:00 am - 4:30 pm weekdays The following dental offices accept Medicaid: [facility] Dr. Hanson Dr. Meza Dr. Trimble Dr. López Mike Lopez [place], and [facility] Dr. Corona ([place]) Dr. Wallace ([place]) [facility] Drs. Arcos and Yunior ([place]) Dr. Laurent ([place]) [facility] Dr. Humphries ([place]) Drs. Adame and ([place]) Medicaid Care Line Prescriptions: Penicillin V Potassium [Penicillin Vk 500 mg Tablet] 500 mg PO BID #20 tablet Forms: Elevated Blood Pressure Referrals: [facility] [Primary Care Provider] - Follow up as needed
[2019-03-31] MEDS ORDERED: PENICILLIN V POTASSIUM 500 MG TABLET PO ONE (09:21)
[2019-03-31 09:22] VITALS: BP 124/87
== END 2019-03-31 09:24 | disposition home or self-care (01) ==
LOC: ER 08:03
DX: K02.9 Dental caries, unspecified (principal); K00.1 Supernumerary teeth; K08.89 Other specified disorders of teeth and supporting structures; R09.89 Other specified symptoms and signs involving the circulatory and respiratory systems; Z87.891 Personal history of nicotine dependence
CPT/HCPCS: 99282

== ENCOUNTER 2019-05-02 14:45 | Emergency (ER) | payer SELFPAY ==
--- NOTE | 2019-05-02 15:19 | ER Document Report ---
ED Medical Screen (RME) - General Chief Complaint: Dizziness Stated Complaint: DIZZY/FEELS UNBALANCED/WEAK/CONFUSED Time Seen by Provider: 05/02/19 15:14 Primary Care Provider: [facility] [Primary Care Provider] - Follow up as needed TRAVEL OUTSIDE OF THE [place] IN LAST 30 DAYS: No - HPI Notes: 05/02/19 15:19 Patient is a 58-year-old female with a history of type 2 diabetes, previous CVA who presents complaining of feeling dizzy, left frontal headache, nauseous, having dyspnea on exertion, and feeling generally fatigued since yesterday. Patient states that her dizziness has been constant since yesterday. Denies drug allergies. She does not take blood thinners. Denies injury. No fever, chest pain. I have treated and performed a rapid initial assessment of this patient. A comprehensive ED assessment and evaluation of the patient, analysis of test results and completion of medical decision making process will be conducted by additional ED providers. Pt is outside of the stroke alert window if she is having or had a CVA. Minimal deficits otherwise on exam as noted below. PHYSICAL EXAMINATION: GENERAL: Well-appearing, well-nourished and in no acute distress. A&Ox4. Answers questions appropriately. HEAD: Atraumatic, normocephalic. Non-tender. EYES: Pupils equal round and reactive to light, extraocular movements intact, sclera anicteric, conjunctiva are normal. No nystagmus. ENT: Nares patent and without discharge. oropharynx clear without exudates. No tonsilar hypertrophy or erythema. Moist mucous membranes. NECK: Normal range of motion, supple without lymphadenopathy. No rigidity/meningismus. No midline tenderness. LUNGS: Breath sounds clear to auscultation bilaterally and equal. No wheezes rales or rhonchi. HEART: Regular rate and rhythm Musculoskeletal: Strength rt 5+/5. Left 4+/5 to arm/leg. Extremities: No cyanosis, clubbing, or edema b/l. Peripheral pulses 2+. Capillary refill less than 2 seconds. NEUROLOGICAL: GCS 15. Cranial nerves grossly intact. Normal speech. Pt has weakness on the left arm/leg vs the right as above. Sensation intact. Pronator drift negative otherwise. - Related Data Allergies/Adverse Reactions: No Known Allergies Allergy (Verified 05/02/19 15:12) Past Medical History - Past Medical History Cardiac Medical History: Reports: Hx Hypercholesterolemia Denies: Hx Congestive Heart Failure, Hx Heart Attack, Hx Hypertension Pulmonary Medical History: Reports: Hx Bronchitis, Hx Pneumonia Denies: Hx Asthma, Hx COPD, Hx Tuberculosis Neurological Medical History: Reports: Hx Cerebrovascular Accident - 1998, Hx Migraine. Denies: Hx Seizures, Hx Parkinson's Disease Endocrine Medical History: Reports: Hx Diabetes Mellitus Type 2 - pre-diabetic Renal/ Medical History: Reports: Hx Ectopic , Hx Ovarian Cysts. 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
[2019-05-02] MEDS ORDERED: MECLIZINE HCL 25 MG TABLET PO ONE (15:24)
[2019-05-02 16:14] LABS: ABSOLUTE BASOPHILS # (AUTO) 0.1 10^3/uL (0.0-0.2); ABSOLUTE EOSINOPHILS # (AUTO) 0.1 10^3/uL (0.0-0.6); ABSOLUTE LYMPHOCYTES (AUTO) 2.9 10^3/uL (0.5-4.7); ABSOLUTE MONOCYTES (AUTO) 0.7 10^3/uL (0.1-1.4); ABSOLUTE NEUT (AUTO) 1.5 10^3/uL (1.7-8.2); BASOPHILS % (AUTO) 1.1 % (0-2); EOSINOPHILS % (AUTO) 2.5 % (0-6); HEMATOCRIT 37.4 % (36.0-47.0); HEMOGLOBIN 12.7 g/dL (12.0-15.5); LYMPHOCYTES % (AUTO) 54.9 % (13-45); MEAN CORPUSCULAR HGB CONC 33.9 g/dL (32.0-36.0); MEAN CORPUSCULAR VOLUME 83 fl (80-97); MONOCYTES % (AUTO) 12.9 % (3-13); PLATELET COUNT 194 10^3/uL (150-450); RED BLOOD COUNT 4.53 10^6/uL (3.72-5.28); RED CELL DISTRIBUTION WIDTH 13.6 % (11.5-14.0); SEGMENTED NEUTROPHILS % (AUTO) 28.6 % (42-78); TOTAL CELLS COUNTED % (AUTO) 100 %; WHITE BLOOD COUNT 5.3 10^3/uL (4.0-10.5)
--- NOTE | 2019-05-02 16:25 | RADIOLOGY REPORT (SQ) ---
EXAM DESCRIPTION: CHEST 2 VIEWS COMPLETED DATE/TIME: 05/02/2019 4:12 pm REASON FOR STUDY: dizziness, DEL RIO COMPARISON: 11/09/2018 TECHNIQUE: Frontal and lateral radiographic views of the chest acquired. NUMBER OF VIEWS: Two view. LIMITATIONS: None. FINDINGS: LUNGS AND PLEURA: No pneumothorax. No consolidation or pleural effusion. MEDIASTINUM AND HILAR STRUCTURES: Stable. HEART AND VASCULAR STRUCTURES: Stable. BONES: No acute findings. HARDWARE: None in the chest. OTHER: No other significant finding. IMPRESSION: NO ACUTE FINDINGS. TECHNICAL DOCUMENTATION: JOB ID: [id number] [place]-72 2010 [employer]- All Rights Reserved Reading location - IP/workstation name: [email or web address]
[2019-05-02 16:34] LABS: ALBUMIN 4.1 g/dL (3.5-5.0); ALKALINE PHOSPHATASE 93 U/L (38-126); ANION GAP 14 (5-19); ASPARTATE AMINO TRANSFERASE 26 U/L (14-36); BILIRUBIN,DIRECT 0.3 mg/dL (0.0-0.4); BILIRUBIN,TOTAL 0.4 mg/dL (0.2-1.3); BLOOD UREA NITROGEN 14 mg/dL (7-20); CALCIUM 9.5 mg/dL (8.4-10.2); CARBON DIOXIDE 25 mmol/L (22-30); CHLORIDE 102 mmol/L (98-107); GLUCOSE 128 mg/dL (75-110); TOTAL PROTEIN 7.6 g/dL (6.3-8.2)
[2019-05-02 16:49] LABS: NT PRO BNP 41 pg/mL (<125); TROPONIN I < 0.012 ng/mL
--- NOTE | 2019-05-02 17:11 | RADIOLOGY REPORT (SQ) ---
EXAM DESCRIPTION: CT HEAD WITHOUT COMPLETED DATE/TIME: 05/02/2019 4:51 pm REASON FOR STUDY: dizziness COMPARISON: 11/09/2018 TECHNIQUE: Axial images acquired through the brain without intravenous contrast. Images reviewed wit h bone, brain and subdural windows. Images stored on PACS. All CT scanners at this facility use dose modulation, iterative reconstruction, and/or weight based d osing when appropriate to reduce radiation dose to as low as reasonably achievable (ALARA). [facility]: Dose Right [facility]: CareDose [facility]: Dose Right [facility]: Teradose 4D [facility]: Smart Donde RADIATION DOSE: CT Rad equipment meets quality standard of care and radiation dose reduction techniq ues were employed. CTDIvol: 53.2 mGy. DLP: 884 mGy-cm.. LIMITATIONS: None. FINDINGS: VENTRICLES: Normal size and contour. CEREBRUM: No masses. No hemorrhage. No midline shift. Age appropriate white matter. No evidence for a cute infarction. CEREBELLUM: No masses. No hemorrhage. No alteration of density. No evidence for acute infarction. EXTRA-AXIAL SPACES: No fluid collections. ORBITS AND GLOBE: No intra- or extraconal masses. Normal contour of globe without masses. CALVARIUM: No fracture. PARANASAL SINUSES: No fluid or mucosal thickening. SOFT TISSUES: No mass or hematoma. OTHER: No other significant finding. IMPRESSION: NO ACUTE INTRACRANIAL FINDINGS. EVIDENCE OF ACUTE STROKE: NO. TECHNICAL DOCUMENTATION: JOB ID: [id number] [place]-72 Quality ID # [id number]: Final reports with documentation of one or more dose reduction techniques (e.g., Au tomated exposure control, adjustment of the mA and/or kV according to patient size, use of iterative reconstruction technique) 2010 [employer]- All Rights Reserved Reading location - IP/workstation name: [email or web address]
[2019-05-02] MEDS ORDERED: RINGERS SOLUTION,LACTATED 1,000 ML IV ONE (17:21)
--- NOTE | 2019-05-02 17:24 | ER Document Report ---
ED General - General Chief Complaint: General Weakness Stated Complaint: DIZZY/FEELS UNBALANCED/WEAK/CONFUSED Time Seen by Provider: 05/02/19 15:14 Primary Care Provider: [facility] [Primary Care Provider] - Follow up in 3-5 days (If Symptoms are not improving) TRAVEL OUTSIDE OF THE [place] IN LAST 30 DAYS: No - HPI Notes: Patient presents with feeling off balance and feeling lightheaded and absence of any chest pain or shortness of breath. She states she has had a decreased appetite since [place] is able to eat but has not had as much tight as normal. No recent cough congestion. No recent sinus congestion. She does have a history of vertigo but she states that this feels different she feels lightheaded at rest and worse with walking around and feels like her balance is off. No recent falls that she is not on any blood thinners - Related Data Allergies/Adverse Reactions: No Known Allergies Allergy (Verified 05/02/19 15:12) Past Medical History - Social History Smoking Status: Former Smoker Chew tobacco use (# tins/day): No Frequency of alcohol use: None Drug Abuse: None Family History: Reviewed & Not Pertinent, Arthritis, CAD, CVA, DM, Hyperlipidemia, Hypertension, Malignancy Patient has suicidal ideation: No Patient has homicidal ideation: No - Past Medical History Cardiac Medical History: Reports: Hx Hypercholesterolemia Denies: Hx Congestive Heart Failure, Hx Heart Attack, Hx Hypertension Pulmonary Medical History: Reports: Hx Bronchitis, Hx Pneumonia Denies: Hx Asthma, Hx COPD, Hx Tuberculosis Neurological Medical History: Reports: Hx Cerebrovascular Accident - 1998, Hx Migraine. Denies: Hx Seizures, Hx Parkinson's Disease Endocrine Medical History: Reports: Hx Diabetes Mellitus Type 2 - pre-diabetic Renal/ Medical History: Reports: Hx Ectopic , Hx Ovarian Cysts. 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 - Immunizations Hx Diphtheria, Pertussis, Tetanus Vaccination: Yes - 2016 Review of Systems - Review of Systems Constitutional: No symptoms reported EENT: No symptoms reported Cardiovascular: No symptoms reported Respiratory: No symptoms reported Gastrointestinal: No symptoms reported Genitourinary: No symptoms reported Female Genitourinary: No symptoms reported Musculoskeletal: No symptoms reported Skin: No symptoms reported Hematologic/Lymphatic: No symptoms reported Neurological/Psychological: See HPI Physical Exam - Vital signs Vitals: Temp Pulse Resp BP Pulse Ox 97.8 F 88 18 150/78 H 94 05/02/19 14:54 05/02/19 14:54 05/02/19 14:54 05/02/19 14:54 05/02/19 14:54 - General General appearance: Appears well, Alert - HEENT Head: Normocephalic, Atraumatic Eyes: Normal Conjunctiva: Normal Cornea: Normal Pupils: PERRL - Respiratory Respiratory status: No respiratory distress Chest status: Nontender Breath sounds: Normal Chest palpation: Normal - Cardiovascular Rhythm: Regular Heart sounds: Normal auscultation Murmur: No - Abdominal Inspection: Normal Distension: No distension Bowel sounds: Normal - Back Back: Normal, Nontender - Neurological Neuro grossly intact: Yes Cognition: Normal Orientation: AAOx4 Speech: Normal Cranial nerves: Normal Cerebellar coordination: Normal Motor strength normal: LUE, RUE, LLE, RLE - Psychological Associated symptoms: Normal affect Course - Re-evaluation Re-evalutation: 05/02/19 17:[address] head within normal limits are nonsignificant. Will perform MRI brain to ensure no evidence of stroke in the emergency department. Fluids p rovided emergency department. Her dizziness is at rest as well as worse when she has movement. She does not have any chest pain at this time. No loss of consciousness 05/02/19 19:44 Negative MRI for acute infarct or subacute infarct. Discussed results with patient. Pending urinalysis at this time. Discussed providing Compazine for her history of vertigo and would also help with any headaches or nausea. I did discuss she should get plenty of fluids and rest and her symptoms were not improving in next 3 to 5 days for medical reevaluation. Patient understands and agrees with plan. 05/02/19 19:45 - Vital Signs Vital signs: Temp Pulse Resp BP Pulse Ox 97.8 F 88 15 144/69 H 92 05/02/19 14:54 05/02/19 14:54 05/02/19 18:02 05/02/19 18:02 05/02/19 16:01 - Laboratory Result Diagrams: 05/02/19 16:00 05/02/19 16:00 Laboratory results interpreted by me: 05/02/19 05/02/19 05/02/19 16:00 16:00 20:12 Lymph % (Auto) 54.9 H Absolute Neuts (auto) 1.5 L Seg Neutrophils % 28.6 L Glucose 128 H Urine Protein 30 H - Diagnostic Test Radiology reviewed: Reports reviewed - EKG Interpretation by Me Additional EKG results interpreted by me: 05/02/19 17:25 Time 1557 Rate of 90, normal sinus rhythm, normal axis and intervals no concerning ST depressions or elevations no significant change from 11/09/2018 Discharge - Discharge Clinical Impression: Dizziness Condition: Good Disposition: HOME, SELF-CARE Instructions: Antinausea Medication ([facility]), Dizziness ([facility]), Vertigo ([facility]) Prescriptions: Prochlorperazine Maleate [Compazine 10 mg Tablet] 10 mg PO ASDIR PRN #15 tablet PRN Reason: Referrals: [facility] [Primary [facility] Provider] - Follow up in 3-5 days (If Symptoms are not improving)
--- NOTE | 2019-05-02 19:02 | RADIOLOGY REPORT (SQ) ---
EXAM DESCRIPTION: MRI HEAD WITHOUT COMPLETED DATE/TIME: 05/02/2019 6:41 pm REASON FOR STUDY: dizzy, r/o stroke COMPARISON: 11/21/2017 TECHNIQUE: Multiplanar imaging includes non-contrasted T1, T2, FLAIR, and diffusion with ADC map seq uences. Images stored on PACS. LIMITATIONS: None. FINDINGS: ANATOMY: No anomalies. Normal vascular flow voids. Pituitary fossa normal. CSF SPACES: Normal in size and contour. No hemorrhage. CEREBRUM: Sulci and gyri normal in size and contour. Age-appropriate white matter signal on FLAIR im aging. No evidence of hemorrhage, mass, or extraaxial fluid collection. POSTERIOR FOSSA: No signal alteration. No hemorrhage. No edema, masses or mass effect. Internal joshua tory canals, cerebello-pontine angles, mastoids normal. DIFFUSION IMAGING: Negative for acute or sub-acute infarction. ORBITS: No masses. Globes normal. PARANASAL SINUSES: No fluid levels. Mucosa normal. OTHER: No other significant finding. IMPRESSION: Negative for acute or sub-acute infarction. EVIDENCE OF ACUTE STROKE: NO. TECHNICAL DOCUMENTATION: JOB ID: [id number] [place]-72 2010 [employer]- All Rights Reserved Reading location - IP/workstation name: [email or web address]
--- NOTE | 2019-05-02 19:29 | EKG REPORT ---
SEVERITY:- BORDERLINE ECG - SINUS RHYTHM CONSIDER [facility] OR POSTERIOR INFARCT : Confirmed by: Staci Rodriguez MD 02-May-2019 19:28:47
[2019-05-02 20:32] LABS: APPEARANCE,URINE CLEAR; BILIRUBIN,URINE NEGATIVE (NEGATIVE); COLOR,URINE YELLOW; GLUCOSE, URINE NEGATIVE (NEGATIVE); KETONES,URINE NEGATIVE (NEGATIVE); LEUKOCYTE ESTERASE,URINE NEGATIVE (NEGATIVE); NITRITE,URINE NEGATIVE (NEGATIVE); PROTEIN,URINE 30 mg/dL (NEGATIVE); URINE SPECIFIC GRAVITY 1.025; UROBILINOGEN,URINE NEGATIVE mg/dL (<2.0)
[2019-05-02 21:01] VITALS: BP 141/82
== END 2019-05-02 21:00 | disposition home or self-care (01) ==
LOC: ER 14:45
DX: R53.1 Weakness (principal); R42 Dizziness and giddiness; E78.00 Pure hypercholesterolemia, unspecified; Z86.73 Personal history of transient ischemic attack (TIA), and cerebral infarction without residual deficits; Z90.710 Acquired absence of both cervix and uterus
CPT/HCPCS: 93005; 99284; 96360; 36415; 83735; 85025; 80053; 81001; 84484; 83880; 70551; 71046; 70450; 93010; J7120

== ENCOUNTER → 2019-06-28 | Outpatient (CLI) | payer OTHER ==
--- NOTE | 2019-06-28 12:41 | RADIOLOGY REPORT (SQ) ---
EXAM DESCRIPTION: ANKLE LEFT AP/LATERAL COMPLETED DATE/TIME: 06/28/2019 11:02 am REASON FOR STUDY: PAIN IN LEFT ANKLE AND JOINTS OF LEFT FOOT M25.562 PAIN IN LEFT KNEE M25.561 YAMILETH N IN RIGHT KNEE M25.572 PAIN IN LEFT ANKLE AND JOINTS OF LEFT FOOT COMPARISON: None. NUMBER OF VIEWS: Three views. TECHNIQUE: AP and 2 lateral radiographic images acquired of the left ankle. LIMITATIONS: None. FINDINGS: MINERALIZATION: Normal. BONES: No acute fracture or dislocation. No worrisome bone lesions. JOINTS: No effusions. SOFT TISSUES: Lateral soft tissue swelling. OTHER: No other significant finding. IMPRESSION: Soft tissue swelling with no fracture. TECHNICAL DOCUMENTATION: JOB ID: [id number] 2011 [employer]- All Rights Reserved Reading location - IP/workstation name: [email or web address]
--- NOTE | 2019-06-28 12:42 | RADIOLOGY REPORT (SQ) ---
EXAM DESCRIPTION: KNEE LEFT 2 VIEWS COMPLETED DATE/TIME: 06/28/2019 11:02 am REASON FOR STUDY: PAIN IN LEFT KNEE M25.562 PAIN IN LEFT KNEE M25.561 PAIN IN RIGHT KNEE M25.572 PAIN IN LEFT ANKLE AND JOINTS OF LEFT FOOT COMPARISON: None. NUMBER OF VIEWS: Three views. TECHNIQUE: AP and 2 lateral radiographic images acquired of the left knee. LIMITATIONS: None. FINDINGS: MINERALIZATION: Normal. BONES: No acute fracture or dislocation. No worrisome bone lesions. JOINT: There is narrowing of the medial compartment with marginal osteophytes. Posterior patellar an d trochlear osteophytes are present. SOFT TISSUES: No soft tissue swelling. No radio-opaque foreign body. OTHER: No other significant finding. 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 No acute finding. TECHNICAL DOCUMENTATION: JOB ID: [id number] 2010 [employer]- All Rights Reserved Reading location - IP/workstation name: [email or web address]
== END ==
LOC: CCC 10:30
DX: M17.12 Unilateral primary osteoarthritis, left knee (principal); M25.562 Pain in left knee; M25.561 Pain in right knee; M25.572 Pain in left ankle and joints of left foot

== ENCOUNTER 2019-07-08 18:44 | Emergency (ER) | payer SELFPAY ==
[2019-07-08 19:35] VITALS: BP 121/71
[2019-07-08] MEDS ORDERED: PENICILLIN V POTASSIUM 500 MG TABLET PO ONE (19:38)
[2019-07-08] MEDS ORDERED: NAPROXEN 250 MG TABLET PO ONE (19:38)
--- NOTE | 2019-07-08 19:42 | ER Document Report ---
HPI - HPI Time Seen by Provider: 07/08/19 19:34 Pain Level: 3 Notes: CHIEF COMPLAINT: Dental pain for 1 month HPI: 58-year-old female presenting to the emergency department complaining of increasing dental pain to the left upper lateral incisor. States she has dental caries in this region and is worsened over the last month but in the last 2 to 3 days she has noticed increasing pain. No facial swelling or fever. ROS: See HPI - all other systems were reviewed and are otherwise negative Constitutional: no fever Eyes: no drainage, no blurred vision ENT: no runny nose, no sore throat, positive dental pain Integumentary: no rash MEDICATIONS: I agree with the patient medications as charted by the RN. ALLERGIES: I agree with the allergies as charted by the RN. PAST MEDICAL HISTORY/PAST SURGICAL HISTORY: Reviewed and agree as charted by RN. SOCIAL HISTORY: Reviewed and agree as charted by RN. FAMILY HISTORY: No significant familial comorbid conditions directly related to patient complaint EXAM: Reviewed vital signs as charted by RN. CONSTITUTIONAL: Alert and oriented and responds appropriately to questions. Well-appearing; well-nourished mild distress secondary to pain HEAD: Normocephalic; atraumatic EYES: PERRL; Conjunctivae clear, sclerae non-icteric ENT: normal nose; no rhinorrhea; moist mucous membranes; pharynx without lesions noted, no uvula edema or deviation, no tonsillar hypertrophy, phonation normal. Dental caries noted to the left upper lateral incisor. No gingival edema. No trismus. No sublingual swelling. No facial swelling. NECK: Supple without meningismus; non-tender; no cervical lymphadenopathy, no masses EXT: Normal ROM in all joints; no cyanosis, no effusions, no edema SKIN: Normal color for age and race; warm; dry; good turgor NEURO: Moves all extremities equally PSYCH: The patient's mood and manner are appropriate. Grooming and personal hygiene are appropriate. MDM: 58-year-old female with pain from dental caries. No visible abscess at this time but this is certainly also a possibility. Will place on antibiotics short course of pain medication follow-up dental - REPRODUCTIVE Reproductive: DENIES: : Past Medical History - Social History Smoking Status: Former Smoker Frequency of alcohol use: None Drug Abuse: None Family History: Reviewed & Not Pertinent, Arthritis, CAD, CVA, DM, Hyperlipidemia, Hypertension, Malignancy Patient has suicidal ideation: No Patient has homicidal ideation: No - Past Medical History Cardiac Medical History: Reports: Hx Hypercholesterolemia Denies: Hx Congestive Heart Failure, Hx Heart Attack, Hx Hypertension Pulmonary Medical History: Reports: Hx Bronchitis, Hx Pneumonia Denies: Hx Asthma, Hx COPD, Hx Tuberculosis Neurological Medical History: Reports: Hx Cerebrovascular Accident - 1998, Hx Migraine. Denies: Hx Seizures, Hx Parkinson's Disease Endocrine Medical History: Reports: Hx Diabetes Mellitus Type 2 - pre-diabetic Renal/ Medical History: Reports: Hx Ectopic , Hx Ovarian Cysts. 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 - Immunizations Hx Diphtheria, Pertussis, Tetanus Vaccination: Yes - 2016 Vertical Provider Document - INFECTION CONTROL TRAVEL OUTSIDE OF THE [place] IN LAST 30 DAYS: No Course - Vital Signs Vital signs: Temp Pulse Resp BP Pulse Ox 98.7 F 96 16 121/71 98 07/08/19 19:34 07/08/19 19:34 07/08/19 19:34 07/08/19 19:34 07/08/19 19:34 Discharge - Discharge Clinical Impression: Pain due to dental caries Condition: Stable Disposition: HOME, SELF-CARE Additional Instructions: Medications as prescribed no driving if taking narcotics for pain. Follow-up closely with a dentist for definitive management return for facial swelling or fever Prescriptions: Naproxen 500 mg PO BID PRN #14 tablet PRN Reason: Penicillin V Potassium [Penicillin Vk 500 mg Tablet] 500 mg PO BID #20 tablet Tramadol HCl [Ultram 50 mg Tablet] 50 mg PO Q6 PRN #12 tab PRN Reason: Referrals: [facility] [Primary Care Provider] - Follow up as needed
== END 2019-07-08 19:55 | disposition home or self-care (01) ==
LOC: ER 18:44
DX: K02.9 Dental caries, unspecified (principal); K08.89 Other specified disorders of teeth and supporting structures; Z87.891 Personal history of nicotine dependence
CPT/HCPCS: 99282

== ENCOUNTER 2019-08-03 04:01 | Emergency (ER) | payer SELFPAY ==
[2019-08-03] MEDS ORDERED: ONDANSETRON HCL INJ/PF 4 MG/2 ML SDV IV ONE (05:09)
[2019-08-03] MEDS ORDERED: MORPHINE SULFATE 10 MG/ML INJ IV ONE (05:09)
[2019-08-03] MEDS ORDERED: NORMAL SALINE 1000 ML 1,000 ML IV ONE (05:09)
--- NOTE | 2019-08-03 05:11 | ER Document Report ---
ED GI/ - General Chief Complaint: Abdominal Pain Stated Complaint: STOMACH PAIN Time Seen by Provider: 08/03/19 04:59 Primary Care Provider: [facility] [Provider Group] - Follow up in 1 week Notes: Patient is a 58-year-old female that comes to the emergency department for chief complaint of upper abdominal pain. This is been going on for over a week, last night was very sharp, she states that she could not eat without getting nauseated and she could not get comfortable. Last meal was dinner and very small. She denies vomiting, fever, flank pain, chest pain. She is moving her bowels which appear normal. She has had a hysterectomy, has a history of type 2 diabetes, hyperlipidemia, and has had a parathyroidectomy. She denies medical history otherwise, denies smoking, alcohol, recreational drugs. TRAVEL OUTSIDE OF THE [place] IN LAST 30 DAYS: No - Related Data Allergies/Adverse Reactions: No Known Allergies Allergy (Verified 07/08/19 19:29) Home Medications: HGH LIPIDS. DIABETIC Past Medical History - General Information source: Patient - Social History Smoking Status: Former Smoker Frequency of alcohol use: None Drug Abuse: None Lives with: Family Family History: Reviewed & Not Pertinent, Arthritis, CAD, CVA, DM, Hyperlipidemia, Hypertension, Malignancy Patient has suicidal ideation: No Patient has homicidal ideation: No - Past Medical History Cardiac Medical History: Reports: Hx Hypercholesterolemia Denies: Hx Congestive Heart Failure, Hx Heart Attack, Hx Hypertension Pulmonary Medical History: Reports: Hx Bronchitis, Hx Pneumonia Denies: Hx Asthma, Hx COPD, Hx Tuberculosis Neurological Medical History: Reports: Hx Cerebrovascular Accident - 1998, Hx Migraine. Denies: Hx Seizures, Hx Parkinson's Disease Endocrine Medical History: Reports: Hx Diabetes Mellitus Type 2 - pre-diabetic Renal/ Medical History: Reports: Hx Ectopic , Hx Ovarian Cysts. 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 - Immunizations Hx Diphtheria, Pertussis, Tetanus Vaccination: Yes - 2016 Review of Systems - Review of Systems Constitutional: See HPI EENT: No symptoms reported Cardiovascular: No symptoms reported Respiratory: No symptoms reported Gastrointestinal: See HPI Genitourinary: No symptoms reported Female Genitourinary: No symptoms reported Musculoskeletal: No symptoms reported Skin: No symptoms reported Hematologic/Lymphatic: No symptoms reported Neurological/Psychological: No symptoms reported Physical Exam - Vital signs Vitals: Temp Pulse BP Pulse Ox 98.5 F 95 141/80 H 96 08/03/19 04:07 08/03/19 04:07 08/03/19 04:07 08/03/19 04:07 - Notes Notes: GENERAL: Alert, interacts well. Anxious but not in distress HEAD: Normocephalic, atraumatic. EYES: Pupils equal, round, and reactive to light. Extraocular movements intact. ENT: Oral mucosa moist, tongue midline. Oropharynx unremarkable. Airway patent. NECK: Full range of motion. Supple. Trachea midline. No lymphadenopathy. LUNGS: Clear to auscultation bilaterally, no wheezes, rales, or rhonchi. No respiratory distress. Non-tender chest wall. HEART: Regular rate and rhythm. No murmur ABDOMEN: abdomen is tender in the mid to upper abdomen generally, seems worse in the epigastric area, lower abdomen is benign. No guarding or rigidity, bowel sounds are present. GENITOURINARY: Deferred EXTREMITIES: Moves all 4 extremities spontaneously. No edema, normal radial and dorsalis pedis pulses bilaterally. No cyanosis. BACK: no cervical, thoracic, lumbar midline tenderness. No saddle anesthesia, normal distal neurovascular exam. Moves all extremities in full range of motion. NEUROLOGICAL: Alert and oriented x3. Normal speech. Cranial nerves II through XII grossly intact. Strength 5/5 in all extremities. PSYCH: Patient appears and speaks somewhat anxiously SKIN: Warm, dry, normal turgor. No rashes or lesions noted. Course - Re-evaluation Re-evalutation: Patient appears somewhat anxious, she does have upper abdominal tenderness, no overt swelling or distention. Acute abdominal series is very unremarkable, especially compared to previous imaging. Ultrasound showing small possible polyp but no pericholecystic fluid, wall thickening, or obstruction. CBC, chemistry unremarkable, lipase unremarkable, troponin negative, EKG unremarkable, urinalysis showing elevated specific gravity but otherwise unre markable. I reevaluated patient's abdomen after IV fluids and pain medication, abdomen is completely soft and benign. Patient states that after she was given the pain medication she realized that she had been "extremely tensed up with anxiety" and this "let all of it out and I am finally relaxed". I did discuss small polyp and possible gallbladder as cause of her symptoms, I have lower suspicion of gastritis/esophagitis because patient essentially has no risk factors for this based on her lifestyle reportedly. I do suspect a possible underlying anxiety component of the abdominal pain however, I am not certain this is caused from gallbladder pain. Given p.o. trial. Beforehand patient did state that she used to be on Lexapro but no longer needed it until recently when she has started b ecome much more anxious given current pandemic and recent abdominal pain. 08/03/19 08:02 Patient tolerated p.o. without any difficulty. I had a long discussion with her. I have low suspicion of acute abdomen based on her very benign abdomen now, I suspect an anxiety component to her abdominal pain. Patient is not suicidal or homicidal. She states she feels safe at home with her . I did discuss this openly with patient, she states this is definitely a possibility. Decision was made for patient be discharged with Bentyl, Vistaril, and as needed medication for more severe pain and nausea, and if symptoms continue she can follow-up with the surgical clinic. If symptoms are severe or worsen she is to return to the emergency department. Patient states satisfaction and agreement with this plan. Stable and asymptomatic at time of discharge. - Vital Signs Vital signs: Temp Pulse Resp BP Pulse Ox 98.5 F 75 18 118/102 H 96 08/03/19 07:34 08/03/19 07:34 08/03/19 07:34 08/03/19 07:34 08/03/19 07:34 - Laboratory Result Diagrams: 08/03/19 05:25 08/03/19 05:25 Laboratory results interpreted by me: 08/03/19 08/03/19 05:25 07:00 BUN 21 H Glucose 156 H Urine Ascorbic Acid 40 H - EKG Interpretation by Me Additional EKG results interpreted by me: EKG sinus rhythm at a rate of 74, QTc 444, normal axis, no T wave inversions or ST segment changes in consecutive leads, machine reads as normal. Discharge - Discharge Clinical Impression: Anxiety Abdominal pain Qualifiers: Abdominal location: generalized Qualified Code(s): R10.84 - Generalized abdominal pain Condition: Stable Disposition: HOME, SELF-CARE Additional Instructions: Your work-up including your heart evaluation, general evaluation, and imaging are reassuring. You have been given rehydration. You have a small polyp in your gallbladder, however I am not certain the gallbladder is the cause of your pain. I recommend that you take the Bentyl for abdominal pain if needed, start with bland food and hydration and slowly progress. You can take Phenergan for nausea if needed. You also have Percocet if needed or stronger pain medicine only if needed, this can cause constipation and he may require an [id number] stool softener if you use this. You have also been prescribed Vistaril to take as needed for anxiety, these do not combine dangerously. I recommend a close primary care follow-up for additional evaluation and treatment of anxiety and abdominal pain. It is possible that you will need additional imaging such as a HIDA scan if your pain continues, it is possible that your underlying pain is from something called gallbladder dyskinesis. Return to the emergency department if you worsen including severe worsening pain, spiking fever, vomiting, black stools, or any other concerning symptoms. Prescriptions: Dicyclomine HCl [Bentyl 20 mg Tablet] 20 mg PO QID PRN #40 tablet PRN Reason: Oxycodone HCl/Acetaminophen [Percocet 5-325 mg Tablet] 1 - 2 tab PO TID PRN #15 tablet PRN Reason: Promethazine HCl [Phenergan 25 mg Tablet] 25 mg PO Q6H PRN #20 tablet PRN Reason: Hydroxyzine Pamoate [Vistaril 25 mg Capsule] 1 - 2 cap PO Q6 PRN #30 capsule PRN Reason: Referrals: [facility] [Provider Group] - Follow up in 1 week
[2019-08-03 05:43] LABS: ABSOLUTE EOSINOPHILS # (AUTO) 0.1 10^3/uL (0.0-0.6); ABSOLUTE MONOCYTES (AUTO) 0.4 10^3/uL (0.1-1.4); BASOPHILS % (AUTO) 0.5 % (0-2); EOSINOPHILS % (AUTO) 1.3 % (0-6); TOTAL CELLS COUNTED % (AUTO) 100 %
[2019-08-03 05:49] LABS: ABSOLUTE LYMPHOCYTES (AUTO) 1.9 10^3/uL (0.5-4.7); ABSOLUTE NEUT (AUTO) 4.5 10^3/uL (1.7-8.2); HEMATOCRIT 39.4 % (36.0-47.0); HEMOGLOBIN 13.6 g/dL (12.0-15.5); LYMPHOCYTES % (AUTO) 27.9 % (13-45); MEAN CORPUSCULAR HEMOGLOBIN 28.6 pg (27.0-33.4); MEAN CORPUSCULAR HGB CONC 34.5 g/dL (32.0-36.0); MEAN CORPUSCULAR VOLUME 83 fl (80-97); MONOCYTES % (AUTO) 6.4 % (3-13); PLATELET COUNT 227 10^3/uL (150-450); RED BLOOD COUNT 4.74 10^6/uL (3.72-5.28); RED CELL DISTRIBUTION WIDTH 13.7 % (11.5-14.0); SEGMENTED NEUTROPHILS % (AUTO) 63.9 % (42-78)
[2019-08-03 05:57] LABS: ALBUMIN 4.4 g/dL (3.5-5.0); ALKALINE PHOSPHATASE 90 U/L (38-126); ANION GAP 9 (5-19); ASPARTATE AMINO TRANSFERASE 21 U/L (14-36); BILIRUBIN,DIRECT 0.2 mg/dL (0.0-0.4); BILIRUBIN,TOTAL 0.5 mg/dL (0.2-1.3); BLOOD UREA NITROGEN 21 mg/dL (7-20); CALCIUM 9.3 mg/dL (8.4-10.2); CARBON DIOXIDE 27 mmol/L (22-30); CHLORIDE 103 mmol/L (98-107); GLUCOSE 156 mg/dL (75-110); TOTAL PROTEIN 7.8 g/dL (6.3-8.2)
--- NOTE | 2019-08-03 06:16 | RADIOLOGY REPORT (SQ) ---
EXAM DESCRIPTION: US ABDOMEN LIMITED COMPLETED DATE/TME: 08/03/2019 05:09 CLINICAL HISTORY: 58 years, Female, RUQ and epigastric pain, nausea COMPARISON: None. TECHNIQUE: Limited right upper quadrant ultrasound LIMITATIONS: None. FINDINGS: The liver is homogenous without focal lesion. No gallstones. The gallbladder is somewhat contracted. Echogenic, nonshadowing nonmobile focus adherent to the gallbladder wall could reflect small polyp. CBD measures 2.3 mm. Visualized right kidney, abdominal aorta, pancreas, inferior vena cava are unremarkable. No ascites IMPRESSION: Questionable small gallbladder polyp. Remainder is unremarkable copyright 2010 [employer] All Rights Reserved
--- NOTE | 2019-08-03 06:37 | RADIOLOGY REPORT (SQ) ---
EXAM DESCRIPTION: RadLex: XR ABDOMEN SUPINE AND ERECT WITH CHEST (ABD ACUTE SERIES) Views: 3 CLINICAL HISTORY: 58 years Female; abd pain and swelling; COMPARISON: CT 12/12/2017 FINDINGS: AP Chest: Lungs are clear without infiltrate, effusion, pneumothorax. Mediastinum is within normal limits for positioning. No acute bone findings. Supine and erect AP abdomen: Bowel gas pattern is normal, with no air-fluid levels or small bowel distention. No free intraperitoneal air. There are numerous pelvic phleboliths. Several calcifications also project over the left psoas muscle, indeterminate for ureteral versus vascular calcifications. However, these correspond to vascular calcifications seen on CT 12/12/2017. Psoas shadows are sharp. IMPRESSION: 1. No acute pulmonary findings 2. No acute abdominal findings
[2019-08-03 07:13] LABS: APPEARANCE,URINE SLIGHTLY-CLOUDY; BILIRUBIN,URINE NEGATIVE (NEGATIVE); COLOR,URINE YELLOW; GLUCOSE, URINE NEGATIVE (NEGATIVE); KETONES,URINE NEGATIVE (NEGATIVE); LEUKOCYTE ESTERASE,URINE NEGATIVE (NEGATIVE); NITRITE,URINE NEGATIVE (NEGATIVE); PROTEIN,URINE NEGATIVE (NEGATIVE); UROBILINOGEN,URINE NEGATIVE mg/dL (<2.0)
[2019-08-03] MEDS ORDERED: HYDROCODONE/ACETAMINOPHEN 5-325 MG (6 TAB/ER DISP) PO PRN (07:55)
[2019-08-03] MEDS ORDERED: ONDANSETRON ODT 4 MG TAB (6 TAB/ER DISP) PO PRN (07:55)
[2019-08-03 08:15] VITALS: BP 119/56
--- NOTE | 2019-08-03 09:24 | EKG REPORT ---
SEVERITY:- NORMAL ECG - SINUS RHYTHM : Confirmed by: Troy Carver 03-Aug-2019 09:23:52
== END 2019-08-03 08:15 | disposition home or self-care (01) ==
LOC: ER 04:01
DX: R10.84 Generalized abdominal pain (principal); F41.9 Anxiety disorder, unspecified; R11.0 Nausea; R10.816 Epigastric abdominal tenderness; E89.0 Postprocedural hypothyroidism; E78.5 Hyperlipidemia, unspecified; Z79.899 Other long term (current) drug therapy; Z90.710 Acquired absence of both cervix and uterus; Z87.891 Personal history of nicotine dependence
CPT/HCPCS: 93005; 99284; 96361; 96374; 96375; 36415; 83690; 85025; 80053; 81001; 84484; 74022; 76705; 93010; J2270; J2405; J7030

== ENCOUNTER 2019-09-21 14:06 | Emergency (ER) | payer SELFPAY ==
--- NOTE | 2019-09-21 14:35 | ER Document Report ---
ED Medical Screen (RME) - General Chief Complaint: Vaginal Pain Stated Complaint: VAGINAL PAIN Time Seen by Provider: 09/21/19 14:30 Primary Care Provider: [facility] [Primary Care Provider] - Follow up as needed Mode of Arrival: Ambulatory Information source: Patient Notes: 58-year-old female patient presented to the emergency department chief complaint of vaginal pain. Patient denies any abnormal discharge. She states that she thought maybe she had a yeast infection so she tried multiple bdyl-kwz-gypglau yeast medications without relief. She then tried taking some old antibiotics that she had for dental pain which also did not help. She is not sure if there is a rash that she cannot see the area. She reports she has a history of a total hysterectomy and has not been sexually active in 6 years. Exam deferred until patient is in a room. I have greeted and performed a rapid initial assessment of this patient. A comprehensive ED assessment and evaluation of the patient, analysis of test results and completion of the medical decision making process will be conducted by additional ED providers. I have specifically instructed the patient or family members with the patient to immediately return to any nursing staff should anything change in the patient's condition or with their chief complaint. TRAVEL OUTSIDE OF THE [place] IN LAST 30 DAYS: No - Related Data Allergies/Adverse Reactions: No Known Allergies Allergy (Verified 07/08/19 19:29) Past Medical History - Social History Frequency of alcohol use: None Drug Abuse: None - Past Medical History Cardiac Medical History: Reports: Hx Hypercholesterolemia Denies: Hx Congestive Heart Failure, Hx Heart Attack, Hx Hypertension Pulmonary Medical History: Reports: Hx Bronchitis, Hx Pneumonia Denies: Hx Asthma, Hx COPD, Hx Tuberculosis Neurological Medical History: Reports: Hx Cerebrovascular Accident - 1998, Hx Migraine. Denies: Hx Seizures, Hx Parkinson's Disease Endocrine Medical History: Reports: Hx Diabetes Mellitus Type 2 - pre-diabetic Renal/ Medical History: Reports: Hx Ectopic , Hx Ovarian Cysts. Denies: Hx End Stage Renal Disease, Hx Kidney Stones, Hx Peritoneal Dialysis GI Medical History: Denies: Hx Cirrhosis, Hx Gastroesophageal Reflux Disease, Hx Ulcer Musculoskeltal Medical History: Reports Hx Arthritis, Denies Hx Multiple Sclerosis Psychiatric Medical History: Reports: Hx Bipolar Disorder, Hx Depression - Medication free x 4 years Denies: Hx Schizophrenia Past Surgical History: Reports: Hx Gynecologic Surgery - ectopic, Hx Hysterectom y, 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 - Immunizations Hx Diphtheria, Pertussis, Tetanus Vaccination: Yes - 2015 Physical Exam - Vital signs Vitals: Temp Pulse Resp BP Pulse Ox 98.3 F 114 H 16 137/78 H 94 09/21/19 14:07 09/21/19 14:07 09/21/19 14:07 09/21/19 14:07 09/21/19 14:07 Course - Vital Signs Vital signs: Temp Pulse Resp BP Pulse Ox 98.3 F 114 H 16 137/78 H 94 09/21/19 14:29 09/21/19 14:07 09/21/19 14:07 09/21/19 14:07 09/21/19 14:07 Doctor's Discharge - Discharge Referrals: [facility] [Primary Care Provider] - Follow up as needed
[2019-09-21 15:05] LABS: APPEARANCE,URINE CLOUDY; BILIRUBIN,URINE NEGATIVE (NEGATIVE); COLOR,URINE DARK YELLOW; GLUCOSE, URINE NEGATIVE (NEGATIVE); KETONES,URINE TRACE mg/dL (NEGATIVE); LEUKOCYTE ESTERASE,URINE TRACE (NEGATIVE); NITRITE,URINE NEGATIVE (NEGATIVE); PROTEIN,URINE 100 mg/dL (NEGATIVE); URINE SPECIFIC GRAVITY 1.027
--- NOTE | 2019-09-21 18:18 | ER Document Report ---
ED General - General Chief Complaint: Vaginal Pain Stated Complaint: VAGINAL PAIN Time Seen by Provider: 09/21/19 14:30 Primary Care Provider: [facility] [Primary Care Provider] - Follow up as needed Mode of Arrival: Ambulatory TRAVEL OUTSIDE OF THE [place] IN LAST 30 DAYS: No - HPI Notes: Patient is a 58-year-old female with a history of diabetes, hyperlipidemia, who presents to the emergency department for evaluation of vaginal pain and burning. She states is been ongoing for about a month. She states she was started on a new medication for her stomach about a month ago through the emergency department. She thought maybe that was the culprit. She stopped that and her burning persisted. She states she thought maybe it was a yeast infection. She tried multiple [id number] modalities, including external creams. She then started reading on the Internet, found that certain antibiotics might be helpful. She had random leftover clindamycin, random leftover Augmentin, and tried multiple doses of each of those medications. She states that now her symptoms are all worse. She denies any foul odor. No discharge. She states she is unsure as to whether or not she has a rash, as she states she is unable to visualize the area. She is not currently sexually active. She has had a total hysterectomy in the past. - Related Data Allergies/Adverse Reactions: No Known Allergies Allergy (Verified 07/08/19 19:29) Past Medical History - General Information source: Patient - Social History Smoking Status: Never Smoker Frequency of alcohol use: None Drug Abuse: None Family History: Reviewed & Not Pertinent, Arthritis, CAD, CVA, DM, Hyperlipidemia, Hypertension, Malignancy Patient has homicidal ideation: No - Past Medical History Cardiac Medical History: Reports: Hx Hypercholesterolemia Denies: Hx Congestive Heart Failure, Hx Heart Attack, Hx Hypertension Pulmonary Medical History: Reports: Hx Bronchitis, Hx Pneumonia Denies: Hx Asthma, Hx COPD, Hx Tuberculosis Neurological Medical History: Reports: Hx Cerebrovascular Accident - 1998, Hx Migraine. Denies: Hx Seizures, Hx Parkinson's Disease Endocrine Medical History: Reports: Hx Diabetes Mellitus Type 2 Renal/ Medical History: Reports: Hx Ectopic , Hx Ovarian Cysts. Denies: Hx End Stage Renal Disease, Hx Kidney Stones, Hx Peritoneal Dialysis GI Medical History: Denies: Hx Cirrhosis, Hx Gastroesophageal Reflux Disease, Hx Ulcer Musculoskeletal Medical History: Reports Hx Arthritis, Denies Hx Multiple Sc lerosis Psychiatric Medical History: Reports: Hx Bipolar Disorder, Hx Depression - Medication free x 4 years Denies: Hx Schizophrenia Past Surgical History: Reports: Hx Gynecologic Surgery - ectopic, Hx Hysterectomy, 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 - Immunizations Hx Diphtheria, Pertussis, Tetanus Vaccination: Yes - 2015 Review of Systems - Review of Systems Female Genitourinary: See HPI -: Yes All other systems reviewed and negative Physical Exam - Vital signs Vitals: Temp Pulse Resp BP Pulse Ox 98.3 F 114 H 16 137/78 H 94 09/21/19 14:07 09/21/19 14:07 09/21/19 14:07 09/21/19 14:07 09/21/19 14:07 - Notes Notes: Vital signs reviewed, please refer to chart. Head is normocephalic, atraumatic. Pupils equal round, reactive to light. Neck is supple without meningismus. Heart is regular rate and rhythm. Lungs are clear to auscultation bilaterally. Abdomen is soft, nontender, normoactive bowel sounds throughout. Extremities without cyanosis, clubbing. Posterior calves are nontender. Peripheral pulses are equal. Skin is warm and dry. Patient is awake, alert, neurological exam is nonfocal. Pelvic exam was performed with PATRICIA Pappas, present in the room. Normal external genitalia. Normal hair distribution. No obvious external lesions. No significant erythema. Patient is tender to palpation at the entrance to the vagina, but I cannot associate any lesions at this. She is status post hysterectomy. Vaginal cuff is mildly erythematous, but no discharge noted. Course - Re-evaluation Re-evalutation: 09/21/19 18:18 Patient presents to the emergency department for evaluation of vaginal itching and burning. Awaiting pelvic exam set up. Otherwise urinalysis is largely unremarkable. Patient is stable, we will continue to monitor. 09/21/19 19:19 I still not have a clear etiology for this patient's pain. Awaiting wet mount. Patient is stable at this time. 09/21/19 20:00 Patient's wet prep does show 3+ bacteria. Her symptoms are not consistent with bacterial vaginosis, but the patient would like to try treatment to see if this helps her with her pain. I explained her I still believe she needs [facility] follow-up, and she voiced understanding. She was given her first dose of Flagyl here. She understands that she cannot have alcohol while taking this medication. She is to follow-up with Dr. Maxwell, return to the ED with worsening or new concerning symptoms of any sort. - Vital Signs Vital signs: Temp Pulse Resp BP Pulse Ox 98.3 F 114 H 16 137/78 H 94 09/21/19 14:29 09/21/19 14:07 09/21/19 14:07 09/21/19 14:07 09/21/19 14:07 - Laboratory Laboratory results interpreted by me: 09/21/19 14:36 Urine Protein 100 H Urine Ketones TRACE H Urine Urobilinogen 2.0 H Ur Leukocyte Esterase TRACE H Discharge - Discharge Clinical Impression: Vaginal pain, Bacterial vaginitis Condition: Stable Disposition: HOME, SELF-CARE Instructions: Vaginosis, Bacterial ([facility]), Vaginitis ([facility]) Additional Instructions: Take the antibiotic as prescribed until it is gone. Please follow-up with [facility] as discussed. Avoid alcohol while taking the Flagyl. Tylenol or sitz bath as needed for pain. Return to the emergency department with worsening or new concerning symptoms of any sort. [facility]errals: [facility] [Primary Care Provider] - Follow up as needed
[2019-09-21 19:23] LABS: BACTERIA (WET MOUNT) 3+ BACTERIA SEEN; EPITHELIALS (WET MOUNT) 3+ EPITHELIALS SEEN; RBCS (WET MOUNT) RARE RBCS SEEN; T.VAGINALIS (WET MOUNT) NO TRICHOMONAS SEEN; WBCS (WET MOUNT) 2+ WBCS SEEN; YEAST (WET MOUNT) NO YEAST SEEN
[2019-09-21] MEDS ORDERED: METRONIDAZOLE 500 MG TABLET PO ONE (20:00)
[2019-09-21 20:26] VITALS: BP 131/78
== END 2019-09-21 20:25 | disposition home or self-care (01) ==
LOC: ER 14:06
DX: N76.0 Acute vaginitis (principal); B96.89 Other specified bacterial agents as the cause of diseases classified elsewhere; R10.2 Pelvic and perineal pain; E78.00 Pure hypercholesterolemia, unspecified; E11.9 Type 2 diabetes mellitus without complications
CPT/HCPCS: 81001; 87086; 87210; 99283

== ENCOUNTER 2019-09-25 09:47 | Emergency (ER) | payer SELFPAY ==
[2019-09-25] MEDS ORDERED: PHENAZOPYRIDINE HCL 200 MG TABLET PO ONE (09:57)
--- NOTE | 2019-09-25 10:00 | ER Document Report ---
ED Medical Screen (RME) - General Chief Complaint: Pain With Urination Stated Complaint: PAINFUL URINATION Time Seen by Provider: 09/25/19 09:49 Primary Care Provider: [facility] [Primary Care Provider] - Follow up as needed Mode of Arrival: Ambulatory Information source: Patient Notes: 58-year-old female with history of diabetes returns to the emergency department for complaints of vaginal irritation urinary frequency and burning. Patient reports she was evaluated and treated Friday for same symptoms. She reports she was placed on Flagyl. She has been taking medications as prescribed. She reports that the vaginal irritation the burning and the frequency have increased. Patient reports that she was woken out of her sleep last night due to the pain. She took extra strength Tylenol and that did help. She denies fever vomiting diarrhea. She denies vaginal discharge. Reports she has not been sexually active for approximately 6 years. Patient reports she does not have insurance. She goes to the [facility]. She did attempt to contact an INTEGRATION SOLUTION ARCHITECT without success. Patient complains of bladder pressure. I have greeted and performed a rapid initial assessment of this patient. A comprehensive ED assessment and evaluation of the patient, analysis of test results and completion of the medical decision making process will be conducted by additional ED providers. TRAVEL OUTSIDE OF THE [place] IN LAST 30 DAYS: No - Related Data Allergies/Adverse Reactions: No Known Allergies Allergy (Verified 07/08/19 19:29) Past Medical History - Past Medical History Cardiac Medical History: Reports: Hx Hypercholesterolemia Denies: Hx Congestive Heart Failure, Hx Heart Attack, Hx Hypertension Pulmonary Medical History: Reports: Hx Bronchitis, Hx Pneumonia Denies: Hx Asthma, Hx COPD, Hx Tuberculosis Neurological Medical History: Reports: Hx Cerebrovascular Accident - 1998, Hx Migraine. Denies: Hx Seizures, Hx Parkinson's Disease Endocrine Medical History: Reports: Hx Diabetes Mellitus Type 2 Renal/ Medical History: Reports: Hx Ectopic , Hx Ovarian Cysts. 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
[2019-09-25 10:15] LABS: APPEARANCE,URINE SLIGHTLY-CLOUDY; BILIRUBIN,URINE NEGATIVE (NEGATIVE); COLOR,URINE YELLOW; GLUCOSE, URINE NEGATIVE (NEGATIVE); KETONES,URINE NEGATIVE (NEGATIVE); LEUKOCYTE ESTERASE,URINE SMALL (NEGATIVE); NITRITE,URINE NEGATIVE (NEGATIVE); PROTEIN,URINE NEGATIVE (NEGATIVE); URINE SPECIFIC GRAVITY 1.026
--- NOTE | 2019-09-25 11:37 | ER Document Report ---
ED GI/ - General Chief Complaint: Urinary Problem Stated Complaint: PAINFUL URINATION Time Seen by Provider: 09/25/19 09:49 Primary Care Provider: [facility] [NO LOCAL MD] - Follow up as needed Mode of Arrival: Ambulatory Information source: Patient Notes: 58-year-old female past medical history significant for diabetes, hyperlipidemia presents to the emergency room with persistent vaginal burning for the past week. States she was seen here on 519 and diagnosed with bacterial vaginosis was discharged home on Flagyl which she states she is been taking without relief. Attempted to get an appointment with a dry talc racker but she needs to apply for Medicaid first. Denies discharge. Not sexually active in 6 years. Status post hysterectomy. Recently started on BuSpar for depression. Denies any abdominal pain, nausea, vomiting, no urinary symptoms TRAVEL OUTSIDE OF THE [place] IN LAST 30 DAYS: No - Related Data Allergies/Adverse Reactions: No Known Allergies Allergy (Verified 07/08/19 19:29) Past Medical History - General Information source: Patient - Social History Smoking Status: Former Smoker Frequency of alcohol use: None Drug Abuse: None Family History: Reviewed & Not Pertinent, Arthritis, CAD, CVA, DM, Hyperlipidemia, Hypertension, Malignancy Patient has homicidal ideation: No - Past Medical History Cardiac Medical History: Reports: Hx Hypercholesterolemia Denies: Hx Congestive Heart Failure, Hx Heart Attack, Hx Hypertension Pulmonary Medical History: Reports: Hx Bronchitis, Hx Pneumonia Denies: Hx Asthma, Hx COPD, Hx Tuberculosis Neurological Medical History: Reports: Hx Cerebrovascular Accident - 1998, Hx Migraine. Denies: Hx Seizures, Hx Parkinson's Disease Endocrine Medical History: Reports: Hx Diabetes Mellitus Type 2 Renal/ Medical History: Reports: Hx Ectopic , Hx Ovarian Cysts. 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 - Immunizations Hx Diphtheria, Pertussis, Tetanus Vaccination: Yes - 2016 Review of Systems - Review of Systems Constitutional: No symptoms reported EENT: No symptoms reported Cardiovascular: No symptoms reported Respiratory: No symptoms reported Gastrointestinal: No symptoms reported, Diarrhea, Vomiting Genitourinary: Urgency Female Genitourinary: Other - Vaginal burning Skin: No symptoms reported Neurological/Psychological: No symptoms reported -: Yes All other systems reviewed and negative Physical Exam - Vital signs Vitals: Temp Pulse Resp BP Pulse Ox 98.8 F 111 H 18 122/80 93 09/25/19 09:52 09/25/19 09:52 09/25/19 09:52 09/25/19 09:52 09/25/19 09:52 - General General appearance: Appears well, Alert In distress: Mild - Respiratory Respiratory status: No respiratory distress Chest status: Nontender Breath sounds: Normal Chest palpation: Normal - Cardiovascular Rhythm: Tachycardia Heart sounds: Normal auscultation Murmur: No - Abdominal Inspection: Normal Distension: No distension Bowel sounds: Normal Tenderness: Nontender Organomegaly: No organomegaly - Genitourinary External exam: Normal Speculum exam: Normal Vaginal bleeding: None 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 No lesions, no rash noted. - Back Back: Normal, Nontender. No: CVA tenderness - Neurological Neuro grossly intact: Yes Cognition: Normal Orientation: AAOx4 Susan Coma Scale Eye Opening: Spontaneous Susan Coma Scale Verbal: Oriented Drums Coma Scale Motor: Obeys Commands Susan Coma Scale Total: 15 Speech: Normal Motor strength normal: LUE, RUE, LLE, RLE Sensory: Normal - Skin Skin Temperature: Warm Skin Moisture: Dry Skin Color: Normal Course - Re-evaluation Re-evalutation: 09/25/19 11:53 Patient is resting comfortably states the burning has improved after taking the Pyridium. Reviewed lab results with patient. Aware that her bacterial vaginosis has not improved will stop the Flagyl and prescribed clindamycin vaginal cream. She was counseled on the need to follow-up outpatient with dry talc racker. On-call physician was provided. She was given strict return to the emergency room guidelines. She is to return for any new or worsening symptoms. All questions were answered. Patient verbalizes understanding and agrees with plan of care. - Vital Signs Vital signs: Temp Pulse Resp BP Pulse Ox 98.8 F 111 H 18 122/80 93 09/25/19 10:14 09/25/19 09:52 09/25/19 09:52 09/25/19 09:52 09/25/19 09:52 - Laboratory Laboratory results interpreted by me: 09/25/19 10:00 Urine Urobilinogen 2.0 H Ur Leukocyte Esterase SMALL H Discharge - Discharge Clinical Impression: Bacterial vaginosis, Vaginal pain Condition: Stable Disposition: HOME, SELF-CARE Additional Instructions: Stop the Flagyl use clindamycin cream as directed. Pyridium as needed. Outpatient follow-up with gynecology as discussed. Prescriptions: Clindamycin Phosphate [Cleocin] 40 gm VG QHS 7 Days #7 cream.appl Phenazopyridine HCl [Pyridium 200 mg Tablet] 200 mg PO TID 2 Days #6 tablet [facility]: [facility] [NO LOCAL MD] - Follow up as needed
[2019-09-25 11:42] LABS: BACTERIA (WET MOUNT) 3+ BACTERIA SEEN; EPITHELIALS (WET MOUNT) 3+ EPITHELIALS SEEN; RBCS (WET MOUNT) RARE RBCS SEEN; T.VAGINALIS (WET MOUNT) NO TRICHOMONAS SEEN; WBCS (WET MOUNT) 3+ WBCS SEEN; YEAST (WET MOUNT) NO YEAST SEEN
[2019-09-25 12:13] VITALS: BP 119/75
== END 2019-09-25 12:13 | disposition home or self-care (01) ==
LOC: ER 09:47
DX: N76.0 Acute vaginitis (principal); B96.89 Other specified bacterial agents as the cause of diseases classified elsewhere; R10.2 Pelvic and perineal pain; R39.15 Urgency of urination; R00.0 Tachycardia, unspecified; E11.9 Type 2 diabetes mellitus without complications; F32.9 Major depressive disorder, single episode, unspecified; Z90.710 Acquired absence of both cervix and uterus; Z87.891 Personal history of nicotine dependence
CPT/HCPCS: 99283; 87086; 87210; 87088; 81001; J3490

== ENCOUNTER 2019-10-08 07:45 | Emergency (ER) | payer SELFPAY ==
[2019-10-08 07:56] VITALS: BP 115/82
[2019-10-08 11:13] LABS: ABSOLUTE EOSINOPHILS # (AUTO) 0.1 10^3/uL (0.0-0.6); ABSOLUTE LYMPHOCYTES (AUTO) 1.7 10^3/uL (0.5-4.7); ABSOLUTE MONOCYTES (AUTO) 0.5 10^3/uL (0.1-1.4); ABSOLUTE NEUT (AUTO) 2.7 10^3/uL (1.7-8.2); BASOPHILS % (AUTO) 0.4 % (0-2); EOSINOPHILS % (AUTO) 1.6 % (0-6); HEMATOCRIT 38.7 % (36.0-47.0); LYMPHOCYTES % (AUTO) 34.1 % (13-45); MEAN CORPUSCULAR HEMOGLOBIN 28.5 pg (27.0-33.4); MEAN CORPUSCULAR HGB CONC 33.6 g/dL (32.0-36.0); MEAN CORPUSCULAR VOLUME 85 fl (80-97); MONOCYTES % (AUTO) 9.9 % (3-13); PLATELET COUNT 213 10^3/uL (150-450); RED BLOOD COUNT 4.57 10^6/uL (3.72-5.28); RED CELL DISTRIBUTION WIDTH 14.2 % (11.5-14.0); TOTAL CELLS COUNTED % (AUTO) 100 %; WHITE BLOOD COUNT 5.1 10^3/uL (4.0-10.5)
[2019-10-08 11:32] LABS: ANION GAP 6 (5-19); BLOOD UREA NITROGEN 20 mg/dL (7-20); CALCIUM 9.6 mg/dL (8.4-10.2); CARBON DIOXIDE 30 mmol/L (22-30); CHLORIDE 103 mmol/L (98-107); GLUCOSE 142 mg/dL (75-110); POTASSIUM 4.3 mmol/L (3.6-5.0)
--- NOTE | 2019-10-08 12:26 | ER Document Report ---
Entered by YOLI PEARCE SCRIBE 10/08/19 1003 Acting as scribe for:ARINA CARPENTER MD ED General - General Chief Complaint: Mouth Problem Stated Complaint: TONGUE PROBLEM Information source: Patient Notes: This 58-year-old female presents to the emergency department complaining of a mouth problem that began 11 days ago. Patient describes that 2 weeks ago, she bit her tongue while she was sleeping. Patient said that then after Memorial Day, she noticed a small bump on her tongue. Patient explained that she noticed it spreading throughout her mouth. She had an appointment with her physician who prescribed Magic Mouthwash. Patient said that after using the mouthwash three times a day, she noticed her symptoms worsened. Patient states that she reported to the emergency department today because she has been "clearing her throat more", saw spots on her throat and was worried about the worsening condition. Patient denies fever, chills, postnasal drip, difficulty swallowing and throat pain. TRAVEL OUTSIDE OF THE [place] IN LAST 30 DAYS: No - Related Data Allergies/Adverse Reactions: No Known Allergies Allergy (Verified 10/08/19 08:01) Past Medical History - General Information source: Patient - Social History Smoking Status: Never Smoker Cigarette use (# per day): No Chew tobacco use (# tins/day): No Frequency of alcohol use: None Drug Abuse: None Family History: Reviewed & Not Pertinent, Arthritis, CAD, CVA, DM, Hyperlipidemia, Hypertension, Malignancy Patient has homicidal ideation: No - Past Medical History Cardiac Medical History: Reports: Hx Hypercholesterolemia Pulmonary Medical History: Reports: Hx Bronchitis, Hx Pneumonia Neurological Medical History: Reports: Hx Cerebrovascular Accident - 1998, Hx Migraine Endocrine Medical History: Reports: Hx Diabetes Mellitus Type 2 Renal/ Medical History: Reports: Hx Ectopic , Hx Ovarian Cysts Musculoskeletal Medical History: Reports Hx Arthritis Psychiatric Medical History: Reports: Hx Bipolar Disorder, Hx Depression - Medication free x 4 years Past Surgical History: Reports: Hx Gynecologic Surgery - ectopic, Hx Hysterectomy, 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 denies: Chills, Fever EENT: See HPI, Other - Bumps on Tongue. denies: Nose discharge, Throat pain, Difficulty swallowing Cardiovascular: No symptoms reported Respiratory: No symptoms reported Gastrointestinal: No symptoms reported Genitourinary: No symptoms reported Female Genitourinary: No symptoms reported Musculoskeletal: No symptoms reported Skin: No symptoms reported Hematologic/Lymphatic: No symptoms reported Neurological/Psychological: No symptoms reported -: Yes All other systems reviewed and negative Physical Exam - Vital signs Vitals: Temp Pulse Resp BP Pulse Ox 98.4 F 94 16 115/82 95 10/08/19 07:54 10/08/19 07:54 10/08/19 07:54 10/08/19 07:54 10/08/19 07:54 - Notes Notes: Physical Exam: General: Alert, appears well. HEENT: Normocephalic. Atraumatic. PERRL. Extraocular movements intact. Oropharynx clear. Tongue has a geographical appearance. Neck: Supple. Non-tender. Respiratory: No respiratory distress. Clear and equal breath sounds bilaterally. Cardiovascular: Regular rate and rhythm. Abdominal: Normal Inspection. Non-tender. No distension. Normal Bowel Sounds. Back: No gross abnormalities. Extremities: Moves all four extremities. Upper extremities: Normal inspection. Normal ROM. Lower extremities: Normal inspection. No edema. Normal ROM. Neurological: Normal cognition. AAOx4. Normal speech. Psychological: Normal affect. Normal Mood. Skin: Warm. Dry. Normal color. Course - Re-evaluation Re-evalutation: 10/08/19 12:21 Patient resting comfortably not showing any signs of distress at this time. 10/08/19 12:22 Case discussed with patient's pharmacy regarding what type of Sanborn Magic mouthwash she was receiving. And patient's concoction of the Sanborn Magic mouthwash include nystatin hydrocortisone and diphenhydramine. In discussion with the pharmacy staff we determined that may be as we added Maalox to patient's concoction it would be more palatable for her and not cause further irritation as she continues to treat her geographic tongue issue with this Sanborn Magic mouthwash. I explained to patient how she needs to mix 25% of the cells addition of Maalox to her concoction to make it more Carpenter palatable. - Vital Signs Vital signs: Temp Pulse Resp BP Pulse Ox 98.4 F 94 16 115/82 95 10/08/19 08:03 10/08/19 07:54 10/08/19 07:54 10/08/19 07:54 10/08/19 07:54 - Laboratory Result Diagrams: 10/08/19 10:50 10/08/19 10:50 Laboratory results interpreted by me: 10/08/19 10/08/19 10:50 10:50 RDW 14.2 H Glucose 142 H Laboratories essentially normal except for glucose of 142. Patient is a known problem with glucose metabolism problems and has lost weight and currently not on any medications that she 1 time had been on for blood sugar control. 10/08/19 12:22 A throat culture was obtained which is pending at this time. 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 This condition is not completely understood however is not a cancer or precancerous condition. It is a benign condition that gets better and usually rinses and mouthwashes used to accelerate your healing from this problem. Continue to take your Hawkins's Magic mouthwash as directed with the addition of adding Maalox 25% of it today complete your concoction to make it more palatable for your mouth and ease some of your discomfort. Follow-up with your primary care physician. A throat culture was obtained today and that result is pending as it will incubate in the lab presents with 48 hours. I personally performed the services described in the documentation, reviewed and edited the documentation which was dictated to the scribe in my presence, and it accurately records my words and actions.
== END 2019-10-08 13:34 | disposition home or self-care (01) ==
LOC: ER 07:45
DX: K14.1 Geographic tongue (principal); E11.9 Type 2 diabetes mellitus without complications; R63.4 Abnormal weight loss
CPT/HCPCS: 36415; 80048; 85025; 87070; 99283

== ENCOUNTER 2020-01-22 06:12 | Emergency (ER) | payer OTHER ==
--- NOTE | 2020-01-22 07:31 | RADIOLOGY REPORT (SQ) ---
EXAM DESCRIPTION: XR LUMBAR SPINE 2-3 VIEWS COMPLETED DATE/TME: 01/22/2020 00:00 CLINICAL HISTORY: 59 years, Female, PAIN COMPARISON: 12/08/2017 FINDINGS: 3 views of the lumbar spine. Vertebral body height preserved. No acute cortical step-offs or subluxation. Visualized sacrum and pelvic bones are intact. Pedicles identified throughout. Endplate spondylosis throughout the visualized lumbar spine. Mild disc height narrowing at L5/S1. Aortoiliac atherosclerosis. IMPRESSION: 1. No acute abnormality of the lumbar spine by plain film criteria. copyright 2010 [employer]- All Rights Reserved
--- NOTE | 2020-01-22 08:13 | ER Document Report ---
ED General - General Chief Complaint: Back Pain Stated Complaint: BACK PAIN Time Seen by Provider: 01/22/20 08:11 Primary Care Provider: PETE SCHNEIDER MD [Primary Care Provider] - Follow up as needed TRAVEL OUTSIDE OF THE [place] IN LAST 30 DAYS: No - HPI Notes: 59-year-old female with a history of rzl-pgbusct-uyvopczpv type 2 diabetes presents to the emergency room for complaints of lower back pain after she was scrubbing her shower yesterday morning, she was bent over scrubbing, states when she stood up to go to the sink she felt a sharp pain on both sides with some numbness and tingling to her lower legs. Patient denies falling. Denies any prior back injury in the past. She is better standing than sitting, tried some oovk-btc-osdpdws Tylenol ibuprofen without full relief. Patient states this morning when she woke up the pain was worse. Reports pain is 3 out of 5 at its worse. Patient also reports she does have a rash on her bilateral hands that she noticed after cleaning. Reports that rash is itchy has not tried any igzj-ktj-lomwmsd medications for this. Has had this rash for "years". Her rash was gets exacerbated after cleaning, does not wear gloves when cleaning denies fevers, chills, chest pain,palpitations, shortness of breath, dyspnea, nausea, vomiting, diarrhea, abdominal pain, hematuria,blurred vision, double vision, loss of vision, speech changes, LH, dizziness, syncope, headaches, wheezing, ST, URI, neck pain, weakness, bowel or bladder dysfunction, saddle anesthesia, numbness or tingling in bilateral upper or lower extremities equally, muscle paralysis, weakness in bilateral upper or lower extremities equally. Denies IV drug use. MEDICATIONS: I agree with the patient medications as charted by the RN. ALLERGIES: I agree with the allergies as charted by the RN. PAST MEDICAL HISTORY/PAST SURGICAL HISTORY: Reviewed and agree as charted by RN. SOCIAL HISTORY: Reviewed and agree as charted by RN. FAMILY HISTORY: No significant familial comorbid conditions directly related to patient complaint EXAM: Reviewed vital signs as charted by RN. REVIEW OF SYSTEMS:reviewed vital signs by RN CONSTITUTIONAL : Denies fever, chills, or sweats. Denies recent illness. EENT: Denies eye, ear, throat, or mouth pain or symptoms. Denies nasal or sinus congestion or discharge. Denies throat, tongue, or mouth swelling or difficulty swallowing. CARDIOVASCULAR: Denies chest pain. Denies palpitations or racing or irregular heart beat. Denies ankle edema. RESPIRATORY: Denies cough, cold, or chest congestion. Denies shortness of breath, difficulty breathing, or wheezing. GASTROINTESTINAL: Denies abdominal pain or distention. Denies nausea, vomiting, or diarrhea. Denies blood in vomitus, stools, or per rectum. Denies black, tarry stools. Denies constipation. GENITOURINARY: Denies difficulty urinating, painful urination, burning, frequency, blood in urine, or discharge. FEMALE GENITOURINARY: Denies vaginal bleeding, heavy or abnormal periods, irregular periods. Denies vaginal discharge or odor. MUSCULOSKELETAL: reports bilateral back. denies neck pain or stiffness. Denies joint pain or swelling. SKIN: Denies rash, lesions or sores. Does report a bilateral rash to hands that has been there for years, itchy. HEMATOLOGIC : Denies easy bruising or bleeding. LYMPHATIC: Denies swollen, enlarged glands. NEUROLOGICAL: Denies confusion or altered mental status. Denies passing out or loss of consciousness. Denies dizziness or lightheadedness. Denies headache. Denies weakness or paralysis or loss of use of either side. Denies problems with gait or speech. Denies sensory loss, numbness, or tingling. Denies seizures. PSYCHIATRIC: Denies anxiety or stress. Denies depression, suicidal ideation, or homicidal ideation. ALL OTHER SYSTEMS REVIEWED AND NEGATIVE. PHYSICAL EXAMINATION: GENERAL: Well-appearing, well-nourished and in no acute distress. HEAD: Atraumatic, normocephalic. EYES: Pupils equal round and reactive to light, extraocular movements intact, conjunctiva are normal. ENT: Nares patent, oropharynx clear without exudates. Moist mucous membranes. NECK: Normal range of motion, supple without lymphadenopathy LUNGS: Breath sounds clear to auscultation bilaterally and equal. No wheezes rales or rhonchi. HEART: Regular rate and rhythm without murmurs ABDOMEN: Soft, nontender, nondistended abdomen. No guarding, no rebound. No masses appreciated. Female : deferred Musculoskeletal: Normal range of motion, no pitting or edema. No cyanosis. Pain with flexion and extension at 20 degrees, positive straight leg test on right. Normal hip rotation. DTR +2 in BLE equally. Strength 5 out of 5 both distally and proximally to bilateral lower extremities normal motor and sensory function in BLE equally. Distal pulses + 2 BLE equally. Noted paraspinal tenderness near L2 and L3 on left and right. Strength 5 out of 5 in bilateral lower extremities equally. no spinal tenderness to lumbar or sacral spine. No CVA tenderness bilaterally. Femoral pulses + 2 bilaterally and equally. No abrasions, scars, lacerations, ecchymosis of any recent trauma. normal gait. NEUROLOGICAL: Cranial nerves grossly intact. Normal speech, normal gait. Normal sensory, motor exams PSYCH: Normal mood, normal affect. SKIN: Warm, Dry, normal turgor, no rashes or lesions noted. Bilateral maculopapular rash to bilateral knuckles approximately 1 cm x 1 cm, no satellite lesions, burrowing or linear patterns noted. Dictation was performed using [employer] voice recognition software - Related Data Allergies/Adverse Reactions: No Known Allergies Allergy (Verified 10/08/19 08:01) Past Medical History - General Information source: Patient - Social History Smoking Status: Never Smoker Family History: Reviewed & Not Pertinent, Arthritis, CAD, CVA, DM, Hyperlipidemia, Hypertension, Malignancy - Past Medical History Cardiac Medical History: Reports: Hx Hypercholesterolemia Denies: Hx Congestive Heart Failure, Hx Heart Attack, Hx Hypertension Pulmonary Medical History: Reports: Hx Bronchitis, Hx Pneumonia Denies: Hx Asthma, Hx COPD, Hx Tuberculosis Neurological Medical History: Reports: Hx Cerebrovascular Accident - 1998, Hx Migraine. Denies: Hx Seizures, Hx Parkinson's Disease Endocrine Medical History: Reports: Hx Diabetes Mellitus Type 2 Renal/ Medical History: Reports: Hx Ectopic , Hx Ovarian Cysts. 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 Nurses notes reviewed. No focal neurological deficit on examination. Patient did have a positive straight leg test on the right, she did have some pain with flexion at 30 degrees. Able to reproduce pain when palpated bilateral paraspinal in the lumbar spine. X-ray of lumbar spine negative for any acute pathology per radiology. Patient given 10 mg of Decadron and 60 mg of Toradol IM. Discussed with patient that she does need apply heat 20 minutes on 20 minutes off several times a day, avoid any strenuous activity. Will prescribe her muscle relaxers and anti-inflammatory, advised to not drink, operate heavy machinery or take medication while taking muscle relaxant because sedation or impairment of cognitive function. Advised to follow-up with clinical specialist and primary care provider within the next 24 to 48 hours as needed. Also discussed with patient that she does have a contact dermatitis, will prescribe steroid ointment to put on twice a day, advised to wear gloves when washing dishes or doing any type of cleaning where she can would be in contact with any chemicals. Advised take bely-wkm-tyaqffy Benadryl as needed. After performing a Medical Screening Examination, I estimate there is LOW risk for EXPANDING OR RUPTURED ABDOMINAL AORTIC ANEURYSM, CAUDA EQUINA SYNDROME, EPIDURAL MASS ABSCESS OR LESION(S), OSTEOMYELITIS,PERSONAL HISTORY OF CANCER, IMMUNOSUPPERSSSION, HISTORY OF IV DRUG USE, FRACTURE, CORD COMPERSSION, CANCER, RETROPERITONEAL BLEED, SPINAL EPIDURAL HEMATOMA, or HERNIATED DISK CAUSING SEVERE SPINAL STENOSIS, thus I consider the discharge disposition reasonable. I have reevaluated this patient multiple times and no significant life threatening changes are noted. The patient and I have discussed the diagnosis and risks, and we agree with discharging home and close follow-up. We also discussed returning to the Emergency Department immediately if new or worsening symptoms occur with the understanding that symptoms and presentations can change. We have discussed the symptoms which are most concerning (e.g., saddle anesthesia, urinary or bowel incontinence or retention, changing or worsening pain) that necessitate immediate return. 01/22/20 09:51 - Vital Signs Vital signs: Temp Pulse Resp BP Pulse Ox 98.8 F 86 16 133/74 H 95 01/22/20 06:16 01/22/20 06:16 01/22/20 06:16 01/22/20 06:16 01/22/20 06:16 Discharge - Discharge Clinical Impression: Contact dermatitis Sciatica Qualifiers: Laterality: bilateral Qualified Code(s): M54.31 - Sciatica, right side; M54.32 - Sciatica, left side Condition: Stable Disposition: HOME, SELF-CARE Instructions: Muscle Strain ([facility]), Low Back Pain ([facility]), Warm Packs ([facility]), Pain Medication Injection ([facility]), Contact Dermatitis ([facility]) Additional Instructions: LOW BACK PAIN: Three out of every four people will have an episode of disabling back pain during their lifetime. Most commonly the pain is due to straining of the muscles and ligaments in the low back. Usual treatment includes: (1) Rest on a firm surface. Avoid lying on your stomach. (2) Ice pack the painful area. After a few days, gentle heat may be used intermittently to relax the area, or ice packs can be continued. (3) Medication may be needed -- muscle relaxers and antiinflammatory medicines are commonly used. (4) As the back improves, exercises are prescribed to strengthen the back and abdominal muscles. Your doctor will advise you on the proper care for your back at each stage in your recovery. You may be better in a few days -- or healing may take several weeks. If new symptoms of a "herniated disc" (radiation of pain, numbness, or tingling down the back of the leg or weakness in the leg) occur, you should be re-examined. Further testing may be necessary. PAIN MEDICATION INJECTION: You have received an injection of a pain medication. You should experience significant pain relief within 45 minutes. If this injection was a narcotic -- it will impair your judgement, slow your reaction time and make you sleepy (as well as relieve your pain). Narcotics also can cause nausea. You should not drive, work with machinery, or perform any task requiring mental alertness until all effects of the medication are gone -- six to eight hours. Do not take any alcohol, or sedatives, and do not take any other medication without checking with your physician. Muscle relaxing medications are usually prescribed for acute muscle spasm or injury to the neck and back. They are often combined with antiinflammatory pain medication for increased relief. You may stop the muscle relaxer when the pain and stiffness have improved. Start the medication again if spasms recur. Muscle relaxers may cause drowsiness, especially with the first dose. Do not operate machinery or drive while under the effects of the medication. Most muscle relaxers last up to 24 hours. Do not combine the medication with alcohol. ICE PACKS: Apply ice packs frequently against the painful area. Many different schedules are recommended, such as "20 minutes on, 20 minutes off" or "one hour ice, two hours rest." If you need to work, you may need to go longer between ice treatments. You should plan to have the area ice packed AT LEAST one fourth of the time. The ice should be applied over the wrap, tape, or splint, or over a layer of cloth -- not directly against the skin. Some ice bags have a built-in cloth and can be put directly on the skin. WARM PACKS: After approximately two days, apply gentle heat (such as a heating pad or hot water bottle) for about 20 to 30 minutes about every two hours -- at least four times daily. Warmth and elevation will help you make a more rapid recovery, and will ease the pain considerably. Do not use HOT heat, and never apply heat for longer than 30 minutes. The continuous heat can invisibly damage skin and muscles -- even when no burn is seen on the surface. Damaged muscles can make you MORE sore. FOLLOW-UP CARE: If you have been referred to a physician for follow-up care, call the physicians office for an appointment as you were instructed or within the next two days. If you experience worsening or a significant change in your symptoms, notify the physician immediately or return to the Emergency Department at any time for re-evaluation. Prescriptions: Triamcinolone Acetonide [Aristocort 0.025% Cream] 1 applic TP BID #30 gram Naproxen 500 mg PO BID #10 tablet Methocarbamol [Robaxin 500 mg Tablet] 500 mg PO QID PRN #15 tablet PRN Reason: Referrals: PETE SCHNEIDER MD [Primary Care Provider] - Follow up as needed BRIT ALVARES MD [ACTIVE STAFF] - Follow up as needed
[2020-01-22] MEDS ORDERED: DEXAMETHASONE SOD PHOS INJ 10 MG/1 ML VIAL IM ONE (08:35)
[2020-01-22] MEDS ORDERED: KETOROLAC TROMETHAMINE 60 MG/2 ML SDV IM ONE (08:35)
[2020-01-22 08:51] VITALS: BP 127/74
== END 2020-01-22 09:02 | disposition home or self-care (01) ==
LOC: ER 06:12
DX: M54.31 Sciatica, right side (principal); M54.32 Sciatica, left side; L25.9 Unspecified contact dermatitis, unspecified cause; E11.9 Type 2 diabetes mellitus without complications; E78.00 Pure hypercholesterolemia, unspecified; Z79.4 Long term (current) use of insulin
CPT/HCPCS: 99284; 96372; 72100; J1885; J1100

== ENCOUNTER → 2020-02-09 | Outpatient (CLI) | payer OTHER ==
[2020-02-09 10:47] LABS: ABSOLUTE EOSINOPHILS # (AUTO) 0.1 10^3/uL (0.0-0.6); ABSOLUTE LYMPHOCYTES (AUTO) 1.9 10^3/uL (0.5-4.7); ABSOLUTE MONOCYTES (AUTO) 0.3 10^3/uL (0.1-1.4); ABSOLUTE NEUT (AUTO) 3.2 10^3/uL (1.7-8.2); BASOPHILS % (AUTO) 0.6 % (0-2); EOSINOPHILS % (AUTO) 2.5 % (0-6); HEMATOCRIT 36.9 % (36.0-47.0); HEMOGLOBIN 12.6 g/dL (12.0-15.5); LYMPHOCYTES % (AUTO) 33.8 % (13-45); MEAN CORPUSCULAR HEMOGLOBIN 28.9 pg (27.0-33.4); MEAN CORPUSCULAR HGB CONC 34.2 g/dL (32.0-36.0); MEAN CORPUSCULAR VOLUME 85 fl (80-97); PLATELET COUNT 205 10^3/uL (150-450); RED BLOOD COUNT 4.36 10^6/uL (3.72-5.28); RED CELL DISTRIBUTION WIDTH 13.5 % (11.5-14.0); SEGMENTED NEUTROPHILS % (AUTO) 57.1 % (42-78); TOTAL CELLS COUNTED % (AUTO) 100 %; WHITE BLOOD COUNT 5.6 10^3/uL (4.0-10.5)
[2020-02-09 11:12] LABS: BLOOD UREA NITROGEN 23 mg/dL (7-20); CALCIUM 9.3 mg/dL (8.4-10.2); GLUCOSE 169 mg/dL (75-110)
[2020-02-09 11:13] LABS: ALBUMIN 4.4 g/dL (3.5-5.0); ALKALINE PHOSPHATASE 93 U/L (38-126); ANION GAP 11 (5-19); ASPARTATE AMINO TRANSFERASE 25 U/L (14-36); BILIRUBIN,DIRECT 0.2 mg/dL (0.0-0.4); BILIRUBIN,TOTAL 0.5 mg/dL (0.2-1.3); CARBON DIOXIDE 24 mmol/L (22-30); CHLORIDE 105 mmol/L (98-107); CHOLESTEROL 166.09 mg/dL (0-200); POTASSIUM 4.5 mmol/L (3.6-5.0); TOTAL PROTEIN 7.6 g/dL (6.3-8.2); TRIGLYCERIDES 115 mg/dL (<150)
[2020-02-09 11:24] LABS: DIRECT LDL 85 mg/dL (<100)
[2020-02-09 14:45] LABS: APPEARANCE,URINE CLEAR; BILIRUBIN,URINE NEGATIVE (NEGATIVE); COLOR,URINE YELLOW; GLUCOSE, URINE NEGATIVE (NEGATIVE); KETONES,URINE NEGATIVE (NEGATIVE); LEUKOCYTE ESTERASE,URINE NEGATIVE (NEGATIVE); NITRITE,URINE NEGATIVE (NEGATIVE); PROTEIN,URINE NEGATIVE (NEGATIVE); URINE SPECIFIC GRAVITY 1.032; UROBILINOGEN,URINE NEGATIVE mg/dL (<2.0)
[2020-02-11 11:37] LABS: CREATININE URINE 226.1 mg/dL (Not Estab.); MICROALBUMIN URINE 17.5 ug/mL (Not Estab.)
== END ==
LOC: CCC 09:49
PROVIDERS: ATTEND Internal Medicine
DX: E78.5 Hyperlipidemia, unspecified (principal); E11.8 Type 2 diabetes mellitus with unspecified complications
CPT/HCPCS: 36415; 80053; 80061; 81001; 82043; 82570; 83036; 84443; 85025

== ENCOUNTER → 2020-02-09 | Outpatient (CLI) | payer BC, OTHER ==
--- NOTE | 2020-02-09 16:05 | WOMENS IMAGING REPORT ---
EXAM DESCRIPTION: SHAI WARRIOR 3D BILAT SCREEN IMAGES COMPLETED DATE/TIME: 02/09/2020 1:49 pm [facility] STUDY[facility] SCREEN [facility]AM[facility] FOR MALIGNANT NEOPLASM OF BREAST Z12.31 ENCNTR SCREEN MAMMOGRAM FOR MALIGNANT NEOPLASM OF SUZI COMPARISON: 2016 to 2018 EXAM PARAMETERS: Views: Standard craniocaudal and mediolateral oblique views of each breast recorded using digital acquisition and breast tomosynthesis. Read with the assistance of CAD. .[facility] - [employer] Supervisor Version 9.2 LIMITATIONS: None. FINDINGS: No suspicious masses, suspicious calcifications or architectural distortion. No areas of c oncern. IMPRESSION: NEGATIVE MAMMOGRAM. BIRADS 1. BREAST DENSITY: a. The breasts are almost entirely fatty. BIRAD: ASSESSMENT: 1 NEGATIVE RECOMMENDATION: ROUTINE SCREENING COMMENT: The patient has been notified of the results by letter per MQSA requirements. Additional no tification policies are in place for contacting patient with suspicious or incomplete findings. Quality ID #225: The [employer] recommends an annual screening mammogram for women aged 40 years or over. This facility utilizes a reminder system to ensure that all patients receive reminder letters, and/or direct phone calls for appointments. This includes reminders for routine scr eening mammograms, diagnostic mammograms, or other Breast Imaging Interventions when appropriate. Th is patient will be placed in the appropriate reminder system. TECHNICAL DOCUMENTATION: FINDING NUMBER: (1) ASSESSMENT: (1) JOB ID: [id number] 2010 [employer]- All Rights Reserved Reading location - IP/workstation name: [email or web address]
== END ==
LOC: WI 12:26
PROVIDERS: ATTEND Midwife
DX: Z12.31 Encounter for screening mammogram for malignant neoplasm of breast (principal)
CPT/HCPCS: 77063

== ENCOUNTER → 2020-02-09 | Outpatient (CLI) | payer OTHER ==
--- NOTE | 2020-02-09 13:01 | RADIOLOGY REPORT (SQ) ---
EXAM DESCRIPTION: U/S EXTREMITY NONVASCULAR COMP IMAGES COMPLETED DATE/TIME: 02/09/2020 12:09 pm REASON FOR STUDY: M71.20 SYNOVIAL CYST OF POPLITEAL SPACE SEBASTIAN, UNSPECIFIED KNEE M25.562 PAIN IN L EFT KNEE M71.20 SYNOVIAL CYST OF POPLITEAL SPACE SEBASTIAN, UNSPECIFIED COMPARISON: None. TECHNIQUE: Static and real time cortes scale ultrasound Doppler spectral analysis, and color Doppler a cquired in the popliteal fossa on the right and left. LIMITATIONS: None. FINDINGS: POPLITEAL ARTERY: Popliteal artery is normal. No aneurysm. No significant stenosis. POPLITEAL VEIN:Popliteal vein is normal. No thrombosis. SOFT TISSUES: No masses. Particularly, no popliteal cyst OTHER:No other significant findings. IMPRESSION: No significant finding in the popliteal fossa on either side. TECHNICAL DOCUMENTATION: JOB ID: [id number] 2010 [employer]- All Rights Reserved Reading location - IP/workstation name: [email or web address]
--- NOTE | 2020-02-09 14:23 | RADIOLOGY REPORT (SQ) ---
EXAM DESCRIPTION: MRI LT LOWER JOINT WITHOUT IMAGES COMPLETED DATE/TIME: 02/09/2020 11:44 am REASON FOR STUDY: M25.562 PAIN IN LEFT KNEE M25.562 PAIN IN LEFT KNEE M71.20 SYNOVIAL CYST OF POPL ITEAL SPACE ROMULO, UNSPECIFIED COMPARISON: None. TECHNIQUE: Leftknee images acquired and stored on PACS. Multiplanar images include fat sensitive se quences as T1, water sensitive sequences as FST2 or STIR, cartilage sensitive sequences as FSPD, and gradient echo sequences. LIMITATIONS: None. FINDINGS: JOINT AND BURSAE: Joint effusion. 2 cm popliteal cyst. BONE CORTEX AND MARROW: No alteration of signal to suggest marrow replacement. No worrisome bone lesi ons. No occult fracture. ACL: Diffuse myxoid degeneration. PCL: Intact. MCL: Intact. No periligamentous edema or fluid. LCL: Intact. No periligamentous edema or fluid. MEDIAL MENISCUS: Complex tear with a flap component, horizontal component, and vertical radial compon ent. There is a small peripheral meniscal cyst. Meniscus is subluxed along the medial joint line. LATERAL MENISCUS: Vertical radial tear extending to a flap tear and large horizontal tear. MEDIAL COMPARTMENT: Marked degenerative changes with generalize cartilaginous loss, subchondral cysts , osteophytes, and reactive edema. LATERAL COMPARTMENT: Degenerative changes less prominent than the medial compartment. PATELLA: Chondromalacia and loss of trochlear cartilage. Patellofemoral osteophytes. EXTENSOR MECHANISM: Intact. Quadriceps and patella tendons normal. SOFT TISSUES: Adjacent muscles and subcutaneous tissues normal. Normal flow void in popliteal artery and vein. OTHER: No other significant finding. IMPRESSION: Bilateral meniscal tearsboth complex. 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 Joint effusion with very small popliteal cyst. TECHNICAL DOCUMENTATION: JOB ID: [id number] 2010 [employer]- All Rights Reserved Reading location - IP/workstation name: [email or web address]
== END ==
LOC: RAD 10:57
DX: M17.12 Unilateral primary osteoarthritis, left knee (principal); M71.22 Synovial cyst of popliteal space [Baker], left knee; M25.562 Pain in left knee
CPT/HCPCS: 76881

== ENCOUNTER → 2020-03-06 | Outpatient (CLI) | payer OTHER ==
[2020-03-06 09:35] LABS: APPEARANCE,URINE CLEAR; BILIRUBIN,URINE NEGATIVE (NEGATIVE); COLOR,URINE YELLOW; GLUCOSE, URINE NEGATIVE (NEGATIVE); KETONES,URINE NEGATIVE (NEGATIVE); LEUKOCYTE ESTERASE,URINE NEGATIVE (NEGATIVE); NITRITE,URINE NEGATIVE (NEGATIVE); PROTEIN,URINE NEGATIVE (NEGATIVE); URINE SPECIFIC GRAVITY 1.025; UROBILINOGEN,URINE NEGATIVE mg/dL (<2.0)
[2020-03-06 09:59] LABS: ANION GAP 11 (5-19); BLOOD UREA NITROGEN 19 mg/dL (7-20); CALCIUM 9.5 mg/dL (8.4-10.2); CARBON DIOXIDE 25 mmol/L (22-30); CHLORIDE 103 mmol/L (98-107); GLUCOSE 142 mg/dL (75-110); POTASSIUM 4.3 mmol/L (3.6-5.0)
== END ==
LOC: OD 08:40
PROVIDERS: ATTEND Internal Medicine
DX: E11.65 Type 2 diabetes mellitus with hyperglycemia (principal); R35.0 Frequency of micturition
CPT/HCPCS: 36415; 80048; 81001; 87086; 87088